=== PATIENT | male | born 1960 | race Two or more races ===

== ENCOUNTER 2020-06-30 13:23 | Outpatient (REF) | payer MEDICARE, MEDICAID, SELFPAY ==
--- NOTE | 2020-06-30 13:47 | ECG_ITS ---
Test Reason : CP Blood Pressure : / mmHG Vent. Rate : 070 BPM Atrial Rate : 070 BPM P-R Int : 156 ms QRS Dur : 090 ms QT Int : 388 ms P-R-T Axes : 048 -48 021 degrees QTc Int : 419 ms Normal sinus rhythm Left axis deviation Abnormal ECG When compared with ECG of 29-APR-2010 13:33, No significant change was found Referred By: Dinorah Pride Electronically Signed By:Cam Villavicencio
[2020-06-30 14:15] LABS: Basophils Percent Auto 0.2 % (0-2); Eosinophils Percent Auto 37.5 % (0-4); Hematocrit 41.6 % (42-52); Hemoglobin 14.2 g/dl (14.0-18.0); Imm Gran Abs Auto 0.01 X10*3/uL (0.00-0.03); Imm Gran Pct Auto 0.2 % (0.0-0.4); Lymphocytes Absolute Auto 0.7 X10*3/uL (1.2-4.9); Lymphocytes Percent Auto 12.1 % (20-40); MANUAL DIFF FLAG SCAN; Mean Corpuscular HGB Conc 34.1 g/dl (31.0-36.0); Mean Corpuscular Hemoglobin 32.3 pg (27.0-33.0); Mean Corpuscular Volume 94.5 fL (80-98); Mean Platelet Volume 9.7 fL (9.4-12.4); Monocytes Absolute Auto 0.5 X10*3/uL (0.1-1.2); Neutrophils Absolute Auto 2.2 X10*3/uL (2.0-8.3); Platelet Count 158 X10*3/uL (160-400); Red Cell Distribution Width 13.1 % (11.0-16.0); SCAN SMEAR FLAG 1; White Blood Count 5.4 X10*3/uL (4.8-10.8)
[2020-06-30 14:54] LABS: Alanine Aminotransferase 26 U/L (0-40); Albumin Level 4.4 g/dL (3.5-5.0); Alkaline Phosphatase 103 U/L (39-117); Aspartate Amino Transferase 18 U/L (5-37); Bilirubin Total 0.3 mg/dL (0.0-1.0); Blood Urea Nitrogen 17 mg/dL (9-16); Cholesterol 183 mg/dL; Estimated Glomerular Filt Rate > 60; Glucose Random 110 mg/dL (60-115); HDL Cholesterol 31 mg/dL; LDL Cholesterol Calculated 127 mg/dl; Total Protein 7.9 g/dL (6.5-8.0); Triglycerides 128 mg/dL
[2020-06-30 15:01] LABS: Troponin-I High Sensitivity < 3.5 ng/L (<3.5-35.0)
[2020-06-30 15:05] LABS: SLIDE REVIEW VERIFIED
[2020-06-30 15:09] LABS: Free T4 (Free Thyroxine) 0.79 ng/dL (0.71-1.85); Thyroid Stimulating Hormone 1.91 uIU/mL (0.32-4.0)
[2020-06-30 15:10] LABS: Anion Gap 14 (12-20); Carbon Dioxide 26 mmol/L (22-29); Chloride 104 mmol/L (96-108); Potassium 4.4 mmol/l (3.3-5.1); Sodium 140 mmol/L (135-145)
[2020-06-30 15:27] LABS: Folate 9.4 ng/mL (> or = 4.0); Vitamin B12 290 pg/mL (200-900)
== END 2020-06-30 13:24 | disposition home or self-care (01) ==
LOC: HO.LAB 13:23
PROVIDERS: Absent Provider Nurse Practitioner Family; PCP Internal Medicine; Visit Provider Internal Medicine
DX: I10 Essential (primary) hypertension (principal); E78.00 Pure hypercholesterolemia, unspecified; R07.9 Chest pain, unspecified; Z12.5 Encounter for screening for malignant neoplasm of prostate
CPT/HCPCS: 36415; 80053; 80061; 82607; 82746; 84153; 84439; 84443; 84484; 85025; 93005

== ENCOUNTER 2020-07-02 14:23 | Outpatient (REF) | payer MEDICARE, MEDICAID, SELFPAY | END 2020-07-02 14:24 | disposition home or self-care (01) | LOC: HO.LAB 14:23 | PROVIDERS: Visit Provider Internal Medicine | DX: Z20.828 Contact with and (suspected) exposure to other viral communicable diseases (principal) | CPT/HCPCS: 36415; C9803; U0003 ==

== ENCOUNTER 2020-07-18 05:36 | Emergency (ER) | payer MEDICARE, MEDICAID, SELFPAY ==
[2020-07-18 05:46] VITALS: BP 177/104; PULSE 92; RESP 16; TEMP 36.6; O2SAT 97
--- NOTE | 2020-07-18 05:53 | ECG_ITS ---
Test Reason : CHEST PAIN Blood Pressure : / mmHG Vent. Rate : 099 BPM Atrial Rate : 099 BPM P-R Int : 190 ms QRS Dur : 078 ms QT Int : 340 ms P-R-T Axes : 061 -65 072 degrees QTc Int : 436 ms Sinus rhythm with frequent Premature ventricular complexes Left axis deviation Inferior infarct , possibly acute Lateral injury pattern ACUTE [place] / STEMI Abnormal ECG When compared with ECG of 30-JUN-2020 13:58, Premature ventricular complexes are now Present ST elevation now present in Inferior leads Referred By: Michelle Kaur Electronically Signed By:JOSEPH SAWYER
--- NOTE | 2020-07-18 06:00 | PC.NURSE ---
PT TO ROOM WITH C/O MID STERNAL CP AND LEFT ARM NUMBNESS WHICH STARTED AROUND 2300 LAST NIGHT. PT DENIES NAUSEA/VOMITING AT THIS TIME. PT ARRIVES A&OX3 SKIN W/D. RESPIRATIONS EASY, N/L. MD AT BEDSIDE FOR EVAL AND EKG DONE TO MD FOR EVAL.
--- NOTE | 2020-07-18 06:07 | PC.NURSE ---
@ [address] [facility] STAT PAGE LINE CALLED [phone] FOR [facility] [employer] [employer] TENDER TAKES DR LESTER, CALL BACK NUMBER AND SAYS SHE WILL PLACE THE PAGE OUT TO DR RICHEY FOR OUR CALL BACK
--- NOTE | 2020-07-18 06:10 | PC.NURSE ---
@ 0609 [facility] CALLED FOR STEMI STANDBY JENNIFER TAKES PT INFO AND SAYS SHE WILL SEND THEM OVER @ 0610 CALL BACK FROM [facility] INTERVENTIONAL SHIPPING PACKER ANSWERS THIS CALL, DR HUTSON PAGED [id number] TO COSMETIC DENTIST
[2020-07-18] MEDS: Metoprolol Tartrate 5 MG/5 ML VIAL IVPUSH (06:15)
[2020-07-18 06:20] LABS: Basophils Percent Auto 0.3 % (0-2); Eosinophils Absolute Auto 2.5 X10*3/uL (0.0-0.4); Eosinophils Percent Auto 30.8 % (0-4); Hematocrit 39.2 % (42-52); Hemoglobin 13.7 g/dl (14.0-18.0); Imm Gran Abs Auto 0.01 X10*3/uL (0.00-0.03); Imm Gran Pct Auto 0.1 % (0.0-0.4); Lymphocytes Absolute Auto 0.8 X10*3/uL (1.2-4.9); Lymphocytes Percent Auto 10.2 % (20-40); MANUAL DIFF FLAG NO; Mean Corpuscular HGB Conc 34.9 g/dl (31.0-36.0); Mean Corpuscular Hemoglobin 32.3 pg (27.0-33.0); Mean Corpuscular Volume 92.5 fL (80-98); Mean Platelet Volume 9.4 fL (9.4-12.4); Monocytes Absolute Auto 0.3 X10*3/uL (0.1-1.2); Monocytes Percent Auto 4.1 % (2-11); Neutrophils Absolute Auto 4.4 X10*3/uL (2.0-8.3); Neutrophils Percent Auto 54.5 % (45-73); Platelet Count 200 X10*3/uL (160-400); Red Blood Count 4.24 X10*6/uL (4.60-5.80); Red Cell Distribution Width 12.3 % (11.0-16.0)
[2020-07-18] MEDS: Morphine Sulfate 2 MG/ML CARTRIDGE IVPUSH (06:20)
[2020-07-18] MEDS: Ticagrelor 90 MG TABLET 180 MG PO (06:20)
--- NOTE | 2020-07-18 06:20 | PC.NURSE ---
[facility] ARRIVES @ THIS TIME FOR ALS TRANSPORT TO [facility]
--- NOTE | 2020-07-18 06:30 | PC.NURSE ---
EMS TRANSPORTED PT TO [facility] [employer] [employer] [facility]PER[facility] AT THIS TIME. REPORT GIVEN TO [employer] OPER[employer].
--- NOTE | 2020-07-18 06:31 | PC.NURSE ---
[facility] [place] [facility]
--- NOTE | 2020-07-18 06:32 | ED_ITS ---
HPI - Chest Pain General Chief Complaint: Chest Pain Stated Complaint: CHEST PAIN Time Seen by Provider: 07/18/20 05:47 Source: patient Mode of arrival: ambulatory Limitations: no limitations History of Present Illness HPI narrative: Patient came to the emergency room complaining of substernal chest pain, dull, 03/06 that started at 23:00. Patient states that throughout the night the pain got worse. Patient has no cardiac history other than hypertension. MD complaint: chest pain Related Data Home Medications Medication Instructions Recorded Confirmed albuterol sulfate 90 mcg/actuation 2 puff INHALATION QID PRN 05/06/20 05/06/20 aerosol inhaler fluticasone furoate 200 1 inh INHALATION DAILY 05/06/20 05/06/20 mcg-vilanterol 25 mcg/dose inhalation powder Previous Rx's Medication Instructions Recorded dextromethorphan-guaifenesin 30 1 tab PO Q12H PRN 10 Days #20 tab 06/30/20 mg-600 mg tablet extended [id number] hr lisinopril 10 mg tablet 10 mg PO DAILY #90 tab 06/30/20 Allergies Allergy/AdvReac Type Severity Reaction Status Date / Time No Known Allergies Allergy Verified 05/06/20 13:33 Review of Systems Review of Systems: Constitutional : No Weight loss, No Fever, No Chills, No Night Sweats, No Fatigue, No Malaise ENT/Mouth : No Hearing loss, No Ear Pain, No Nasal Congestion, No Sinus Pain, No Hoarseness, No sore throat, No Rhinorrhea, No Swallowing Difficulty Eyes: No Eye Pain, No Swelling, No Redness, No Foreign Body, No Discharge, No Vision Changes Cardiovascular complaining of Chest Pain, No SOB, No Dyspnea on Exertion, No Orthopnea, No Edema, No Palpitations Respiratory : No Cough, No Sputum, No Wheezing, No Smoke Exposure, No Dyspnea Gastrointestinal : No Nausea, No Vomiting, No Diarrhea, No Constipation, No abdo nohemy Pain, No Hematochezia, No Melena Genitourinary : no irregular bleeding, No Dysuria, No Urinary Frequency, No Hematuria, No Urinary Incontinence, No Urgency, No Flank Pain, No Urinary Flow Changes, No Hesitancy Musculoskeletal : No joint pain, No Myalgias, No Joint Swelling Skin : No Skin Lesions, No rash Neuro : No Weakness, No Numbness, No Paresthesias, No Loss of Consciousness, No Dizziness, No Headache Psych : No Anxiety/Panic, No Depression, No SI/HI/AH/VH, No Social Issues, Heme/Lymph: No Bruising, No Bleeding,No Lymphadenopathy Endocrine : No Polyuria, No Polydipsia, No Temperature Intolerance [facility], [facility] Past Medical History Medical History Asthma Chest pain in adult Fatty liver GERD (gastroesophageal reflux disease) Hypertension Hypertriglyceridemia Impaired glucose tolerance Obesity (BMI 30-39.9) Surgical History (Updated 05/05/20 @ 08:30 by BONNIE Ferrer) No pertinent past surgical history Family History Family History (Updated 05/05/20 @ 08:30 by BONNIE Ferrer) Father Myocardial infarction Diabetes Mother Diabetes Social History Social History (Updated 05/06/20 @ 13:34 by Jai Sams MD) Alcohol intake: never Smoking Status: Never smoker Advance Directives: No Advance Directives Information Provided: No Physical Exam Vital Signs: Vital Signs: Last Vital Signs Temp 97.9 F 07/18/20 05:46 Pulse 92 07/18/20 05:46 Resp 16 07/18/20 05:46 BP 177/104 H 07/18/20 05:46 Pulse Ox 97 07/18/20 05:46 Body Mass Index 0.3 Appearance: Alert. Oriented X3. No acute distress. Eyes: Pupils equal, round and reactive to light. ENT: Pharynx normal. Neck: Normal inspection. Neck supple. No lymph nodes noted. No crepitus CVS: Normal heart rate and rhythm. Pulses normal. Normal S1 and S2 Respiratory: No respiratory distress. Breath sounds normal. No Wheezing. No rales Abdomen: Soft and nontender. No rigidity. No distention. good BS x4 Skin: Skin warm and dry. Normal skin color. Normal skin turgor. Extremities: No lower extremity edema. No lower extremity edema. No Lacerations. No Rash Neuro: Oriented X 3. No motor deficit. No sensory deficit. Moving all extermities. No slurred speech. Course Course Course Narrative: I discussed the patient with Dr. Trejo, patient is being transferred to the dentures lab technician. At this time of discharge, patient is still complaining of chest pain, states it is better, 8/10. received morphine, pt feeling better. Not diaphoretic. Pulse 92, 181/101. Of note, patient tested positive for COVID-19 on 07/02/2020. Patient has no respiratory symptoms. MDM - Chest Pain Lab Data Result diagrams: 07/18/20 06:14 07/18/20 06:14 ECG Data ECG #1: Attestation: I personally reviewed and interpreted this ECG as follows: (ST segment elevation in the inferior leads, and V3 through V6, acute STEMI) Discharge Plan Discharge Clinical Impression: ST elevation (STEMI) myocardial infarction Patient Disposition: Xfer [facility] Prescriptions: No Action albuterol sulfate 90 mcg/actuation HFA aerosol inhaler 2 puff inhalation QID PRNRF: 0 Breo Ellipta 200-25 mcg/dose blister with device 1 inh inhalation DAILY RF: 0 Mucinex DM 30-600 mg tablet extended release 12 hr 1 tab PO Q12H PRN (Reason: cough) 10 Days Qty: 20 RF: 0 lisinopril 10 mg tablet 10 mg PO DAILY Qty: 90 RF: 1
[2020-07-18 06:42] LABS: Anion Gap 15 (12-20); Blood Urea Nitrogen 26 mg/dL (9-16); Calcium 9.3 mg/dL (8.4-10.2); Carbon Dioxide 23 mmol/L (22-29); Chloride 102 mmol/L (96-108); Estimated Glomerular Filt Rate 59; Glucose Random 243 mg/dL (60-115); Sodium 136 mmol/L (135-145)
[2020-07-18] MEDS: Atorvastatin Calcium 80 MG TABLET PO (06:45)
[2020-07-18] MEDS: Aspirin Enteric Coated 325 MG TABLET.DR PO (06:48)
[2020-07-18] MEDS: Heparin Sodium,Porcine 5,000 UNIT/ML VIAL 5000 UNIT IVPUSH (06:54)
[2020-07-18 06:56] LABS: Troponin-I High Sensitivity 282.7 ng/L (<3.5-35.0)
[2020-07-18 07:00] LABS: IDNOW Serial# 9DD0AD1C
--- NOTE | 2020-07-18 07:02 | PC.NURSE ---
IV X 2 ESTABLISHED TO [facility]. LABS DRAWN TO LAB, PT MEDICATED PER [facility] AND EMS HERE FOR TRANSPORT TO PHARMACEUTICAL [facility]OT[facility]IST AT [facility].
[2020-07-18 07:03] LABS: COVID-19 Test Positive (Negative)
--- NOTE | 2020-07-18 07:17 | PC.NURSE ---
This RN witnessed the Heparin that was hung by Char Rodrigez RN. The heparin was hung at 14u/kg. Pt was an emergent STEMI transfer. Heparin was ordered by Dr. Kaur after consultation with Intermediate Accountant interventionalist.
== END 2020-07-18 07:06 | disposition short-term general hospital (02) ==
PROVIDERS: Emergency Provider Emergency Medicine; PCP Internal Medicine
DX: I21.19 ST elevation (STEMI) myocardial infarction involving other coronary artery of inferior wall (principal); U07.1 COVID-19; I10 Essential (primary) hypertension; E66.9 Obesity, unspecified; J45.909 Unspecified asthma, uncomplicated; K21.9 Gastro-esophageal reflux disease without esophagitis; K76.0 Fatty (change of) liver, not elsewhere classified
CPT/HCPCS: 36415; 80048; 84484; 85025; 87635; 93005; 96365; 96375; 96376; 99285; J2270

== ENCOUNTER 2020-09-13 20:11 | Emergency (ER) | payer MEDICARE, MEDICAID, SELFPAY ==
[2020-09-13 20:14] VITALS: BP 135/85; PULSE 74; RESP 18; TEMP 36.9; O2SAT 99
[2020-09-13 20:31] VITALS: BP 135/75; PULSE 69; RESP 18; O2SAT 98; BMI 31.5
--- NOTE | 2020-09-13 20:37 | ED_ITS ---
HPI - Allergic Reaction General Chief complaint: Allergic Reaction Stated complaint: ALLERGIC REACTION] Time Seen by Provider: 09/13/20 20:37 Source: patient Mode of arrival: ambulatory Limitations: no limitations History of Present Illness HPI narrative: Pleasant 60-year-old female presenting with his knees he has a history as noted below including history of asthma, hypertension in addition to other history as noted below he is on lisinopril which he has been on for many years now he has known seafood allergy he presents today with complaint of left- sided upper lip swelling this occurred this afternoon around 16:00 where he started noticing tingling and lip swelling that was relatively localized to the upper lip on the left side and there was no additional swelling of the tongue or difficulty breathing. States this may have been contributed to the fact that he had some takeout yesterday from a restaurant and though it did not have any obvious seafood it could have been the fried in the same oils but he is not certain it and he felt fine but this afternoon at 16:00 noted the lip swelling. In addition to this again he is on lisinopril. He denies any chest pain or shortness of breath no difficulty speaking, no sore throat, or tongue swelling, no rash or urticaria. No recent illness. MD complaint: facial swelling Severity: moderate Treatment prior to arrival: benadryl (25 mg Benadryl several hours prior to a rrive with no change) Previous Allergic Reaction History: none Related Data Home Medications Medication Instructions Recorded Confirmed atorvastatin 1 tab PO DAILY 09/13/20 09/13/20 benzonatate 1 cap PO BID PRN 09/13/20 09/13/20 fluticasone furoate-vilanterol 1 puff PO DAILY 09/13/20 09/13/20 [Breo Ellipta] fluticasone propionate 1 spray INTRANASAL BID 09/13/20 09/13/20 metoprolol succinate 1 tab PO DAILY 09/13/20 09/13/20 ticagrelor [Brilinta] 1 tab PO BID 09/13/20 09/13/20 zafirlukast 1 tab PO BID 09/13/20 09/13/20 Previous Rx's Medication Instructions Recorded prednisone 40 mg PO DAILY 5 Days #10 tab 09/13/20 Allergies Allergy/AdvReac Type Severity Reaction Status Date / Time No Known Allergies Allergy Verified 07/29/20 17:43 Review of Systems Review of Systems: Constitutional: No Weight loss, No Fever, No Chills, No Night Sweats, No Fatigue, No Malaise ENT/Mouth: No Hearing loss, No Ear Pain, No Nasal Congestion, No Sinus Pain, No Hoarseness, No sore throat, No Rhinorrhea, No Swallowing Difficulty Eyes: No Eye Pain, No Swelling, No Redness, No Foreign Body, No Discharge, No Vision Changes Cardiovascular: No Chest Pain, No SOB, No Dyspnea on Exertion, No Orthopnea, No Edema, No Palpitations Respiratory: No Cough, No Sputum, No Wheezing, No Smoke Exposure, No Dyspnea Gastrointestinal: No Nausea, No Vomiting, No Diarrhea, No Constipation, No abdominal Pain, No Hematochezia, No Melena Genitourinary: No Dysuria, No Urinary Frequency, No Hematuria, No Urinary Incontinence, No Urgency, No Flank Pain, No Urinary Flow Changes, No Hesitancy Musculoskeletal: No joint pain, No Myalgias, No Joint Swelling Skin: No Skin Lesions, No rash Neuro: No Weakness, No Numbness, No Paresthesias, No Loss of Consciousness, No Dizziness, No Headache Psych: No Social Issues Heme/Lymph: No Bruising, No Bleeding,No Lymphadenopathy Endocrine: No Polyuria, No Polydipsia, No Temperature Intolerance Yes all other systems are reviewed and are negative [facility] Past Medical History Medical History Asthma Chest pain in adult Fatty liver GERD (gastroesophageal reflux disease) Hypertension Hypertriglyceridemia Impaired glucose tolerance Obesity (BMI 30-39.9) Surgical History No pertinent past surgical history Status post cardiac catheterization Family History Family History (Updated 05/05/20 @ 08:30 by BONNIE Ferrer) Father Myocardial infarction Diabetes Mother Diabetes Social History Social History Alcohol intake: never Smoking Status: Never smoker Use of substances other than those prescribed or required for medical reasons: No Advance Directives: No Advance Directives Information Provided: No Physical Exam Vital Signs: Vital Signs: Last Vital Signs Temp 98.4 F 09/13/20 20:14 Pulse 60 09/13/20 21:56 Resp 18 09/13/20 21:56 BP 124/76 09/13/20 21:56 Pulse Ox 97 09/13/20 21:56 Body Mass Index 31.5 Reviewed Const: General: cooperative and healthy appearing; No acute distress or intoxicated appearing Nutritional Appearance: average body habitus Orientation/consciousness: patient oriented x3 HENMT: Other: Head: Yes normal to inspection Ears: hearing grossly normal bilaterally Eyes: General: appearance normal, both eyes and all related structures Visual Marin: normal visual marin by confrontation Neck: Neck: Yes normal visual inspection, No positive Brudzinski's sign, No positive Kernig's sign and No tender Thyroid: Thyroid normal Chest: Chest palpation & inspection: normal inspection of the chest Resp: Effort & Inspection: normal respiratory effort Cardio: Jugular venous distension: no JVD GI: Inspection: Yes normal to inspection Percussion: Yes normal to percussion Auscultation: normal bowel sounds : General: Yes no CVA tenderness Back/Spine/Pelvis: Back: no CVA tenderness Skin: General skin exam: no rashes or lesions noted Neuro: General: patient oriented x3 Extrem: General: Yes normal to inspection Course Course Course Narrative: No airway involvement. He medically stable. Very pleasant. Remote lip swelling typically seen and Wiliam related angioedema less likely from food allergy given the suspected food that he ate was over a day ago. He has been observed in the ED for 4 hours and was given Benadryl, Reglan and Solu- Medrol with no significant change. At this time will go ahead and have him stop his lisinopril. His blood pressure usually is where well managed and given this new reaction will try to defer on starting him on any additional medicat ion. He as well as the knees feel comfortable with plan they would like to go home they live on [address] next to the end of the parking lot of the hospital and and will come back if any worsening. Given clear precaution return and follow- up instructions. Stable for discharge. Discharge Plan Discharge Clinical Impression: Allergic angioedema Patient Disposition: Home, Self-Care Instructions: Angioedema (ED) Additional Instructions: The swelling on the left side of the upper lip is likely related to the blood pressure medication that you are taking (lisinopril ) though I have considered the possibility of this being related to the food that you ate but given that this is the day after this is less likely. At this time I will have you stop taking this medication and given this is very low dose and her blood pressure is overall well controlled there is no need to start additional medication here today. You will need to follow up with her primary care doctor to start alternative blood pressure medication in the near future. Return if any concerns of worsening swelling, trouble breathing, tongue swelling, scratchy throat, difficulty breathing. Otherwise follow up closely with your primary care. Thank you Prescriptions: New prednisone 20 mg tablet 40 mg PO DAILY 5 Days Qty: 10 RF: 0 Discontinued lisinopril 5 mg tablet 1 tab PO DAILY RF: 0 No Action atorvastatin 80 mg tablet 1 tab PO DAILY RF: 0 benzonatate 200 mg capsule 1 cap PO BID PRN (Reason: cough) RF: 0 metoprolol succinate 50 mg tablet extended release 24 hr 1 tab PO DAILY RF: 0 zafirlukast 20 mg tablet 1 tab PO BID RF: 0 fluticasone propionate 50 mcg/actuation spray,suspension 1 spray intranasal BID RF: 0 Brilinta 90 mg tablet 1 tab PO BID RF: 0 Breo Ellipta 200-25 mcg/dose blister with device 1 puff PO DAILY RF: 0 Referrals: [facility] [Primary Care Provider] - 2 days Interventions: ED Discharge Assessment Last Done: 09/13/20 23:53 Discharge Date/Time: 09/13/20 23:56
[2020-09-13] MEDS: methylPREDNISolone Sod Succ 125 MG/2 ML VIAL IVPUSH (20:46)
[2020-09-13] MEDS: diphenhydrAMINE HCL 50 MG/ML VIAL 25 MG IVPUSH (20:47)
[2020-09-13] MEDS: Famotidine/PF 20 MG/2 ML VIAL IVPUSH (20:49)
[2020-09-13 21:56] VITALS: BP 124/76; PULSE 60; RESP 18; O2SAT 97
--- NOTE | 2020-09-13 22:24 | PC.NURSE ---
Pt reports no change in swelling of left upper lip. unlabored resp. airway patent
--- NOTE | 2020-09-13 23:11 | PC.NURSE ---
pt reports not feeling better. swelling noticed to be slightly decreasing in lip.
== END 2020-09-13 23:56 | disposition home or self-care (01) ==
PROVIDERS: Emergency Provider Internal Medicine
DX: L23.6 Allergic contact dermatitis due to food in contact with the skin (principal); R22.9 Localized swelling, mass and lump, unspecified; Z79.899 Other long term (current) drug therapy
CPT/HCPCS: 96374; 96375; 99284; J1200; J2930

== ENCOUNTER 2020-10-27 09:20 | Outpatient (REF) | payer MEDICARE, MEDICAID, SELFPAY ==
[2020-10-27 10:23] LABS: MANUAL DIFF FLAG NO
[2020-10-27 10:36] LABS: Basophils Percent Auto 0.3 % (0-2); Eosinophils Absolute Auto 2.8 X10*3/uL (0.0-0.4); Eosinophils Percent Auto 31.9 % (0-4); Hematocrit 40.7 % (42-52); Hemoglobin 13.6 g/dl (14.0-18.0); Imm Gran Abs Auto 0.03 X10*3/uL (0.00-0.03); Imm Gran Pct Auto 0.3 % (0.0-0.4); Lymphocytes Absolute Auto 1.2 X10*3/uL (1.2-4.9); Lymphocytes Percent Auto 13.2 % (20-40); Mean Corpuscular HGB Conc 33.4 g/dl (31.0-36.0); Mean Corpuscular Hemoglobin 31.8 pg (27.0-33.0); Mean Corpuscular Volume 95.1 fL (80-98); Mean Platelet Volume 10.5 fL (9.4-12.4); Monocytes Absolute Auto 0.6 X10*3/uL (0.1-1.2); Monocytes Percent Auto 6.2 % (2-11); Neutrophils Absolute Auto 4.3 X10*3/uL (2.0-8.3); Neutrophils Percent Auto 48.1 % (45-73); Platelet Count 178 X10*3/uL (160-400); Red Blood Count 4.28 X10*6/uL (4.60-5.80); Red Cell Distribution Width 13.2 % (11.0-16.0); White Blood Count 8.9 X10*3/uL (4.8-10.8)
[2020-10-27 10:53] LABS: Alanine Aminotransferase 19 U/L (0-40); Albumin Level 4.2 g/dL (3.5-5.0); Alkaline Phosphatase 112 U/L (39-117); Anion Gap 11 (12-20); Aspartate Amino Transferase 16 U/L (5-37); Bilirubin Total 0.7 mg/dL (0.0-1.0); Blood Urea Nitrogen 21 mg/dL (9-16); Calcium 9.2 mg/dL (8.4-10.2); Carbon Dioxide 28 mmol/L (22-29); Chloride 106 mmol/L (96-108); Cholesterol 121 mg/dL; Estimated Glomerular Filt Rate > 60; Glucose Fasting 142 mg/dL (60-99); HDL Cholesterol 27 mg/dL; LDL Cholesterol Calculated 75 mg/dl; Potassium 4.1 mmol/L (3.3-5.1); Sodium 141 mmol/L (135-145); Total Protein 7.3 g/dL (6.5-8.0); Triglycerides 95 mg/dL
[2020-10-27 11:13] LABS: TSH reflex Free T4 2.94 uIU/mL (0.32-4.0)
[2020-10-27 16:46] LABS: Free T4 (Free Thyroxine) 0.72 ng/dL (0.71-1.85); Thyroid Stimulating Hormone 3.03 uIU/mL (0.32-4.0)
[2020-10-27 17:01] LABS: Folate 4.8 ng/mL (> or = 4.0); Vitamin B12 381 pg/mL (200-900)
[2020-10-27 17:17] LABS: Prostate Specific Antigen Scr 0.43 ng/mL (<0.05-4.0)
[2020-10-28 04:58] LABS: Estimated Average Glucose 134 mg/dL; Hemoglobin A1c % 6.3 %
== END 2020-10-27 09:21 | disposition home or self-care (01) ==
LOC: HO.LAB 09:20
PROVIDERS: PCP Internal Medicine; Visit Provider Physician Assistant
DX: I25.10 Atherosclerotic heart disease of native coronary artery without angina pectoris (principal); I10 Essential (primary) hypertension; E78.00 Pure hypercholesterolemia, unspecified; R73.02 Impaired glucose tolerance (oral)
CPT/HCPCS: 36415; 80053; 80061; 82607; 82746; 83036; 84153; 84439; 84443; 85025; 85027

== ENCOUNTER 2021-03-17 08:35 | Outpatient (REF) | payer MEDICARE, MEDICAID, SELFPAY ==
[2021-03-17 09:25] LABS: Estimated Average Glucose 309 mg/dL; Hemoglobin A1c % 12.4 %
[2021-03-17 09:49] LABS: Alanine Aminotransferase 25 U/L (0-40); Albumin Level 4.2 g/dL (3.5-5.0); Alkaline Phosphatase 121 U/L (39-117); Anion Gap 12 (12-20); Aspartate Amino Transferase 15 U/L (5-37); Bilirubin Total 0.8 mg/dL (0.0-1.0); Blood Urea Nitrogen 16 mg/dL (9-16); Calcium 9.8 mg/dL (8.4-10.2); Carbon Dioxide 27 mmol/L (22-29); Chloride 102 mmol/L (96-108); Cholesterol 91 mg/dL; Estimated Glomerular Filt Rate 48; Glucose Random 390 mg/dL (60-115); HDL Cholesterol 25 mg/dL; LDL Cholesterol Calculated 30 mg/dl; Sodium 137 mmol/L (135-145); Total Protein 7.2 g/dL (6.5-8.0); Triglycerides 180 mg/dL
[2021-03-17 11:50] LABS: Creatinine Urine 283.55 mg/dL
== END 2021-03-17 08:36 | disposition home or self-care (01) ==
LOC: HO.LAB 08:35
PROVIDERS: PCP Internal Medicine; Visit Provider Internal Medicine
DX: E78.00 Pure hypercholesterolemia, unspecified (principal); E11.65 Type 2 diabetes mellitus with hyperglycemia
CPT/HCPCS: 36415; 80053; 80061; 82043; 83036

== ENCOUNTER 2021-05-11 09:42 | Outpatient (REF) | payer MEDICARE, MEDICAID, SELFPAY ==
--- NOTE | 2021-05-11 09:48 | ECG_ITS ---
Test Reason : ascd Blood Pressure : / mmHG Vent. Rate : 056 BPM Atrial Rate : 056 BPM P-R Int : 148 ms QRS Dur : 092 ms QT Int : 414 ms P-R-T Axes : 043 -50 027 degrees QTc Int : 399 ms Sinus bradycardia Left anterior fascicular block Inferior-posterior infarct (cited on or before 18-JUL-2020) Abnormal ECG When compared with ECG of 18-JUL-2020 05:59, Premature ventricular complexes are no longer Present Vent. rate has decreased BY [address] no longer elevated in Inferior leads Referred By: Jai Sams Electronically Signed By:ALBERTO LIM MD
[2021-05-11 10:24] LABS: Basophils Percent Auto 0.4 % (0-2); Eosinophils Absolute Auto 2.7 X10*3/uL (0.0-0.4); Eosinophils Percent Auto 32.8 % (0-4); Hematocrit 38.7 % (42.0-52.0); Hemoglobin 13.1 g/dl (14.0-18.0); Imm Gran Abs Auto 0.01 X10*3/uL (0.00-0.03); Imm Gran Pct Auto 0.1 % (0.0-0.4); Lymphocytes Absolute Auto 1.1 X10*3/uL (1.2-4.9); Lymphocytes Percent Auto 13.5 % (20-40); Mean Corpuscular HGB Conc 33.9 g/dl (31.0-36.0); Mean Corpuscular Hemoglobin 31.6 pg (27.0-33.0); Mean Corpuscular Volume 93.3 fL (80.0-98.0); Mean Platelet Volume 9.9 fL (9.4-12.4); Monocytes Absolute Auto 0.5 X10*3/uL (0.1-1.2); Monocytes Percent Auto 5.7 % (2-11); Neutrophils Absolute Auto 3.9 x10*3/uL (2.0-8.3); Neutrophils Percent Auto 47.5 % (45-73); Platelet Count 159 X10*3/uL (160-400); Red Blood Count 4.15 X10*6/uL (4.60-5.80); Red Cell Distribution Width 13.2 % (11.0-16.0); White Blood Count 8.1 X10*3/uL (4.8-10.8)
[2021-05-11 10:32] LABS: MANUAL DIFF FLAG SCAN
[2021-05-11 10:53] LABS: SLIDE REVIEW VERIFIED
[2021-05-11 11:17] LABS: Alanine Aminotransferase 17 U/L (0-40); Albumin Level 4.4 g/dL (3.5-5.0); Alkaline Phosphatase 92 U/L (39-117); Anion Gap 9 (12-20); Aspartate Amino Transferase 13 U/L (5-37); Bilirubin Total 0.5 mg/dL (0.0-1.0); Blood Urea Nitrogen 21 mg/dL (9-16); Calcium 9.4 mg/dL (8.4-10.2); Carbon Dioxide 28 mmol/L (22-29); Chloride 103 mmol/L (96-108); Cholesterol 89 mg/dL; Estimated Glomerular Filt Rate > 60; Glucose Random 288 mg/dL (60-115); HDL Cholesterol 24 mg/dL; LDL Cholesterol Calculated 44 mg/dl; Sodium 136 mmol/L (135-145); Total Protein 7.7 g/dL (6.5-8.0); Triglycerides 107 mg/dL
[2021-05-11 11:21] LABS: Creatinine Urine 226.89 mg/dL
== END 2021-05-11 09:43 | disposition home or self-care (01) ==
LOC: HO.LAB 09:42
PROVIDERS: PCP Internal Medicine; Visit Provider Internal Medicine
DX: I25.118 Atherosclerotic heart disease of native coronary artery with other forms of angina pectoris (principal); E78.00 Pure hypercholesterolemia, unspecified; E11.65 Type 2 diabetes mellitus with hyperglycemia
CPT/HCPCS: 36415; 80053; 80061; 85025; 93005

== ENCOUNTER → 2021-09-11 10:47 | Outpatient (BNVA) | payer OTHER, MEDICARE, SELFPAY | PROVIDERS: PCP Internal Medicine; Visit Provider Internal Medicine Endocrinology, Diabetes & Metabolism | DX: E11.65 Type 2 diabetes mellitus with hyperglycemia (principal) | CPT/HCPCS: 82947; 99202 ==

== ENCOUNTER → 2021-09-15 09:53 | Outpatient (BNVA) | payer OTHER, MEDICARE, SELFPAY | PROVIDERS: PCP Internal Medicine; Visit Provider Dietitian, Registered | DX: E11.65 Type 2 diabetes mellitus with hyperglycemia (principal); Z71.3 Dietary counseling and surveillance | CPT/HCPCS: 97802 ==

== ENCOUNTER → 2021-09-21 07:55 | Outpatient (BNVA) | payer OTHER, SELFPAY | PROVIDERS: PCP Internal Medicine; Visit Provider Registered Nurse Diabetes Educator | DX: E11.65 Type 2 diabetes mellitus with hyperglycemia (principal); Z71.89 Other specified counseling | CPT/HCPCS: 99211 ==

== ENCOUNTER → 2021-10-14 12:21 | Outpatient (BNVA) | payer OTHER, SELFPAY | PROVIDERS: PCP Internal Medicine; Referring Provider Internal Medicine; Visit Provider Physician Assistant | DX: Z01.818 Encounter for other preprocedural examination (principal); J45.20 Mild intermittent asthma, uncomplicated; I25.118 Atherosclerotic heart disease of native coronary artery with other forms of angina pectoris | CPT/HCPCS: 99202 ==

== ENCOUNTER → 2021-10-26 07:54 | Outpatient (BNVA) | payer OTHER, SELFPAY | PROVIDERS: PCP Internal Medicine; Visit Provider Registered Nurse Diabetes Educator | DX: E11.65 Type 2 diabetes mellitus with hyperglycemia (principal); Z79.4 Long term (current) use of insulin; Z96.41 Presence of insulin pump (external) (internal) | CPT/HCPCS: 99211 ==

== ENCOUNTER → 2021-10-30 10:55 | Outpatient (BNVA) | payer OTHER, SELFPAY | PROVIDERS: PCP Internal Medicine; Visit Provider Dietitian, Registered | DX: E11.65 Type 2 diabetes mellitus with hyperglycemia (principal) | CPT/HCPCS: 97803 ==

== ENCOUNTER → 2021-12-23 09:56 | Outpatient (BNVA) | payer OTHER, SELFPAY | PROVIDERS: PCP Internal Medicine; Visit Provider Dietitian, Registered | DX: E11.65 Type 2 diabetes mellitus with hyperglycemia (principal); Z71.3 Dietary counseling and surveillance | CPT/HCPCS: 97803 ==

== ENCOUNTER → 2022-01-01 08:53 | Outpatient (BNVA) | payer OTHER, SELFPAY | PROVIDERS: PCP Internal Medicine; Visit Provider Internal Medicine Endocrinology, Diabetes & Metabolism | DX: E11.65 Type 2 diabetes mellitus with hyperglycemia (principal) | CPT/HCPCS: 82947; 99212 ==

== ENCOUNTER → 2022-01-11 15:27 | Outpatient (REF) | payer OTHER, SELFPAY ==
--- NOTE | 2022-01-11 15:32 | ECG_ITS ---
Test Reason : preop Blood Pressure : / mmHG Vent. Rate : 065 BPM Atrial Rate : 065 BPM P-R Int : 186 ms QRS Dur : 092 ms QT Int : 404 ms P-R-T Axes : 067 -39 030 degrees QTc Int : 420 ms Normal sinus rhythm Left axis deviation Abnormal ECG When compared with ECG of 11-MAY-2021 09:58, No significant change was found Referred By: Jai Sams Electronically Signed By:Cam Villavicencio
[2022-01-11 16:06] LABS: Basophils Percent Auto 0.5 % (0-2); Eosinophils Absolute Auto 1.7 X10*3/uL (0.0-0.4); Hematocrit 38.6 % (42.0-52.0); Imm Gran Abs Auto 0.01 X10*3/uL (0.00-0.03); Imm Gran Pct Auto 0.2 % (0.0-0.4); Lymphocytes Absolute Auto 1.3 X10*3/uL (1.2-4.9); Lymphocytes Percent Auto 20.1 % (20-40); MANUAL DIFF FLAG SCAN; Mean Corpuscular HGB Conc 33.7 g/dl (31.0-36.0); Mean Corpuscular Hemoglobin 31.6 pg (27.0-33.0); Mean Corpuscular Volume 93.9 fL (80.0-98.0); Mean Platelet Volume 9.4 fL (9.4-12.4); Monocytes Absolute Auto 0.5 X10*3/uL (0.1-1.2); Monocytes Percent Auto 7.5 % (2-11); Neutrophils Absolute Auto 2.8 x10*3/uL (2.0-8.3); Neutrophils Percent Auto 44.7 % (45-73); Platelet Count 155 X10*3/uL (160-400); Red Blood Count 4.11 X10*6/uL (4.60-5.80); Red Cell Distribution Width 13.9 % (11.0-16.0); SCAN SMEAR FLAG 1; White Blood Count 6.3 X10*3/uL (4.8-10.8)
[2022-01-11 16:24] LABS: Anion Gap 11 (12-20); Blood Urea Nitrogen 17 mg/dL (9-16); Calcium 8.7 mg/dL (8.4-10.2); Carbon Dioxide 24 mmol/L (22-29); Chloride 108 mmol/L (96-108); Estimated Glomerular Filt Rate > 60; Glucose Random 80 mg/dL (60-115); Potassium 3.8 mmol/L (3.3-5.1); Sodium 139 mmol/L (135-145)
[2022-01-11 16:57] LABS: SLIDE REVIEW VERIFIED
== END ==
LOC: HO.CARD 15:27
PROVIDERS: PCP Internal Medicine; Visit Provider Internal Medicine
DX: Z01.818 Encounter for other preprocedural examination (principal); R00.2 Palpitations
CPT/HCPCS: 36415; 80048; 85025; 93005; 93306

== ENCOUNTER → 2022-02-01 07:52 | Outpatient (BNVA) | payer OTHER, SELFPAY | PROVIDERS: PCP Internal Medicine; Visit Provider Registered Nurse Diabetes Educator | DX: E11.65 Type 2 diabetes mellitus with hyperglycemia (principal) | CPT/HCPCS: 99211 ==

== ENCOUNTER → 2022-02-22 09:12 | Outpatient (REF) | payer OTHER, SELFPAY ==
--- NOTE | 2022-02-22 09:34 | CA_ITS ---
Transthoracic Echocardiogram Patient (Last, First, Middle): Nader Valdez, Gender: Male Date of : 1960 Age: 61 Procedure Date: 02/22/2022 Procedure Type: Transthoracic Echocardiogram Location: OP Height: 160.02 cm Weight: 78.02 kg BSA: 1.81 m2 Heart Rate: 60 bpm BP: 125 / 80 mmHg Technical Support Professional: AMARJIT Referring MD: Jai Sams MD Engineering Secretary: Anthony Allen MD Symptoms: I25.118 - Atherosclerotic heart disease of [place] coronary artery with o... Study Quality: Fair ECG Rhythm: Sinus Conclusions: - 1. Normal LV systolic function with impaired relaxation filling pattern with wall motion abnormality of the basal inferior wall 2. Normal cardiac valvular Doppler 3. Normal RV systolic pressure 4. No gross pericardial effusion Findings Left Ventricle Normal left ventricular size, thickness, and systolic function. The visually estimated ejection fraction is between 55-60%. Spectral Doppler is indicative of an impaired relaxation filling pattern. E/E prime ratio is between 8 and 15 consistent with indeterminate filling pressures. Wall Motion Rest Echo Findings The basal inferior segment is akinetic. Right Ventricle Normal right ventricular cavity size and systolic function. Atria The left atrium is normal in size. Interatrial shunt cannot be excluded. The right atrium was not well visualized. Aortic Valve The aortic valve structure and function is likely normal. There is no aortic valve stenosis. There is no aortic valve regurgitation. Mitral Valve Likely normal mitral valve structure and function. There is trace mitral valve regurgitation. There is no mitral valve stenosis. Pulmonic Valve The pulmonic valve was not well visualized. Tricuspid Valve Likely normal tricuspid valve structure and function. There is trace tricuspid valve regurgitation. The right ventricular systolic pressure is normal. The right ventricular systolic pressure is 17 mmHg. Normal right atrial pressure. There is no evidence of pulmonary hypertension. Great Vessels All visible segments of the aorta are normal in size. The pulmonary artery was not well visualized. Venous The inferior vena cava is normal in size and collapses greater than 50% with inspiration. Pericardium/Pleural There is no evidence of pericardial effusion. Prior Study Comparison No prior study available for comparison. Measurements 2D Linear Measurements IVSd: 0.85 0.6-0.9/0.6-1.0 cm LVIDd: 4.62 3.9-5.3/4.2-5.9 cm LVIDd Index: 2.55 2.4-3.2/2.2-3.1 cm/m2 LVIDs: 2.78 2.0-3.6 cm LVPWd: 0.86 0.7-1.1 cm LA Diam: 2.90 2.7-3.8/3.0-4.0 cm LAIDs Index: 1.60 1.5-2.3 cm/m2 LV Mass: 160.98 67-162/88-224 g LV Mass Index: 88.94 43-95/49-115 g/m2 LVOT Diam: 2.10 3.0+(-)1.3 cm 2D Systolic Function EF 4C: 50.40 >55% EF 2C: 64.80 >55% EF BiP: 56.10 >55% Mitral Valve MV Pk E: 0.85 MV PK A: 0.97 MV Decel Time: 234.00 E/A: 0.90 E'Lateral: 6.42 E'Medial: 5.66 E/E' Med: 15.00 E/E' Lat: 13.20 PHT: 68.00 MVA PHT: 3.24 Decel Haralson: 3.63 Aortic Valve AoV Pk Alejandro: 1.03 AoV Mn Alejandro: 0.73 AoV VTI: 0.23 AoV Pk Grad: 4.00 Aov Mn Grad: 2.00 NIRU Cont.VTI: 2.59 LVOT LVOT Pk Alejandro: 0.74 LVOT Mn Alejandro: 0.54 LVOT VTI: 0.17 LVOT Pk Grad: 2.00 LVOT Mn Grad: 1.00 LVOT Diam: 2.10 LVOT Area: 3.46 Diastolic Function MV Pk E: 0.85 MV Pk A: 0.97 E/A: 0.90 E'Medial: 5.66 E/E' Med: 15.00 E' Laterial: 6.42 E/E' Lat: 13.20 Right Ventricle TAPSE (mm): 16.50 TVS' Alejandro: 12.60 Tricuspid Valve TR Pk Alejandro: 1.87 TR Pk Grad: 14.00 RA Press: 3.00 RVSP: 17.00 Great Vessels Aorta Sinus of Valsalva: 3.10 2.0-3.5 cm Ao Asc: 3.40 2.1-3.4 cm Pulmonary Valve PV Pk Alejandro: 0.91 Peak PV Grad: 3.00 Updated in Other Vendor System with Status of Final Anthony Allen MD electronically signed on 02/22/2022 11:30:29 AM with status of Final
== END ==
LOC: HO.CARD 09:12
PROVIDERS: PCP Internal Medicine; Visit Provider Internal Medicine
DX: I25.118 Atherosclerotic heart disease of native coronary artery with other forms of angina pectoris (principal)
CPT/HCPCS: 93306

== ENCOUNTER 2022-05-05 10:52 | Day surgery (SDC) | payer OTHER, SELFPAY ==
--- NOTE | 2022-02-09 09:01 | HO.ANESPROP2 ---
HPI - Anesthesia Eval Consult details Narrative: 61yo M for Colonoscopy GI provider requested cardiac and pulmonary clearance. Medically cleared by PCP. [facility] Active Problems Active Problems: All Active Problems (Updated 02/04/22 @ 14:54 by April Morillo, SHAHIDA) Hypercholesterolemia (Acute) CVA (cerebral vascular accident) (Acute) CAD (coronary artery disease) (Acute) Type 2 diabetes mellitus with hyperglycemia (Acute) Balanitis (Acute) Encounter for screening colonoscopy (Acute) Preop exam for internal medicine (Acute) Colon cancer screening (Acute) Asthma (Acute) Hypertension (Acute) Past Medical History Medical History (Updated 02/04/22 @ 14:54 by April Morillo RN) Asthma Fatty liver GERD (gastroesophageal reflux disease) Hypertension Hypertriglyceridemia On beta cm at home Family History Family History Father Myocardial infarction Diabetes Mother Diabetes Skin cancer Surgical History Surgical History History of colonoscopy Status post cardiac catheterization Social History Social History Housing: Apartment Alcohol intake: never Patient Tobacco Use Status: Never used Tobacco e-Cigarette/Vaping Use: Never Used Second Hand Smoke Exposure: No service: No Current occupational status: disabled Current occupational exposures/hazards: No Cognitive needs: No Hearing needs: No Vision needs: Yes Meds Allergies Allergy/AdvReac Type Severity Reaction Status Date / Time lisinopril Allergy Intermediate Angioedema Verified 01/11/22 15:02 metformin AdvReac Intermediate abd pain Verified 01/11/22 15:02 Home Medications Medication Instructions Recorded Confirmed Last Taken Type zafirlukast 20 mg tablet 1 tab PO BID 09/13/20 02/04/22 Unknown History aspirin 81 mg tablet,delayed 81 mg PO DAILY 09/15/20 02/04/22 Unknown History release (Adult Low Dose Aspirin) albuterol sulfate 90 mcg/actuation 2 puff inhalation Q4-6H PRN 12/22/20 02/04/22 Unknown History aerosol inhaler (ProAir HFA) Wheezing fluticasone furoate 200 1 inh inhalation DAILY 12/22/20 02/04/22 Unknown History mcg-vilanterol 25 mcg/dose inhalation powder (Breo Ellipta) Exam Exam Date and Time: February 09, 2022 0901 Pertinent Lab Results Pertinent Lab Results: Laboratory Tests 01/11/22 01/11/22 15:40 15:40 WBC 6.3 Hgb 13.0 L Hct 38.6 L Plt Count 155 L Sodium 139 Potassium 3.8 Chloride 108 Carbon Dioxide 24 BUN 17 H Creatinine 1.11 Narrative Narrative: EKG 12/2021 Vent. Rate : 065 BPM ? ? Atrial Rate : 065 BPM ?? P-R Int : 186 ms? QRS Dur : 092 ms ? ? QT Int : 404 ms ? ? ? P-R-T Axes : 067 -39 030 degrees ?? QTc Int : 420 ms ? Normal sinus rhythm Left axis deviation Abnormal ECG When compared with ECG of 11-MAY-2021 09:58, No significant change was found Assessment and Plan Assessment Anesthesia Assessment: Chart Reviewed
--- NOTE | 2022-05-04 09:10 | P.CONAN_ITS ---
Documented by User: Kelli Sage NP 05/04/22 09:18 HPI - Anesthesia Eval Consult details Narrative: 61yo M for Colonoscopy Pulmo cleared CAD stable per 02/2022 PCP visit [facility] Active Problems Active Problems: All Active Problems (Updated 04/06/22 @ 14:43 by LANIE Guajardo) Obesity (BMI 30-39.9) (Acute) Hypercholesterolemia (Acute) CVA (cerebral vascular accident) (Acute) CAD (coronary artery disease) (Acute) Type 2 diabetes mellitus with hyperglycemia (Acute) Balanitis (Acute) Encounter for screening colonoscopy (Acute) Preop exam for internal medicine (Acute) Colon cancer screening (Acute) Asthma (Acute) Hypertension (Acute) Past Medical History Medical History Asthma Fatty liver GERD (gastroesophageal reflux disease) Hypertension Hypertriglyceridemia On beta cm at home Family History Family History Father Myocardial infarction Diabetes Mother Diabetes Skin cancer Surgical History Surgical History History of colonoscopy Status post cardiac catheterization Social History Social History Housing: Apartment Alcohol intake: never Patient Tobacco Use Status: Never used Tobacco e-Cigarette/Vaping Use: Never Used Second Hand Smoke Exposure: No Use of substances other than those prescribed or required for medical reasons: No Are you DNR?: No Advance Directives: No Advance Directives Information Provided: Yes service: No Current occupational status: disabled Current occupational exposures/hazards: No Cognitive needs: No Hearing needs: No Vision needs: Yes Meds Allergies Allergy/AdvReac Type Severity Reaction Status Date / Time lisinopril Allergy Intermediate Angioedema Verified 04/29/22 15:32 metformin AdvReac Intermediate abd pain Verified 04/29/22 15:32 Home Medications Medication Instructions Recorded Confirmed Last Taken Type zafirlukast 20 mg tablet 1 tab PO BID 09/13/20 04/06/22 Unknown History aspirin 81 mg tablet,delayed 81 mg PO DAILY 09/15/20 04/06/22 Unknown History release (Adult Low Dose Aspirin) albuterol sulfate 90 mcg/actuation 2 puff inhalation Q4-6H PRN 12/22/20 04/06/22 Unknown History aerosol inhaler (ProAir HFA) Wheezing fluticasone furoate 200 1 inh inhalation DAILY 12/22/20 04/06/22 05/05/22 History mcg-vilanterol 25 mcg/dose inhalation powder (Breo Ellipta) Exam Exam Date and Time: May 04, 2022 0910 Pertinent Lab Results Pertinent Lab Results: Laboratory Tests 01/11/22 01/11/22 15:40 15:40 WBC 6.3 Hgb 13.0 L Hct 38.6 L Plt Count 155 L Sodium 139 Potassium 3.8 Chloride 108 Carbon Dioxide 24 BUN 17 H Creatinine 1.11 Narrative Narrative: EKG 12/2021 Vent. Rate : 065 BPM ? ? Atrial Rate : 065 BPM ?? P-R Int : 186 ms? QRS Dur : 092 ms ? ? QT Int : 404 ms ? ? ? P-R-T Axes : 067 -39 030 degrees ?? QTc Int : 420 ms ? Normal sinus rhythm Left axis deviation Abnormal ECG When compared with ECG of 11-MAY-2021 09:58, No significant change was found ECHO 01/2022 Conclusions: - 1. Normal LV systolic function with impaired relaxation filling pattern with wall motion abnormality of the basal inferior wall? 2. Normal cardiac valvular Doppler ? 3. Normal RV systolic pressure ? 4. No gross pericardial effusion ? Assessment and Plan Assessment Anesthesia Assessment: Chart Reviewed Documented by User: Delaney Haro MD 05/05/22 12:14 [facility] Past Medical History Medical History Asthma Fatty liver GERD (gastroesophageal reflux disease) Hypertension Hypertriglyceridemia On beta cm at home Family History Family History Father Myocardial infarction Diabetes Mother Diabetes Skin cancer Family history of problems with anesthesia: No Surgical History Surgical History History of colonoscopy Status post cardiac catheterization Social History Social History Housing: Apartment Alcohol intake: never Patient Tobacco Use Status: Never used Tobacco e-Cigarette/Vaping Use: Never Used Second Hand Smoke Exposure: No Use of substances other than those prescribed or required for medical reasons: No Are you DNR?: No Advance Directives: No Advance Directives Information Provided: Yes service: No Current occupational status: disabled Current occupational exposures/hazards: No Cognitive needs: No Hearing needs: No Vision needs: Yes Meds Allergies Allergy/AdvReac Type Severity Reaction Status Date / Time lisinopril Allergy Intermediate Angioedema Verified 04/29/22 15:32 metformin AdvReac Intermediate abd pain Verified 04/29/22 15:32 Home Medications Medication Instructions Recorded Confirmed Last Taken Type zafirlukast 20 mg tablet 1 tab PO BID 09/13/20 04/06/22 Unknown History aspirin 81 mg tablet,delayed 81 mg PO DAILY 09/15/20 04/06/22 Unknown History release (Adult Low Dose Aspirin) albuterol sulfate 90 mcg/actuation 2 puff inhalation Q4-6H PRN 12/22/20 04/06/22 Unknown History aerosol inhaler (ProAir HFA) Wheezing fluticasone furoate 200 1 inh inhalation DAILY 12/22/20 04/06/22 05/05/22 History mcg-vilanterol 25 mcg/dose inhalation powder (Breo Ellipta) Assessment and Plan Final Anesthetic Review Family History of Problems with Anesthesia: No
[2022-05-05 11:13] VITALS: BP 136/83; PULSE 71; RESP 16; TEMP 36.3; O2SAT 97
[2022-05-05 11:20] VITALS: BMI 30.9
[2022-05-05] MEDS: Lactated Ringers 1,000 ML 100 ML IVCONT (11:21)
[2022-05-05 11:25] LABS: Glucose, Whole Blood 98 mg/dL (60-115)
--- NOTE | 2022-05-05 11:52 | MHC.SHP ---
Pre-Procedural Eval Section A Date of Service: 05/05/22 Section B Chief Complaint: screening Relevant Family History (Specify if Yes): No Relevant Social History: None Present Medications: see Short Stay Collaborative assessment Medical History: Significant History (Asthma Fatty liver GERD (gastroesophageal reflux disease) Hypertension Hypertriglyceridemia On beta cm at home) History of Previous Operations: Relevant previous surgery/procedure and date(s) (cardiac cath) Allergies: Allergies Allergy/AdvReac Type Severity Reaction Status Date / Time lisinopril Allergy Intermediate Angioedema Verified 04/29/22 15:32 metformin AdvReac Intermediate abd pain Verified 04/29/22 15:32 Review of Systems Sugical H&P ROS: Negative: Constitution, Cardiovascular, Respiratory, Neurological, Psychiatric, Hem-Onc, Allergic/Immunologic, Gastrointestinal, Genitourinary, Musculoskeletal, Integumentary, Endocrine and Eyes/Ears/Nose/Throat Exam Surgical H&P Exam: Normal: HEENT, Normal: Heart, Normal: Lungs, Normal: Extremities, Normal: Abdomen, Normal: Skin and Normal: Neurological Plan Diagnosis/Plan: Unchanged I have reviewed the history and physical and performed a pertinent physical examination on my patient. No changes have occurred unless specified.
--- NOTE | 2022-05-05 12:14 | HO.ANESPROP2 ---
[facility] Active Problems Active Problems: All Active Problems (Updated 04/06/22 @ 14:43 by LANIE Guajardo) Obesity (BMI 30-39.9) (Acute) Hypercholesterolemia (Acute) CVA (cerebral vascular accident) (Acute) CAD (coronary artery disease) (Acute) Type 2 diabetes mellitus with hyperglycemia (Acute) Balanitis (Acute) Encounter for screening colonoscopy (Acute) Preop exam for internal medicine (Acute) Colon cancer screening (Acute) Asthma (Acute) Hypertension (Acute) Past Medical History Medical History Asthma Fatty liver GERD (gastroesophageal reflux disease) Hypertension Hypertriglyceridemia On beta cm at home Family History Family History Father Myocardial infarction Diabetes Mother Diabetes Skin cancer Family history of problems with anesthesia: No Surgical History Surgical History History of colonoscopy Status post cardiac catheterization History of Problems with Anesthesia: No Social History Social History Housing: Apartment Alcohol intake: never Patient Tobacco Use Status: Never used Tobacco e-Cigarette/Vaping Use: Never Used Second Hand Smoke Exposure: No Use of substances other than those prescribed or required for medical reasons: No Are you DNR?: No Advance Directives: No Advance Directives Information Provided: Yes service: No Current occupational status: disabled Current occupational exposures/hazards: No Cognitive needs: No Hearing needs: No Vision needs: Yes Meds Allergies Allergy/AdvReac Type Severity Reaction Status Date / Time lisinopril Allergy Intermediate Angioedema Verified 04/29/22 15:32 metformin AdvReac Intermediate abd pain Verified 04/29/22 15:32 Active Medications: Current Medications Albuterol Sulfate (Albuterol Sulfate (0.083%) 2.5 Mg/3 Ml Vial.Neb) 2.5 mg INHALE ONCE PRN PRN Reason: Shortness of Breath/Wheezing Lactated Ringer's (Lr) 1,000 mls @ 100 mls/hr IVCONT .Q10H YASMEEN Last Admin: 05/05/22 11:21 Dose: 100 mls/hr Home Medications Medication Instructions Recorded Confirmed Last Taken Type zafirlukast 20 mg tablet 1 tab PO BID 09/13/20 04/06/22 Unknown History aspirin 81 mg tablet,delayed 81 mg PO DAILY 09/15/20 04/06/22 Unknown History release (Adult Low Dose Aspirin) albuterol sulfate 90 mcg/actuation 2 puff inhalation Q4-6H PRN 12/22/20 04/06/22 Unknown History aerosol inhaler (ProAir HFA) Wheezing fluticasone furoate 200 1 inh inhalation DAILY 12/22/20 04/06/22 05/05/22 History mcg-vilanterol 25 mcg/dose inhalation powder (Breo Ellipta) Exam Exam Date and Time: May 05, 2022 1214 Height,Weight and Vital Signs: Height 5 ft 3 in Weight 79.379 kg Last Vital Signs Temp 97.3 F 05/05/22 11:13 Pulse 71 05/05/22 11:13 Resp 16 05/05/22 11:13 BP 136/83 05/05/22 11:13 Pulse Ox 97 05/05/22 11:13 O2 Del Method 05/05/22 11:13 Pertinent Lab Results Pertinent Lab Results: Laboratory Tests 05/05/22 11:15 POC Glucose 98 Airway Mallampati Class: II TM Dist: >3cm Neck ROM: Full Partial: Upper Heart: RRR Lungs: CTA Assessment and Plan Final Anesthetic Review Family History of Problems with Anesthesia: No History of Problems with Anesthesia: No NPO: Yes ASA Class: II Final Preanesthetic Review: No Changes in Pt Med Stat, Meds/Allgs Chart Reviewed, Consent Obtained/Reviewed and Anes Risks/Benef Reviewed Patient Risk: Low Procedure Risk: Low Anesthetic Plan Anesthetic Plan: MAC: Disposition: Standard PACU
--- NOTE | 2022-05-05 12:20 | P.OP_ITS ---
Operative Note Operative Note Date of Service: 05/05/22 Narrative: Operative Information Procedure Description: Colonoscopy Indication: screening Anesthesia: MAC COLONOSCOPY Instrument: Olympus variable stiffness pediatric scope 190L Colonoscopy Monitoring: Vital signs and clinical assessment, continuous EKG monitoring, Pulse oximetry, Carbon Dioxide monitoring and blood pressure monitoring were done throughout the procedure. Colon withdrawal time was 8 minutes. Procedure: The patient was placed in the left lateral decubitis position and pre-procedure medications were administered. After a digital rectal examination of the ano-rectum, the video colonoscope was inserted into the rectum and advanced through the colon to the cecum/TI. The colonoscope was slowly withdrawn in a retrograde panoramic fashion and the colon mucosa was carefully examined including a retroflexed view of the rectum. Findings and interventions are described below. Procedure Difficulty: easy Findings: Terminal Ileum-normal Cecum:normal Ascending Colon: normal Transverse Colon -normal Descending Colon:normal Sigmoid Colon: mild diverticulosis Rectum: Retroflexion with small internal hemorrhoids, grade I Anorectum - normal Colon preparation: [place] Bowel Preparation Scale Right colon; 1-2 Transverse colon: 1-2 Left colon; 2 (0 = Unprepared colon segment with mucosa not seen due to solid stool that cannot be cleared. 1 = Portion of mucosa of the colon segment seen, but other areas of the colon segment not well seen due to staining, residual stool and/or opaque liquid. 2 = Minor amount of residual staining, small fragments of stool and/or opaque liquid, but mucosa of colon segment seen well. 3 = Entire mucosa of colon segment seen well with no residual staining, small fragments of stool or opaque liquid) Impression and Post Procedure Diagnosis: fair prep diverticulosis internal hemorrhoids Plan: High fiber diet leaflet Avoid straining at stool, epsom salts and sitz bath, anusol supps or cream Repeat Colonoscopy in 1-2 years due to prep or earlier if clinically indicated Above findings were reviewed with the patient and relevant handouts were provided if indicated.
[2022-05-05 12:27] VITALS: BP 104/60; PULSE 67; RESP 16; TEMP 36.9; O2SAT 96
[2022-05-05 12:42] VITALS: BP 125/78; PULSE 65; RESP 18; TEMP 36.4; O2SAT 96
--- NOTE | 2022-05-05 12:49 | HO.POSTANES ---
Post Anesthesia Evaluation Post Anesthesia Evaluation Vital Signs: Vital Signs Temp Pulse Resp BP Pulse Ox O2 Del Method 05/05/22 11:13 97.3 F 71 16 136/83 97 Room Air Anesthesia: Monitored Mental Status: Awake Pain Control: Satisfactory Nausea/Vomiting: None Hydration: Adequate Anesthesia-Related Issues: No Anes. Related Issues
== END 2022-05-05 13:33 | disposition home or self-care (01) ==
PROVIDERS: PCP Internal Medicine; Visit Provider Internal Medicine Gastroenterology
PROC: 0DJD8ZZ Inspection of Lower Intestinal Tract, Via Natural or Artificial Opening Endoscopic (ICD-10-PCS; CPT 45378; principal; 2022-05-05 12:50)
DX: Z12.11 Encounter for screening for malignant neoplasm of colon (principal); K57.30 Diverticulosis of large intestine without perforation or abscess without bleeding; K64.0 First degree hemorrhoids; K76.0 Fatty (change of) liver, not elsewhere classified; K21.9 Gastro-esophageal reflux disease without esophagitis; I10 Essential (primary) hypertension; E78.1 Pure hyperglyceridemia; J45.909 Unspecified asthma, uncomplicated; Z79.51 Long term (current) use of inhaled steroids; Z79.82 Long term (current) use of aspirin; Z79.899 Other long term (current) drug therapy; Z88.8 Allergy status to other drugs, medicaments and biological substances
CPT/HCPCS: G0121; 82947

== ENCOUNTER 2022-05-24 08:06 | Outpatient (REF) | payer OTHER, SELFPAY ==
[2022-05-24 08:21] LABS: Retic HGB Equivalent 37.5 pg (30.0-35.0); Reticulocyte Percent 2.4 % (0.5-1.8)
[2022-05-24 08:54] LABS: Iron 79 mcg/dL (45-160); Percent Iron Saturation 28 % (15-50); Total Iron Binding Capacity 281 mcg/dL (228-428); Unsaturated Iron Binding 202 ug/dL
[2022-05-24 09:14] LABS: Ferritin 70 ng/mL (20-250)
== END 2022-05-24 08:07 | disposition home or self-care (01) ==
LOC: HO.LAB 08:06
PROVIDERS: PCP Internal Medicine; Visit Provider Internal Medicine
DX: K57.30 Diverticulosis of large intestine without perforation or abscess without bleeding (principal); K64.9 Unspecified hemorrhoids; I25.118 Atherosclerotic heart disease of native coronary artery with other forms of angina pectoris; Z79.899 Other long term (current) drug therapy
CPT/HCPCS: 36415; 82728; 83540; 85045; 99212

== ENCOUNTER 2022-07-08 09:46 | Outpatient (REF) | payer OTHER, SELFPAY ==
[2022-07-08 10:19] LABS: Basophils Percent Auto 0.6 % (0-2); Eosinophils Absolute Auto 2.1 X10*3/uL (0.0-0.4); Eosinophils Percent Auto 31.8 % (0-4); Hematocrit 40.5 % (42.0-52.0); Hemoglobin 13.5 g/dl (14.0-18.0); Imm Gran Abs Auto 0.01 X10*3/uL (0.00-0.03); Imm Gran Pct Auto 0.2 % (0.0-0.4); Lymphocytes Absolute Auto 1.2 X10*3/uL (1.2-4.9); Lymphocytes Percent Auto 18.4 % (20-40); MANUAL DIFF FLAG SCAN; Mean Corpuscular HGB Conc 33.3 g/dl (31.0-36.0); Mean Corpuscular Hemoglobin 31.5 pg (27.0-33.0); Mean Corpuscular Volume 94.4 fL (80.0-98.0); Mean Platelet Volume 9.6 fL (9.4-12.4); Monocytes Absolute Auto 0.4 X10*3/uL (0.1-1.2); Monocytes Percent Auto 6.2 % (2-11); Neutrophils Absolute Auto 2.8 x10*3/uL (2.0-8.3); Neutrophils Percent Auto 42.8 % (45-73); Platelet Count 153 X10*3/uL (160-400); Red Blood Count 4.29 X10*6/uL (4.60-5.80); Red Cell Distribution Width 13.5 % (11.0-16.0); SCAN SMEAR FLAG 1; White Blood Count 6.5 X10*3/uL (4.8-10.8)
[2022-07-08 10:57] LABS: Estimated Average Glucose 123 mg/dL; Hemoglobin A1c % 5.9 %
[2022-07-08 11:13] LABS: SLIDE REVIEW VERIFIED
[2022-07-08 11:33] LABS: Alanine Aminotransferase 19 U/L (0-40); Albumin Level 4.2 g/dL (3.5-5.0); Alkaline Phosphatase 94 U/L (39-117); Anion Gap 10 (12-20); Aspartate Amino Transferase 18 U/L (5-37); Bilirubin Direct 0.2 mg/dL (0.0-0.5); Bilirubin Total 0.6 mg/dL (0.0-1.0); Blood Urea Nitrogen 21 mg/dL (9-16); Calcium 9.2 mg/dL (8.4-10.2); Carbon Dioxide 28 mmol/L (22-29); Chloride 105 mmol/L (96-108); Cholesterol 119 mg/dL; Estimated Glomerular Filt Rate 55; Glucose Random 120 mg/dL (60-115); HDL Cholesterol 28 mg/dL; LDL Cholesterol Calculated 67 mg/dl; Potassium 3.9 mmol/L (3.3-5.1); Sodium 139 mmol/L (135-145); Total Protein 7.3 g/dL (6.5-8.0); Triglycerides 121 mg/dL
[2022-07-08 11:54] LABS: Creatinine Urine 264.03 mg/dL
[2022-07-08 12:06] LABS: Folate 11.5 ng/mL (> or = 4.0); Free T4 (Free Thyroxine) 0.74 ng/dL (0.71-1.85); Prostate Specific Antigen Scr 0.44 ng/mL (<0.05-4.0); Thyroid Stimulating Hormone 5.29 uIU/mL (0.32-4.0); Vitamin B12 365 pg/mL (200-900)
== END 2022-07-08 09:47 | disposition home or self-care (01) ==
LOC: HO.LAB 09:46
PROVIDERS: PCP Internal Medicine; Visit Provider Internal Medicine
DX: Z12.5 Encounter for screening for malignant neoplasm of prostate (principal); E11.65 Type 2 diabetes mellitus with hyperglycemia; R79.89 Other specified abnormal findings of blood chemistry; E78.00 Pure hypercholesterolemia, unspecified
CPT/HCPCS: 36415; 80053; 80061; 82248; 82607; 82746; 83036; 84153; 84439; 84443; 85025

== ENCOUNTER → 2022-09-09 08:58 | Outpatient (BNVA) | payer OTHER, SELFPAY | PROVIDERS: PCP Internal Medicine; Visit Provider Dietitian, Registered | DX: E11.65 Type 2 diabetes mellitus with hyperglycemia (principal); Z71.3 Dietary counseling and surveillance | CPT/HCPCS: 97803 ==

== ENCOUNTER 2022-10-06 08:47 | Outpatient (REF) | payer OTHER, SELFPAY ==
[2022-10-06 09:04] LABS: Basophils Absolute Auto 0.1 X10*3/uL (0.0-0.2); Basophils Percent Auto 0.6 % (0-2); Eosinophils Absolute Auto 2.6 X10*3/uL (0.0-0.4); Eosinophils Percent Auto 32.8 % (0-4); Hematocrit 40.9 % (42.0-52.0); Hemoglobin 13.8 g/dl (14.0-18.0); Imm Gran Abs Auto 0.02 X10*3/uL (0.00-0.03); Imm Gran Pct Auto 0.3 % (0.0-0.4); Lymphocytes Absolute Auto 1.2 X10*3/uL (1.2-4.9); Lymphocytes Percent Auto 15.8 % (20-40); MANUAL DIFF FLAG SCAN; Mean Corpuscular HGB Conc 33.7 g/dl (31.0-36.0); Mean Corpuscular Hemoglobin 31.7 pg (27.0-33.0); Mean Platelet Volume 9.3 fL (9.4-12.4); Monocytes Absolute Auto 0.5 X10*3/uL (0.1-1.2); Monocytes Percent Auto 6.4 % (2-11); Neutrophils Absolute Auto 3.4 x10*3/uL (2.0-8.3); Neutrophils Percent Auto 44.1 % (45-73); Platelet Count 181 X10*3/uL (160-400); Red Blood Count 4.35 X10*6/uL (4.60-5.80); Red Cell Distribution Width 13.2 % (11.0-16.0); SCAN SMEAR FLAG 1; White Blood Count 7.8 X10*3/uL (4.8-10.8)
[2022-10-06 09:40] LABS: Alanine Aminotransferase 17 U/L (0-40); Albumin Level 4.3 g/dL (3.5-5.0); Alkaline Phosphatase 90 U/L (39-117); Anion Gap 10 (12-20); Aspartate Amino Transferase 16 U/L (5-37); Bilirubin Total 0.6 mg/dL (0.0-1.0); Blood Urea Nitrogen 18 mg/dL (9-16); Calcium 9.4 mg/dL (8.4-10.2); Carbon Dioxide 27 mmol/L (22-29); Chloride 108 mmol/L (96-108); Estimated Glomerular Filt Rate > 60; Glucose Random 143 mg/dL (60-115); Potassium 3.9 mmol/L (3.3-5.1); Sodium 141 mmol/L (135-145); Total Protein 7.1 g/dL (6.5-8.0)
[2022-10-06 09:53] LABS: SLIDE REVIEW VERIFIED
[2022-10-06 10:02] LABS: Free T4 (Free Thyroxine) 0.76 ng/dL (0.71-1.85); Thyroid Stimulating Hormone 3.88 uIU/mL (0.32-4.0)
== END 2022-10-06 08:48 | disposition home or self-care (01) ==
LOC: HO.LAB 08:47
PROVIDERS: PCP Internal Medicine; Visit Provider Internal Medicine
DX: R94.6 Abnormal results of thyroid function studies (principal)
CPT/HCPCS: 36415; 80053; 84439; 84443; 85025

== ENCOUNTER → 2022-12-02 11:21 | Outpatient (BNVA) | payer OTHER, SELFPAY | PROVIDERS: PCP Internal Medicine; Visit Provider Registered Nurse Diabetes Educator | DX: E11.65 Type 2 diabetes mellitus with hyperglycemia (principal) | CPT/HCPCS: 99211 ==

== ENCOUNTER 2023-03-04 08:23 | Outpatient (AMB) | payer OTHER, SELFPAY ==
--- NOTE | 2023-03-04 08:54 | A.OFFVIS_ITS ---
Intake Intake Visit Reasons: DM2 Second Helper Required: No Accompanied by: Self / Same As Patient Allergies lisinopril Allergy (Intermediate, Verified 10/15/22 08:30) Angioedema metformin Adverse Reaction (Intermediate, Verified 10/15/22 08:30) abd pain HPI Comprehensive Diabetes Asmnt General Diabetes type type 2 Most Recent Diabetes Results: Cholesterol 119 mg/dL 07/08/22 HDL Cholesterol 28 mg/dL 07/08/22 Triglycerides 121 mg/dL 07/08/22 Creatinine 1.17 mg/dL (0.5-1.4) 10/06/22 Blood Urea Nitrogen 18 mg/dL (9-16) H 10/06/22 Sodium 141 mmol/L (135-145) 10/06/22 Potassium 3.9 mmol/L (3.3-5.1) 10/06/22 Chloride 108 mmol/L (96-108) 10/06/22 Carbon Dioxide 27 mmol/L (22-29) 10/06/22 Calcium 9.4 mg/dL (8.4-10.2) 10/06/22 AST 16 U/L (5-37) 10/06/22 ALT 17 U/L (0-40) 10/06/22 Total Protein 7.1 g/dL (6.5-8.0) 10/06/22 Albumin 4.3 g/dL (3.5-5.0) 10/06/22 [facility] Medical History (Updated 10/15/22 @ 08:44 by Jai Sams MD) On beta cm at home Colon cancer screening Preop exam for internal medicine Encounter for screening colonoscopy Balanitis Hypertension Hypertriglyceridemia GERD (gastroesophageal reflux disease) Asthma Fatty liver Surgical History History of colonoscopy Status post cardiac catheterization Family History Father Myocardial infarction Diabetes Mother Diabetes Skin cancer Social History Housing: Apartment Alcohol intake: current Alcohol intake frequency: holidays/special occasions only Patient Tobacco Use Status: Never used Tobacco e-Cigarette/Vaping Use: Never Used Second Hand Smoke Exposure: No service: No Current occupational status: disabled Current occupational exposures/hazards: No Cognitive needs: No Hearing needs: No Vision needs: Yes Assessment & Plan Assessment & Plan (1) Type 2 diabetes mellitus with hyperglycemia: Comment: A1c at 5.9% on 07/08/22, [facility] Mirela is a bananas and your L[place] these are by on 175 1 7 only 1 time per follow the patient with a p.m. no acute bed and Code(s): E11.65 - Type 2 diabetes mellitus with hyperglycemia Qualifiers: Diabetes mellitus halfway insulin use: without director long term care use Qualified Code(s): E11.65 - Type 2 diabetes mellitus with hyperglycemia Plan: Learning objectives: The patient was provided with verbal and written education on the following topics as outlined below. The patient met all learning objectives and was able to verbalize understanding and provide teach back of education topics discussed . The patient was provided with the opportunity to ask questions and all questions were answered. Patient Assessment Assess patient education level/literacy/barriers Patient questions/concerns, patient is due for next A1c. Has appointment coming in March 2023 with PCP. Patient reports he continues physical activity with rowing machine and treadmill at home. Patient continues on working on increasing blood glucose checks. Reviewed patient's blood glucose meter testing approximately once a day. All glucose readings are within recommended glucose target. Exercise Medical clearance Effect of exercise on blood sugar Start slowly and gradually increase pace/duration over time Goal amount of exercise Checking blood glucose/have a source of carbs with you Medications (If applicable) * Name of medication * Dosing/administration instructions * Mechanism of action * Potential side effects * Potential adverse reaction and appropriate treatment * Review onset, peak, duration Assess for concerns re: insurance coverage, cost, barriers to compliance Hypoglycemia and Hyperglycemia * Signs and symptoms * Causes * Treatment * Preventing hypoglycemia * When to seek medical attention Medical alert bracelet Lifestyle * Work * Travel * Stress management * Problem solving Know your goals * A1C * Blood sugar targets * Blood pressure * Cholesterol/LDL Urine microalbumin Smart Goal Assessment: Patient will test glucose once a day at very times of the day Pt met goal:Pt 50% of the time: New Goal:? Patient will contact art educator if next A1c in March 2023 is above 7% Educational Materials: The patient was provided with the following written educational materials: ADCES7 self-care behaviors REducing Risks handout Patient Response to instructions: Comprehension of Instructions: Fair Readiness to make changes: Action How confident they feel about making changes: Positive Patient Instructions: Incluir actividad diaria regular. ADA recomienda 30 minutos de ejercicio 5 d?as a la semana. P?rdida de peso, hable con el PCP o el cardi?logo antes de comenzar un nuevo plan. Mida el nivel de az?car en la jazmin seg?n las indicaciones; Ayuno y comida m?s octaviano de 2hpp. Observe las tendencias en los resultados. Utilice los resultados y eval?e c?mo los alimentos, la actividad f?randolph y los medicamentos afectan los resultados de az?car en la jazmin. Lleve el gluc?metro o CGM a la pr?xima visita. Conocer los medicamentos para la diabetes, alcala acci?n, los efectos secundarios, la eficacia, la toxicidad, la dosis prescrita, el momento y la frecuencia de administraci?n apropiados, el efecto de las dosis olvidadas y retrasadas y las i nstrucciones de almacenamiento, viaje y seguridad. T?cnicas de resoluci?n de problemas para el seguimiento de episodios de hipo/hiperglucemia y tratamientos. Reducir los comportamientos de reducci?n de riesgos, dejar de fumar, ex?menes regulares de ojos, pies y dentales. Coding Level of Care Code Est Pt Level 1 (97021) Diagnoses Type 2 diabetes mellitus with hyperglycemia, without long-term current use of insulin E11.65 Diabetes mellitus director long term care insulin use: without director long term care use
== END 2023-03-04 08:57 | disposition home or self-care (01) ==
PROVIDERS: PCP Internal Medicine; Visit Provider Registered Nurse Diabetes Educator
DX: E11.65 Type 2 diabetes mellitus with hyperglycemia (principal)

== ENCOUNTER → 2023-03-04 08:23 | Outpatient (BNVA) | payer OTHER, SELFPAY | PROVIDERS: PCP Internal Medicine; Visit Provider Registered Nurse Diabetes Educator | DX: E11.65 Type 2 diabetes mellitus with hyperglycemia (principal) | CPT/HCPCS: 99211 ==

== ENCOUNTER 2023-03-30 08:47 | Outpatient (AMB) | payer OTHER, SELFPAY ==
--- NOTE | 2023-03-30 08:58 | MHC.AMNUTRGE ---
Intake VS Expanded 03/30/23 08:59 Height 5 ft 3 in Weight 167 lb 15.876 oz BMI 29.8 Intake Visit Reasons: T2DM/LVM Allergies lisinopril Allergy (Intermediate, Verified 10/15/22 08:30) Angioedema metformin Adverse Reaction (Intermediate, Verified 10/15/22 08:30) abd pain HPI Nutrition Presentation Details Pt presents for 6 m MNT for T2DM Pt reports keeping physically active 45 - 60 minutes daily and keeping hydrated by having water with meals /snacks, bringing water with him while walking. Weight appears stable, Noted wt at last nutrition appt on 08/2022 at 170lbs today at 168 lbs Pt reports having 3 meals per day Meals consist of B: coffee with 5-6 Ritz crackers or saltine cracker or whole wheat bread L: rice/beans, chicken , fritters, salad, water D: sandw (ham/cheese or chicken sand, green beans), milk fruits /d 0-1 vegetables: 4 servings, 3 times/wk dairy: 2-3 times/wk starches > 15 servings including starchy/non starchy veg protein : poultry, beef, eggs, 12- 16 oz/d fried foods : 2x/wk pastries : 2x/wk mvi:not including Pt reports monitoring at random (pre/post meals ): Per BG download 14 d bg average at 107 mg/dl, bg ranges from 73-143 Most Recent Diabetes Results: Cholesterol 119 mg/dL 07/08/22 HDL Cholesterol 28 mg/dL 07/08/22 Triglycerides 121 mg/dL 07/08/22 Creatinine 1.17 mg/dL (0.5-1.4) 10/06/22 Blood Urea Nitrogen 18 mg/dL (9-16) H 10/06/22 Sodium 141 mmol/L (135-145) 10/06/22 Potassium 3.9 mmol/L (3.3-5.1) 10/06/22 Chloride 108 mmol/L (96-108) 10/06/22 Carbon Dioxide 27 mmol/L (22-29) 10/06/22 Calcium 9.4 mg/dL (8.4-10.2) 10/06/22 AST 16 U/L (5-37) 10/06/22 ALT 17 U/L (0-40) 10/06/22 Total Protein 7.1 g/dL (6.5-8.0) 10/06/22 Albumin 4.3 g/dL (3.5-5.0) 10/06/22 [facility] Medical History (Updated 03/30/23 @ 09:[address], LDN) On beta cm at home Colon cancer screening Preop exam for internal medicine Encounter for screening colonoscopy Balanitis Hypertension Hypertriglyceridemia GERD (gastroesophageal reflux disease) Asthma Fatty liver Surgical History History of colonoscopy Status post cardiac catheterization Family History Father Myocardial infarction Diabetes Mother Diabetes Skin cancer Social History Housing: Apartment Alcohol intake: current Alcohol intake frequency: holidays/special occasions only Patient Tobacco Use Status: Never used Tobacco e-Cigarette/Vaping Use: Never Used Second Hand Smoke Exposure: No service: No Current occupational status: disabled Current occupational exposures/hazards: No Cognitive needs: No Hearing needs: No Vision needs: Yes Assessment & Plan Assessment & Plan (1) Type 2 diabetes mellitus with hyperglycemia: Code(s): E11.65 - Type 2 diabetes mellitus with hyperglycemia Qualifiers: Diabetes mellitus usp insulin use: without termite exterminator helper use Qualified Code(s): E11.65 - Type 2 diabetes mellitus with hyperglycemia Plan Educate Pt on [id number] barb ADA meal plan ? Used wt : 76 kg Est kcal as per MSJ: 1999 - = 1750 (40% carb, 30% fat/prot) Est fluid needs: 1900 ml/d (25 ml/kg bw) Rec fiber: increase to 8-10 g per day and gradually increase to 35 g/d as tolerated Rec Na: < 1500 mg /d Educate patient on: (R= Reviewed, V = verbalizes understanding N/R= Needs review N/A= not applicable) Food sources of carbohydrates and serving adequate serving sizes : R , V Difference between complex carbohydrates and simple carbohydrates, role of fiber: R V Differences between fats (MUFA/PUFA/saturated fats, trans fats) and food sources of various fats: R Food sources of sodium and salt and healthy modifications for heart health and kidney health: R, V Vitamins and minerals: R How to interpret food labels: R - , Healthy Plate method concept: R , v Physical activity: benefits and precaution: R Patient Instructions: Include iron rich foods in your diet along with food source of vitamin C add a 1/2 cup of spinach to your salad 3 times a week Have oatmeal/cream of wheat alternating crackers with 1-2 boiled eggs at breakfast Monitor your blood sugar as prescribed by your doctor , alternate between fasting and 2 hours after a meal , contact your doctor if blood sugar are below or above recommended level (fasting blood sugar goal 80-130 and 2 hours after a meal 80-180) call for nutrition questions prior to next followup Coding Level of Care Code Nutr Indiv Subseq (31790) Diagnoses Type 2 diabetes mellitus with hyperglycemia, without long-term current use of insulin E11.65 Diabetes mellitus usp insulin use: without termite exterminator helper use Time Spent (min) 30
[2023-03-30 08:59] VITALS: BMI 29.8
== END 2023-03-30 09:28 | disposition home or self-care (01) ==
PROVIDERS: PCP Internal Medicine; Visit Provider Dietitian, Registered
DX: E11.65 Type 2 diabetes mellitus with hyperglycemia (principal)

== ENCOUNTER → 2023-03-30 08:47 | Outpatient (BNVA) | payer OTHER, SELFPAY | PROVIDERS: Visit Provider Dietitian, Registered | DX: E11.65 Type 2 diabetes mellitus with hyperglycemia (principal); Z71.3 Dietary counseling and surveillance | CPT/HCPCS: 97803 ==

== ENCOUNTER 2023-04-12 13:47 | Outpatient (AMB) | payer OTHER, SELFPAY ==
[2023-04-12 13:48] VITALS: BP 118/86; PULSE 60; O2SAT 97; BMI 29.2
--- NOTE | 2023-04-12 13:48 | AM.OFFVISMDC ---
Intake Vital Signs 04/12/23 13:48 Height 5 ft 3 in Weight 165 lb BMI 29.2 BP 118/86 Blood Pressure Location Lt brachial Position Sitting Pulse 60 Pulse Source Pulse Oximeter Temp Source Skin Pulse Oximetry (%) 97 Oxygen Delivery Method Room Air Intake Visit Reasons: [facility] G0439 Discuss/Bill ACP Intake Note: Patient is here for an Annual Wellness Visit. Block Saw Operator Required: No Allergies lisinopril Allergy (Intermediate, Verified 04/12/23 14:03) Angioedema metformin Adverse Reaction (Intermediate, Verified 04/12/23 14:03) abd pain Medication List - Last Reconciled 04/12/23 by LANIE Russo albuterol sulfate 90 mcg/actuation 2 puffs inhalation Q6H PRN aspirin (Adult Low Dose Aspirin) 81 mg PO DAILY blood sugar diagnostic (FreeStyle Lite Strips) As directed check the BS QD blood-glucose meter (FreeStyle Lite Meter kit) As directed clotrimazole 1% 1 appl topical BID 4 weeks empagliflozin (Jardiance) 10 mg PO DAILY 30 days fluticasone furoate-vilanterol 200-25 mcg/dose (Breo Ellipta) 1 inh inhalation DAILY lancets (FreeStyle Lancets) As directed check BS QD methylcellulose (laxative) (Citrucel) 500 mg PO BID metoprolol succinate ER 25 mg PO DAILY 90 days rosuvastatin 40 mg PO DAILY zafirlukast 1 tab PO BID HPI V G0439 Discuss/Bill ACP HPI Details Patient is a 62-year-old male who presents today for subsequent wellness visit. Patient of Dr. Sams. Patient is up-to-date with his health preventative screenings and immunizations. PSA 0.44 06/2022. Colonoscopy 04/[address] Bird and repeat in 1-2 years due to fair prep. [place] of care was reviewed with the patient and he was provided with a screening schedule. End of life planning was discussed with the patient he was provided with healthcare proxy and MOLST forms. [facility] Medical History (Updated 04/12/23 @ 14:24 by LANIE Russo) TSH elevation Obesity (BMI 30-39.9) On beta cm at home Colon cancer screening Preop exam for internal medicine Encounter for screening colonoscopy Balanitis Hypertension Hypertriglyceridemia GERD (gastroesophageal reflux disease) Asthma Fatty liver Surgical History History of colonoscopy Status post cardiac catheterization Family History Father Myocardial infarction Diabetes Mother Diabetes Skin cancer Social History Housing: Apartment Alcohol intake: current Alcohol intake frequency: holidays/special occasions only Patient Tobacco Use Status: Never used Tobacco e-Cigarette/Vaping Use: Never Used Second Hand Smoke Exposure: No service: No Current occupational status: disabled Current occupational exposures/hazards: No Cognitive needs: No Hearing needs: No Vision needs: Yes Questionnaire Medicare Wellness Checkup What [age] 65-68 What gender do you identify with?: male During the past 4 weeks, how much have you been bothered by emotional problems such as feeling anxious, depressed, irritable, sad or downhearted, and blue?: not at all During the past 4 weeks, has your physical & emotional health limited your social activities with family, friends, neighbors, or groups?: not at all During the past 4 weeks, how much bodily pain have you generally had?: no pain During the past 4 weeks, was someone available to help you if you needed & wanted help?: no, not at all During the past 4 weeks, what was the hardest physical activity you could do for at least 2 minutes?: very heavy Can you get to places out of walking distance without help? (For eg., can you travel alone on buses, taxis or drive your car?): Yes Can you go shopping for groceries or clothes without someone's help?: Yes Can you prepare your own meals?: Yes Can you do your housework without help?: Yes Because of any health problems, do you need the help of another person with your personal care needs such as eating, bathing, dressing or getting around the house?: No Can you handle your own money without help?: Yes During the past 4 weeks, how would you rate your health in general?: excellent During the past 4 weeks how have things been going for you?: very well; could hardly better Are you having difficulties driving your car?: no Do you always fasten your seat belt when you are in a car?: yes, usually During past 4 weeks, have you been bothered by the following: never: Falling or dizzy when standing up, Sexual problems?, Trouble eating well?, Teeth or denture problems?, Problems using the telephone? and Tiredness or fatigue? Have you fallen 2 or more times in the past year?: No Are you afraid of falling?: No Are you a smoker?: no During the past 4 weeks, how many drinks of wine, beer, or other alcoholic beverages did you have?: 1 drink or less per week Do you exercise for about 20 minutes 3 or more times a week?: yes, most of the time Have you been given information to help with the following?: no: Hazards in your house that might hurt you? and no: Keeping track of your medications? How often do you have trouble taking medicines the way you have been told to take them?: I always take medicine as prescribed How confident are you that you can control & manage most of your health problems?: I do not have any health problems What is your race?: or origin or descent Mini Mental State Exam (MMSE) Orientation What is the (year) (season) (date) (day) (month)?: year, season, date, day and month Score Score: 5 Activity of Daily Living Bathing - sponge bath, tub bath or shower: receives no assistance (gets in/out by self, if usual bathing means Dressing - getting clothes from closets & drawers, including inner/outer garments & fasteners.: gets clothes & gets completely dressed without help Toileting - going to the 'toilet room' for urine/bowel elimination & cleaning self/arranging clothes: goes to toilet room, cleans self, arranges clothes without help Transfer: moves in & out of bed and chair without help (may use support object) Continence: controls urination/bowel movements completely by self Feeding: feeds self without help Total Score: 0 Information obtained from: patient Using telephone: independent Traveling: independent Shopping: independent Preparing meals: independent Housework: independent Taking medicine: independent Managing money: independent PHQ-9 Over the last 2 weeks, how often have you been bothered by any of the following problems? 1. Little interest or pleasure in doing things: not at all 2. Feeling down, depressed, or hopeless: not at all 3. Trouble falling or staying asleep, or sleeping too much: not at all 4. Feeling tired or having little energy: not at all 5. Poor appetite or overeating: not at all 6. Feeling bad about yourself - or that you are a failure or have let yourself or your family down: not at all 7. Trouble concentrating on things, such as reading the newspaper or watching television: not at all 8. Moving or speaking so slowly that other people could have noticed. Or the opposite - being so fidgety or restless that you have been moving around a lot more than usual: not at all 9. Thoughts that you would be better off or of hurting yourself in some way: not at all Total score: 0 Depression Screening Interpretation: Negative Depression Screening Done: Yes 51916 - PHQ-9 Billing: Yes Source: Developed by Drs. Haseeb Liang, Mariel Dumont, Almas Mccloud and colleagues, with an educational lora from [employer]. Physical Exam Vital Signs: Last Vital Signs Pulse 60 04/12/23 13:48 BP 118/86 04/12/23 13:48 Pulse Ox 97 04/12/23 13:48 Oxygen Delivery Method Room Air 04/12/23 13:48 BMI result Body Mass Index 29.2 Const General: cooperative and no acute distress Orientation/consciousness: patient oriented x3 HEENT Other: Whisper test: pass Neuro Other: Balance: Normal Get up and walk: able to [place]: negative Tandem gait: able to General: patient oriented x3 Office Procedures Flu Questionnaire Does the patient have a severe egg allergy?: No Does the patient have severe life threatening allergies?: No Does the patient have a fever or illness today?: No Has the patient ever had Guillain-[place] Syndrome?: No Has the patient ever had any past reaction to a flu shot?: No Results AMB Hemoglobin A1c AMB Hemoglobin A1c 6.3 % Last Edit by BONNIE Neal on 04/12/23 14:05 Immunizations flu vacc [id number] 6mos up(PF) 60 mcg(15 mcgx4)/0.5 mL IM syringe Performing Provider: LANIE Russo [facility] Administered by: BONNIE Neal on 04/12/23 14:05 Dose Route Admin Location Dispensed Lot Number Expiration Date NDC Therapeutic Recreation Leader 0.5 mL IM Left Deltoid 0.5 mL [id number] 12/25/23 [id number] [employer] VIS Given Date VIS Provided VIS Publication Date 04/12/23 Single Vaccine 21 Eligibility Eligibility Date Funding Source Not [facility] Eligible 04/12/23 Private Assessment & Plan Assessment & Plan (1) Type 2 diabetes mellitus with hyperglycemia: Code(s): E11.65 - Type 2 diabetes mellitus with hyperglycemia Qualifiers: Diabetes mellitus group home insulin use: without terminal worker use Qualified Code(s): E11.65 - Type 2 diabetes mellitus with hyperglycemia Plan: A1c 6.3 today. Continue Jardiance. Reinforced low-carbohydrate diet. (2) Asthma: Comment: Dr. Pendleton Pulmonogy Code(s): J45.909 - Unspecified asthma, uncomplicated Qualifiers: Asthma severity: mild Asthma persistence: intermittent Asthma complication type: uncomplicated Qualified Code(s): J45.20 - Mild intermittent asthma, uncomplicated Plan: Stable. Continue to follow-up with pulmonology as scheduled. Continue current treatment. (3) CAD (coronary artery disease): Comment: Ancelmo Murcia- [phone] [facility] Code(s): I25.10 - Atherosclerotic heart disease of [place] coronary artery without angina pectoris Qualifiers: Coronary Disease-Associated Artery/Lesion type: [place] artery [place] vs. transplanted heart: [place] heart Associated angina: with stable angina Qualified Code(s): I25.118 - Atherosclerotic heart disease of [place] coronary artery with other forms of angina pectoris Plan: Continue rosuvastatin. (4) CVA (cerebral vascular accident): Comment: June 2020 Code(s): I63.9 - Cerebral infarction, unspecified Qualifiers: CVA mechanism: other Qualified Code(s): I63.89 - Other cerebral infarction Plan: Continue aspirin. (5) Hypercholesterolemia: Code(s): E78.00 - Pure hypercholesterolemia, unspecified Plan: Continue current treatment. Low-cholesterol diet (6) Hypertension: Code(s): I10 - Essential (primary) hypertension Qualifiers: Hypertension type: essential hypertension Qualified Code(s): I10 - Essential (primary) hypertension Plan: Continue current treatment. Reinforced low-sodium diet. (7) Annual physical exam: Code(s): Z00.00 - Encounter for general adult medical examination without abnormal findings Plan Patient reports that his glucometer does not show date or time anymore, new glucometer sent, patient checks blood sugars daily. Orders: Orders AMB Hemoglobin A1c Today E11.65 - Type 2 diabetes mellitus with hyperglycemia Influenza [id number] Immunization Today Z23 - Encounter for immunization Medications: Refilled blood-glucose meter (FreeStyle Lite Meter kit) As directed 1 ea 0RF E11.65 - Type 2 diabetes mellitus with hyperglycemia Quality Reporting (2019) Depression/Bipolar (159/160/161/177) PHQ-9: Total score: 0 Coding Level of Care Code Medicare Subsequent (G0439) Diagnoses Type 2 diabetes mellitus with hyperglycemia, without long-term current use of insulin E11.65 Diabetes mellitus group home insulin use: without terminal worker use Mild intermittent asthma without complication J45.20 Asthma severity: mild Asthma persistence: intermittent Asthma complication type: uncomplicated Coronary artery disease of [place] artery of [place] heart with stable angina pectoris I25.118 Coronary Disease-Associated Artery/Lesion type: [place] artery [place] vs. transplanted heart: [place] heart Associated angina: with stable angina Cerebrovascular accident (CVA) due to other mechanism I63.89 CVA mechanism: other Hypercholesterolemia E78.00 Essential hypertension I10 Hypertension type: essential hypertension Annual physical exam Z00.00 CPT Codes Advance Care Planning - Time spent: 1-15 minutes, not on file ([id number]) Advance Care Planning Date of discussion: 04/12/23 Who was present: pt and jogger operator Forms completed: None Time spent: 1-15 minutes, not on file Actual minutes spent: 3 Did not discuss due to Cultural/Spiritual beliefs: No
== END 2023-04-12 14:19 | disposition home or self-care (01) ==
PROVIDERS: Visit Provider Nurse Practitioner Family
DX: E11.65 Type 2 diabetes mellitus with hyperglycemia (principal); J45.20 Mild intermittent asthma, uncomplicated; I25.118 Atherosclerotic heart disease of native coronary artery with other forms of angina pectoris; I63.89 Other cerebral infarction; E78.00 Pure hypercholesterolemia, unspecified; I10 Essential (primary) hypertension; Z00.00 Encounter for general adult medical examination without abnormal findings; Z23 Encounter for immunization
CPT/HCPCS: 1124F; 83036; 90471; 90686; G0439

== ENCOUNTER 2023-04-19 08:14 | Outpatient (AMB) | payer OTHER, SELFPAY ==
[2023-04-19 08:33] VITALS: BP 112/68; PULSE 81; O2SAT 97; BMI 29.2
--- NOTE | 2023-04-19 08:33 | MHC.PC.OV ---
Vital Signs 04/19/23 08:33 Height 5 ft 3 in Weight 165 lb BMI 29.2 BP 112/68 Blood Pressure Location Lt brachial Position Sitting Pulse 81 Pulse Source Pulse Oximeter Pulse Oximetry (%) 97 Oxygen Delivery Method Room Air Intake Visit Reasons: HTN, DM Ointment Mill Tender Required: No Allergies lisinopril Allergy (Intermediate, Verified 04/19/23 08:34) Angioedema metformin Adverse Reaction (Intermediate, Verified 04/19/23 08:34) abd pain Medication List - Last Reconciled 04/19/23 by Jai Sams MD albuterol sulfate 90 mcg/actuation 2 puffs inhalation Q6H PRN aspirin (Adult Low Dose Aspirin) 81 mg PO DAILY blood sugar diagnostic (OneTouch Ultra Test strips) As directed check the blood sugar once a day blood sugar diagnostic (FreeStyle Lite Strips) As directed check the BS QD blood-glucose meter (FreeStyle Lite Meter kit) As directed blood-glucose meter (OneTouch Ultra2 Meter) As directed check blood sugar once a day clotrimazole 1% 1 appl topical BID 4 weeks [DEHUMIDIFIER/VAPORIZER As directed] empagliflozin (Jardiance) 10 mg PO DAILY 30 days fluticasone furoate-vilanterol 200-25 mcg/dose (Breo Ellipta) 1 inh inhalation DAILY lancets ([employer] GroupTouch UltraSoft 2 Lancet) As directed check blood sugar once a day lancets (FreeStyle Lancets) As directed check BS QD methylcellulose (laxative) (Citrucel) 500 mg PO BID metoprolol succinate ER 25 mg PO DAILY 90 days rosuvastatin 40 mg PO DAILY zafirlukast 1 tab PO BID Tobacco use date assessed: 04/19/23 Dental Screening Dental Screen Date: 04/19/23 Did you have a dental visit in the last 12 months?: Yes Did you have a dental problem in the last 6 months where you did not have access to dental care?: No Was dental information given to patient?: Patient has dentist HPI HTN, DM HPI Details 62-year-old overweight male with coronary artery disease asthma hypertension hypercholesterolemia and diabetes mellitus coming in for follow-up. Last seen in September 2022. Patient is up-to-date with colonoscopy April 2022 and has been advised to repeat in 1-2 years. Patient is here for follow-up. Patient was just recently seen by the nurse practitioner for it and well visit. Last cholesterol blood work was done June 2022. cough , hoarse, and throat itchy 3 days no fevers, , noproductve, no diarrhea. PATIENT HAD FLU VACCINE ON THE March. Patient has been taking TheraFlu and has been advised to stop it most probably due to the phenylephrine. Discussed about sore throat can you Cepacol, for productive cough can use Mucinex, for nonproductive /dry cough use Delsym otherwise diabetes under control continue with Jardiance blood pressure under control and cholesterol needs retesting [facility] Medical History (Updated 04/19/23 @ 08:55 by Jai Sams MD) TSH elevation Obesity (BMI 30-39.9) On beta cm at home Colon cancer screening Preop exam for internal medicine Encounter for screening colonoscopy Balanitis Hypertension Hypertriglyceridemia GERD (gastroesophageal reflux disease) Asthma Fatty liver Surgical History History of colonoscopy Status post cardiac catheterization Family History Father Myocardial infarction Diabetes Mother Diabetes Skin cancer Social History Housing: Apartment Alcohol intake: current Alcohol intake frequency: holidays/special occasions only Patient Tobacco Use Status: Never used Tobacco e-Cigarette/Vaping Use: Never Used Second Hand Smoke Exposure: No service: No Current occupational status: disabled Current occupational exposures/hazards: No Cognitive needs: No Hearing needs: No Vision needs: Yes Questionnaire Thrive Questionnaire Date Thrive assessed: 07/09/22 AUDIT C Alcohol Use Questionnaire (AUDIT-C) 1. How often do you have a drink containing alcohol?: Never 3. How often do you have six or more drinks on one occasion?: Never Total Score: 0 KENY-7 AMB Questionnaire KENY-7 Date KENY - 7 assessed: 07/09/22 Source: Developed by Drs. Haseeb Liang, Mariel Dumont, Almas Mccloud and colleagues, with an educational lora from [employer]. Physical exam (Primary Care) Vital Signs: Last Vital Signs Pulse 81 04/19/23 08:33 BP 112/68 04/19/23 08:33 Pulse Ox 97 04/19/23 08:33 Oxygen Delivery Method Room Air 04/19/23 08:33 BMI result Body Mass Index 29.2 Tobacco/Smoking Status: Tobacco use Status Tobacco use date assessed 04/19/23 04/19/23 08:39 Patient Tobacco Use Status Never used Tobacco 04/19/23 08:34 e-Cigarette/Vaping Use Never Used 04/19/23 08:34 Thrive Assessment: Date of Thrive Assessment Date Thrive assessed 07/09/22 04/19/23 08:34 Const General: alert; No acute distress Eyes Conjunctivae: conjunctivae normal Resp Auscultation: clear to auscultation bilaterally Cardio Rate: regular rate Rhythm: regular rhythm GI Inspection: Yes normal to inspection Extrem General: Yes normal to inspection and No edema Assessment and Plan Assessment & Plan (1) Type 2 diabetes mellitus with hyperglycemia: Code(s): E11.65 - Type 2 diabetes mellitus with hyperglycemia Qualifiers: Diabetes mellitus usp insulin use: without usp use Qualified Code(s): E11.65 - Type 2 diabetes mellitus with hyperglycemia Plan: Decrease the amount of carbohydrate intake, pasta, bread, rice and potatoes are all sugar and that is aside from all the sweet stuff, remember that fruits are good but they are Sweet also. Hemoglobin A1c goal of less than 6.5. Patient is on Jardiance 10 mg once a day (2) CAD (coronary artery disease): Comment: Ancelmo Murcia- [phone] [place] [facility] Code(s): I25.10 - Atherosclerotic heart disease of [place] coronary artery without angina pectoris Qualifiers: Coronary Disease-Associated Artery/Lesion type: [place] artery [place] vs. transplanted heart: [place] heart Associated angina: with stable angina Qualified Code(s): I25.118 - Atherosclerotic heart disease of [place] coronary artery with other forms of angina pectoris Plan: Control the cholesterol, weight, blood pressure, diabetes patient continues on aspirin 81 mg once a day (3) CVA (cerebral vascular accident): Comment: June 2020 Code(s): I63.9 - Cerebral infarction, unspecified Qualifiers: CVA mechanism: other Qualified Code(s): I63.89 - Other cerebral infarction Plan: Continue to take aspirin once a day and controlled blood pressure, cholesterol and diabetes (4) Hypercholesterolemia: Code(s): E78.00 - Pure hypercholesterolemia, unspecified Plan: Avoid fried foods, chicken skin, eggs, butter margarine, pastries and meat. Be it pork or beef they have a lot of cholesterol LDL goal of less than 70 and triglyceride of less than 150. Patient on rosuvastatin 40 mg once a day. June 2022 last blood work will request for blood work in 3 months (5) Hypertension: Code(s): I10 - Essential (primary) hypertension Qualifiers: Hypertension type: essential hypertension Qualified Code(s): I10 - Essential (primary) hypertension Plan: Continue with blood pressure medication. Decrease salt intake and exercise patient is on metoprolol 25 mg once a day (6) Asthma: Comment: Dr. Pendleton Pulmonogy Code(s): J45.909 - Unspecified asthma, uncomplicated Qualifiers: Asthma severity: mild Asthma persistence: intermittent Asthma complication type: uncomplicated Qualified Code(s): J45.20 - Mild intermittent asthma, uncomplicated Plan: Continue with inhaler as knee (7) Laryngitis: Code(s): J04.0 - Acute laryngitis Plan: Discussed that this is viral infection and advised to increase oral fluids, for productive cough to use Mucinex, for sore throat can you Cepacol lozenges, for dry cough can use Delsym Orders: Orders Complete Blood Count Auto Diff 3 Months E11.65 - Type 2 diabetes mellitus with hyperglycemia Comprehensive Met. Panel 3 Months E11.65 - Type 2 diabetes mellitus with hyperglycemia Microalbumin, Random (w Creat) 3 Months E11.65 - Type 2 diabetes mellitus with hyperglycemia Creatinine Urine 3 Months E11.65 - Type 2 diabetes mellitus with hyperglycemia Ferritin 3 Months E11.65 - Type 2 diabetes mellitus with hyperglycemia Reticulocyte Count 3 Months E11.65 - Type 2 diabetes mellitus with hyperglycemia IRON PROFILE 3 Months E11.65 - Type 2 diabetes mellitus with hyperglycemia Lipid Panel 3 Months E11.65 - Type 2 diabetes mellitus with hyperglycemia, E78.00 - Pure hypercholesterolemia, unspecified Thyroid Stimulating Hormone 3 Months E11.65 - Type 2 diabetes mellitus with hyperglycemia Vitamin B12 and Folate 3 Months E11.65 - Type 2 diabetes mellitus with hyperglycemia Prostate Specific Antigen Scr 3 Months E11.65 - Type 2 diabetes mellitus with hyperglycemia Free T4 (Free Thyroxine) 3 Months E11.65 - Type 2 diabetes mellitus with hyperglycemia Hemoglobin A1c 3 Months E11.65 - Type 2 diabetes mellitus with hyperglycemia Medications: New [DEHUMIDIFIER/VAPORIZER] As directed 1 ea 0RF J04.0 - Acute laryngitis Coding Level of Care Code Est Pt Level 4 (21266) Diagnoses Type 2 diabetes mellitus with hyperglycemia, without long-term current use of insulin E11.65 Diabetes mellitus intermediate frame tender insulin use: without usp use Coronary artery disease of [place] artery of [place] heart with stable angina pectoris I25.118 Coronary Disease-Associated Artery/Lesion type: [place] artery [place] vs. transplanted heart: [place] heart Associated angina: with stable angina Cerebrovascular accident (CVA) due to other mechanism I63.89 CVA mechanism: other Hypercholesterolemia E78.00 Essential hypertension I10 Hypertension type: essential hypertension Mild intermittent asthma without complication J45.20 Asthma severity: mild Asthma persistence: intermittent Asthma complication type: uncomplicated Laryngitis J04.0
== END 2023-04-19 09:05 | disposition home or self-care (01) ==
PROVIDERS: Visit Provider Internal Medicine
DX: E11.65 Type 2 diabetes mellitus with hyperglycemia (principal); I25.118 Atherosclerotic heart disease of native coronary artery with other forms of angina pectoris; I63.89 Other cerebral infarction; E78.00 Pure hypercholesterolemia, unspecified; I10 Essential (primary) hypertension; J45.20 Mild intermittent asthma, uncomplicated; J04.0 Acute laryngitis
CPT/HCPCS: 99214

== ENCOUNTER 2023-07-25 15:55 | Outpatient (AMB) | payer OTHER, SELFPAY ==
[2023-07-25 15:56] VITALS: BP 118/78; PULSE 72; O2SAT 98; BMI 29.1
--- NOTE | 2023-07-25 15:56 | MHC.PC.OV ---
Vital Signs 07/25/23 15:56 Height 5 ft 3 in Weight 164 lb 0.6 oz BMI 29.1 BP 118/78 Blood Pressure Location Lt brachial Position Sitting Pulse 72 Pulse Source Pulse Oximeter Pulse Oximetry (%) 98 Oxygen Delivery Method Room Air Intake Visit Reasons: Annual Exam Intake Note: Patient is here today for a physical. Team Primary Care Physician Required: Yes Team Primary Care Physician Language: Omani Allergies lisinopril Allergy (Intermediate, Verified 07/25/23 16:13) Angioedema metformin Adverse Reaction (Intermediate, Verified 07/25/23 16:13) abd pain Medication List - Last Reconciled 07/25/23 by Jai Sams MD albuterol sulfate 90 mcg/actuation 2 puffs inhalation Q6H PRN aspirin (Adult Low Dose Aspirin) 81 mg PO DAILY blood sugar diagnostic (OneTouch Ultra Test strips) As directed check the blood sugar once a day blood sugar diagnostic (FreeStyle Lite Strips) As directed check the BS QD blood-glucose meter (FreeStyle Lite Meter kit) As directed blood-glucose meter (OneTouch Ultra2 Meter) As directed check blood sugar once a day clotrimazole 1% 1 appl topical BID 4 weeks [DEHUMIDIFIER/VAPORIZER As directed] empagliflozin (Jardiance) 10 mg PO DAILY 30 days fluticasone furoate-vilanterol 200-25 mcg/dose (Breo Ellipta) 1 inh inhalation DAILY lancets (OneTouch UltraSoft 2 Lancet) As directed check blood sugar once a day lancets (FreeStyle Lancets) As directed check BS QD methylcellulose (laxative) (Citrucel) 500 mg PO BID metoprolol succinate ER 25 mg PO DAILY 90 days rosuvastatin 40 mg PO DAILY zafirlukast 1 tab PO BID Tobacco use date assessed: 07/25/23 Fall risk assessment: No Falls in past year Last assessed Fall Risk: 07/25/23 Dental Screening Dental Screen Date: 07/25/23 Did you have a dental visit in the last 12 months?: No Did you have a dental problem in the last 6 months where you did not have access to dental care?: No HPI Annual Exam HPI Details 63-year-old overweight male with controlled diabetes mellitus coronary artery disease history of CVA hypercholesterolemia hypertension asthma last seen in March 2023. Patient is here for physical exam. Colonoscopy April 2022 and has been advised repeat testing this year. Review of the notes patient had the COVID vaccine as well as the RSV done. [facility] Medical History (Updated 07/25/23 @ 16:47 by Jai Sams MD) Colon cancer screening TSH elevation Obesity (BMI 30-39.9) On beta cm at home Preop exam for internal medicine Encounter for screening colonoscopy Balanitis Hypertension Hypertriglyceridemia GERD (gastroesophageal reflux disease) Asthma Fatty liver Surgical History History of colonoscopy Status post cardiac catheterization Family History Father Myocardial infarction Diabetes Mother Diabetes Skin cancer Social History (Updated 07/25/23 @ 16:44 by Jai Sams MD) Housing: Apartment Alcohol intake: current Alcohol intake frequency: holidays/special occasions only Comment: once q 2 week3-4 drinks Patient Tobacco Use Status: Never used Tobacco e-Cigarette/Vaping Use: Never Used Second Hand Smoke Exposure: No service: No Current occupational status: disabled Current occupational exposures/hazards: No Cognitive needs: No Hearing needs: No Vision needs: Yes Questionnaire PHQ-9 Over the last 2 weeks, how often have you been bothered by any of the following problems? 1. Little interest or pleasure in doing things: not at all 2. Feeling down, depressed, or hopeless: not at all 3. Trouble falling or staying asleep, or sleeping too much: not at all 4. Feeling tired or having little energy: not at all 5. Poor appetite or overeating: not at all 6. Feeling bad about yourself - or that you are a failure or have let yourself or your family down: not at all 7. Trouble concentrating on things, such as reading the newspaper or watching television: not at all 8. Moving or speaking so slowly that other people could have noticed. Or the opposite - being so fidgety or restless that you have been moving around a lot more than usual: not at all 9. Thoughts that you would be better off or of hurting yourself in some way: not at all Total score: 0 Depression Screening Interpretation: Negative Depression Screening Done: Yes 13882 - PHQ-9 Billing: Yes Source: Developed by Drs. Haseeb Liang, Mariel Dumont, Almas Mccloud and colleagues, with an educational lora from [employer]. Thrive Questionnaire Date Thrive assessed: 07/25/23 AUDIT C Alcohol Use Questionnaire (AUDIT-C) 1. How often do you have a drink containing alcohol?: Never 3. How often do you have six or more drinks on one occasion?: Never Total Score: 0 KENY-7 AMB Questionnaire KENY-7 Date KENY - 7 assessed: 07/25/23 Source: Developed by Drs. Haseeb Liang, Mariel Dumont, Almas Mccloud and colleagues, with an educational lora from [employer]. Review of Systems Const Denies poor appetite and Denies weakness Eyes Denies no additional complaints ENT Reports Normal hearing present, Denies dizziness, Denies nasal congestion, Denies tinnitus and Denies sore throat Card Denies chest pain, Denies syncope, Denies rapid heart rate and Denies dyspnea Resp Denies cough and Denies dyspnea GI Denies change in stool character, Reports constipation, Denies diarrhea, Denies nausea and Denies vomiting Denies dysuria and Denies urinary frequency Neuro Reports Normal hearing present, Denies confusion, Denies dizziness, Denies syncope and Denies weakness Psych Denies confusion Physical exam (Primary Care) Vital Signs: Last Vital Signs Pulse 72 07/25/23 15:56 BP 118/78 07/25/23 15:56 Pulse Ox 98 07/25/23 15:56 Oxygen Delivery Method Room Air 07/25/23 15:56 BMI result Body Mass Index 29.1 Tobacco/Smoking Status: Tobacco use Status Tobacco use date assessed 07/25/23 07/25/23 15:58 Patient Tobacco Use Status Never used Tobacco 07/25/23 15:56 e-Cigarette/Vaping Use Never Used 07/25/23 15:56 PHQ-9: PHQ-9 Score PHQ-9: Total score 0 07/25/23 16:20 Depression Screening Interpretation: Negative Thrive Assessment: Date of Thrive Assessment Date Thrive assessed 07/25/23 07/25/23 15:58 Const General: No confusion Orientation/consciousness: No confusion HENMT Head: Yes normocephalic Ears: external ears normal and TM's normal bilaterally Face and sinus: Yes normal facial exam Mouth: moist mucous membranes Throat: Yes tonsils normal Eyes Conjunctivae: conjunctivae normal Pupils: Equal, round and reactive pupils present and Pupil accommodation reflex normal Direct Ophthalmoscopy: normal light reflex Neck Neck: No lymphadenopathy Thyroid: Thyroid normal Chest Chest palpation & inspection: normal inspection of the chest Resp Effort & Inspection: normal respiratory effort and no audible wheezes Auscultation: clear to auscultation bilaterally, no crackles, no wheezes and lung sounds not diminished Cardio Rate: regular rate Rhythm: regular rhythm Peripheral pulses: radial pulses present and dorsalis pedis present GI Other: colon test later this year Palpation (GI): no masses Auscultation: normal bowel sounds and normoactive bowel sounds Rectal Exam - Male: Yes deferred Male General Exam: Yes normal external exam Skin General skin exam: no rashes or lesions noted Rashes: no rashes Neuro General: No confusion Cranial nerves: Yes Equal, round and reactive pupils present and Yes Normal hearing present Cognition (Neuro): normal cognition Gait exam (Neuro): Normal gait present Motor exam (neuro): 5/5 motor strength present throughout Deep tendon reflexes (DTR's): Right brachioradialis reflex intensity grade: 2+, Left brachioradialis reflex intensity grade: 2+, Right patellar reflex intensity grade: 2+ and Left patellar reflex intensity grade: 2+ Extrem Other: pedal pulses and pin prick normal General: No edema Results AMB Hemoglobin A1c AMB Hemoglobin A1c 6.5 % Last Edit by BONNIE Neal on 07/25/23 16:21 Results Reviewed Results Reviewed: Laboratory Last Values Hgb A1c (Clinic) 6.5 % (4.0-6.0) H 07/25/23 14:47 Assessment and Plan Assessment & Plan (1) Annual physical exam: Code(s): Z00.00 - Encounter for general adult medical examination without abnormal findings (2) Type 2 diabetes mellitus with hyperglycemia: Comment: [facility] 02/2023 Code(s): E11.65 - Type 2 diabetes mellitus with hyperglycemia Qualifiers: Diabetes mellitus assisted insulin use: without director long term care use Qualified Code(s): E11.65 - Type 2 diabetes mellitus with hyperglycemia Plan: Decrease the amount of carbohydrate intake, pasta, bread, rice and potatoes are all sugar and that is aside from all the sweet stuff, remember that fruits are good but they are Sweet also. Hemoglobin A1c goal of less than 6.5. Patient on Jardiance 10 mg once a day (3) CAD (coronary artery disease): Comment: Ancelmo Murcia- [phone] [facility] Code(s): I25.10 - Atherosclerotic heart disease of [place] coronary artery without angina pectoris Qualifiers: Coronary Disease-Associated Artery/Lesion type: [place] artery [place] vs. transplanted heart: [place] heart Associated angina: with stable angina Qualified Code(s): I25.118 - Atherosclerotic heart disease of [place] coronary artery with other forms of angina pectoris Plan: Control the cholesterol, weight, blood pressure, diabetes continue with aspirin 81 mg once a day (4) CVA (cerebral vascular accident): Comment: June 2020 Code(s): I63.9 - Cerebral infarction, unspecified Qualifiers: CVA mechanism: other Qualified Code(s): I63.89 - Other cerebral infarction Plan: Control the cholesterol, weight, blood pressure, diabetes. (5) Hypertension: Code(s): I10 - Essential (primary) hypertension Qualifiers: Hypertension type: essential hypertension Qualified Code(s): I10 - Essential (primary) hypertension Plan: Continue with blood pressure medication. Decrease salt intake and exercise patient is on metoprolol 25 mg once a day (6) Asthma: Comment: Dr. Pendleton [facility] Code(s): J45.909 - Unspecified asthma, uncomplicated Qualifiers: Asthma severity: mild Asthma persistence: intermittent Asthma complication type: uncomplicated Qualified Code(s): J45.20 - Mild intermittent asthma, uncomplicated Plan: Continue with the inhaler as needed and to use the controller and remembering to rinse mouth after using it. (7) Hypercholesterolemia: Code(s): E78.00 - Pure hypercholesterolemia, unspecified Plan: Avoid fried foods, chicken skin, eggs, butter margarine, pastries and meat. Be it pork or beef they have a lot of cholesterol LDL goal of less than 70 and triglyceride of less than 150 will need blood work June last blood work done 2022 on rosuvastatin 40 mg once a day (8) Colon cancer screening: Comment: Dr. Cartagena 04/2022 1-2 years Code(s): Z12.11 - Encounter for screening for malignant neoplasm of colon Plan: reminded Orders: Orders AMB Hemoglobin A1c Today E11.65 - Type 2 diabetes mellitus with hyperglycemia Coding Level of Care Code Est Pt Prev Care 40-64y(60311) Diagnoses Annual physical exam Z00.00 Type 2 diabetes mellitus with hyperglycemia, without long-term current use of insulin E11.65 Diabetes mellitus assisted insulin use: without assisted use Coronary artery disease of [place] artery of [place] heart with stable angina pectoris I25.118 Coronary Disease-Associated Artery/Lesion type: [place] artery [place] vs. transplanted heart: [place] heart Associated angina: with stable angina Cerebrovascular accident (CVA) due to other mechanism I63.89 CVA mechanism: other Essential hypertension I10 Hypertension type: essential hypertension Mild intermittent asthma without complication J45.20 Asthma severity: mild Asthma persistence: intermittent Asthma complication type: uncomplicated Hypercholesterolemia E78.00 Colon cancer screening Z12.11
== END 2023-07-25 16:57 | disposition home or self-care (01) ==
PROVIDERS: PCP Internal Medicine; Visit Provider Internal Medicine
DX: Z00.00 Encounter for general adult medical examination without abnormal findings (principal); E11.65 Type 2 diabetes mellitus with hyperglycemia; I25.118 Atherosclerotic heart disease of native coronary artery with other forms of angina pectoris; I63.89 Other cerebral infarction; I10 Essential (primary) hypertension; J45.20 Mild intermittent asthma, uncomplicated; E78.00 Pure hypercholesterolemia, unspecified; Z12.11 Encounter for screening for malignant neoplasm of colon
CPT/HCPCS: 83036; 99396

== ENCOUNTER 2023-07-26 08:22 | Outpatient (REF) | payer OTHER, SELFPAY ==
[2023-07-26 09:01] LABS: Basophils Percent Auto 0.6 % (0-2); Eosinophils Absolute Auto 2.6 X10*3/uL (0.0-0.4); Eosinophils Percent Auto 38.7 % (0-4); Hematocrit 43.2 % (42.0-52.0); Hemoglobin 14.8 g/dl (14.0-18.0); Imm Gran Abs Auto 0.01 X10*3/uL (0.00-0.03); Imm Gran Pct Auto 0.1 % (0.0-0.4); Immature Retic Fraction 22.7 % (2.3-13.4); Lymphocytes Absolute Auto 1.1 X10*3/uL (1.2-4.9); MANUAL DIFF FLAG SCAN; Mean Corpuscular HGB Conc 34.3 g/dl (31.0-36.0); Mean Corpuscular Hemoglobin 32.6 pg (27.0-33.0); Mean Corpuscular Volume 95.2 fL (80.0-98.0); Mean Platelet Volume 9.2 fL (9.4-12.4); Monocytes Absolute Auto 0.4 X10*3/uL (0.1-1.2); Neutrophils Absolute Auto 2.5 x10*3/uL (2.0-8.3); Neutrophils Percent Auto 37.6 % (45-73); Platelet Count 161 X10*3/uL (160-400); Red Blood Count 4.54 X10*6/uL (4.60-5.80); Red Cell Distribution Width 13.3 % (11.0-16.0); Retic HGB Equivalent 36.7 pg (30.0-35.0); SCAN SMEAR FLAG 1; White Blood Count 6.7 X10*3/uL (4.8-10.8)
[2023-07-26 09:10] LABS: Estimated Average Glucose 128 mg/dL; Hemoglobin A1c % 6.1 % (<6.0)
[2023-07-26 09:41] LABS: Alanine Aminotransferase 17 U/L (0-40); Albumin Level 4.2 g/dL (3.5-5.0); Alkaline Phosphatase 93 U/L (39-117); Anion Gap 10 (12-20); Aspartate Amino Transferase 19 U/L (5-37); Bilirubin Total 0.5 mg/dL (0.0-1.0); Blood Urea Nitrogen 27 mg/dL (9-16); Calcium 9.5 mg/dL (8.4-10.2); Carbon Dioxide 27 mmol/L (22-29); Chloride 108 mmol/L (96-108); Cholesterol 127 mg/dL (<200); Estimated Glomerular Filt Rate 57; Glucose Random 137 mg/dL (60-115); HDL Cholesterol 30 mg/dL (>40); Iron 71 mcg/dL (45-160); LDL Cholesterol Calculated 66 mg/dL (<100); Percent Iron Saturation 27 % (15-50); Potassium 3.9 mmol/L (3.3-5.1); Sodium 141 mmol/L (135-145); Total Iron Binding Capacity 259 mcg/dL (228-428); Total Protein 7.8 g/dL (6.5-8.0); Triglycerides 155 mg/dL (<150); Unsaturated Iron Binding 188 ug/dL
[2023-07-26 09:42] LABS: SLIDE REVIEW VERIFIED
[2023-07-26 09:51] LABS: Ferritin 77 ng/mL (20-250); Free T4 (Free Thyroxine) 0.71 ng/dL (0.71-1.85); Thyroid Stimulating Hormone 4.78 uIU/mL (0.32-4.0)
[2023-07-26 10:06] LABS: Folate 7.2 ng/mL (> or = 4.0); Prostate Specific Antigen Scr 0.64 ng/mL (<0.05-4.0)
[2023-07-26 10:11] LABS: Vitamin B12 404 pg/mL (200-900)
[2023-07-26 10:20] LABS: Creatinine Urine 185.19 mg/dL; Microalbum/Creatinine Ratio Ur 21.5 ug/mg cr (<30)
== END 2023-07-26 08:23 | disposition home or self-care (01) ==
LOC: HO.LAB 08:22
PROVIDERS: PCP Internal Medicine; Visit Provider Internal Medicine
DX: E11.65 Type 2 diabetes mellitus with hyperglycemia (principal); E78.00 Pure hypercholesterolemia, unspecified; Z12.5 Encounter for screening for malignant neoplasm of prostate
CPT/HCPCS: 36415; 80053; 80061; 82043; 82570; 82607; 82728; 82746; 83036; 83540; 84153; 84439; 84443; 85025; 85045

== ENCOUNTER 2023-10-28 08:06 | Outpatient (AMB) | payer MEDICARE, SELFPAY ==
[2023-10-28 08:25] VITALS: BP 114/62; PULSE 64; O2SAT 96; BMI 29.2
--- NOTE | 2023-10-28 08:25 | A.OFFPC_ITS ---
Vital Signs 10/28/23 08:25 Height 5 ft 3 in Weight 165 lb BMI 29.2 BP 114/62 Blood Pressure Location Lt brachial Position Sitting Pulse 64 Pulse Source Pulse Oximeter Pulse Oximetry (%) 96 Oxygen Delivery Method Room Air Intake Visit Reasons: DM Allergies lisinopril Allergy (Intermediate, Verified 10/28/23 08:26) Angioedema metformin Adverse Reaction (Intermediate, Verified 10/28/23 08:26) abd pain Tobacco use date assessed: 07/25/23 Fall risk assessment: No Falls in past year Last assessed Fall Risk: 10/28/23 Dental Screening Dental Screen Date: 10/28/23 Did you have a dental visit in the last 12 months?: No Did you have a dental problem in the last 6 months where you did not have access to dental care?: No Was dental information given to patient?: Patient has dentist HPI DM HPI Details 63-year-old overweight male with control led diabetes mellitus coronary artery disease history of CVA hypertension asthma hypercholesterolemia coming in for follow-up. Last seen in June 2023. Patient had colonoscopy in April 2022 and was advised to have another 1 in 1-2 years. PATIENT WAS GIVEN A NOTE FROM INSURANCE ABOUT A PROBLEM WITH circulation on the right side. pulses in the feet are strong and equal [facility] Medical History (Updated 07/25/23 @ 16:47 by Jai Sams MD) Colon cancer screening TSH elevation Obesity (BMI 30-39.9) On beta cm at home Preop exam for internal medicine Encounter for screening colonoscopy Balanitis Hypertension Hypertriglyceridemia GERD (gastroesophageal reflux disease) Asthma Fatty liver Surgical History History of colonoscopy Status post cardiac catheterization Family History Father Myocardial infarction Diabetes Mother Diabetes Skin cancer Social History (Updated 07/25/23 @ 16:44 by Jai Sams MD) Housing: Apartment Alcohol intake: current Alcohol intake frequency: holidays/special occasions only Comment: once q 2 week3-4 drinks Patient Tobacco Use Status: Never used Tobacco e-Cigarette/Vaping Use: Never Used Second Hand Smoke Exposure: No service: No Current occupational status: disabled Current occupational exposures/hazards: No Cognitive needs: No Hearing needs: No Vision needs: Yes Questionnaire PHQ-9 Over the last 2 weeks, how often have you been bothered by any of the following problems? 1. Little interest or pleasure in doing things: not at all 2. Feeling down, depressed, or hopeless: not at all 3. Trouble falling or staying asleep, or sleeping too much: not at all 4. Feeling tired or having little energy: not at all 5. Poor appetite or overeating: not at all 6. Feeling bad about yourself - or that you are a failure or have let yourself or your family down: not at all 7. Trouble concentrating on things, such as reading the newspaper or watching television: not at all 8. Moving or speaking so slowly that other people could have noticed. Or the opposite - being so fidgety or restless that you have been moving around a lot more than usual: not at all 9. Thoughts that you would be better off or of hurting yourself in some way: not at all Total score: 0 Depression Screening Interpretation: Negative Depression Screening Done: Yes 07744 - PHQ-9 Billing: Yes Source: Developed by Drs. Haseeb Liang, Mariel Dumont, Almas Mccloud and colleagues, with an educational lora from [employer]. Thrive Questionnaire Date Thrive assessed: 07/25/23 AUDIT C Alcohol Use Questionnaire (AUDIT-C) 1. How often do you have a drink containing alcohol?: Never 3. How often do you have six or more drinks on one occasion?: Never Total Score: 0 KENY-7 AMB Questionnaire KENY-7 Date KENY - 7 assessed: 07/25/23 Source: Developed by Drs. Haseeb Liang, Almas Dalal and colleagues, with an educational lora from [employer]. Physical exam (Primary Care) Vital Signs: Last Vital Signs Pulse 64 10/28/23 08:25 BP 114/62 10/28/23 08:25 Pulse Ox 96 10/28/23 08:25 Oxygen Delivery Method Room Air 10/28/23 08:25 BMI result Body Mass Index 29.2 Tobacco/Smoking Status: Tobacco use Status Tobacco use date assessed 07/25/23 10/28/23 08:26 Patient Tobacco Use Status Never used Tobacco 10/28/23 08:26 e-Cigarette/Vaping Use Never Used 10/28/23 08:26 PHQ-9: PHQ-9 Score PHQ-9: Total score 0 10/28/23 08:26 Depression Screening Interpretation: Negative Thrive Assessment: Date of Thrive Assessment Date Thrive assessed 07/25/23 10/28/23 08:26 Const General: alert; No acute distress Eyes Conjunctivae: conjunctivae normal Resp Auscultation: clear to auscultation bilaterally Cardio Rate: regular rate Rhythm: regular rhythm GI Inspection: Yes normal to inspection Extrem General: Yes normal to inspection and No edema Results AMB Hemoglobin A1c AMB Hemoglobin A1c 6.1 % Last Edit by Sera Marcus CMA on 10/28/23 08 :40 Assessment and Plan Assessment & Plan (1) Colon cancer screening: Comment: Dr. 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 Hemoglobin A1c goal of less than 6.5. Presently on Jardiance 10 mg once a day (3) CAD (coronary artery disease): Comment: Ancelmo Murcia- [phone] [facility] Code(s): I25.10 - Atherosclerotic heart disease of [place] coronary artery without angina pectoris Qualifiers: Associated angina: with stable angina Coronary Disease-Associated Artery/Lesion type: [place] artery [place] vs. transplanted heart: [place] heart Qualified Code(s): I25.118 - Atherosclerotic heart disease of [place] coronary artery with other forms of angina pectoris Plan: Control the cholesterol, weight, blood pressure, diabetes continue with aspirin 81 mg once a day (4) Hypertension: Code(s): I10 - Essential (primary) hypertension Qualifiers: Hypertension type: essential hypertension Qualified Code(s): I10 - Essential (primary) hypertension Plan: Continue with blood pressure medication. Decrease salt intake and exercise meto prolol 25 mg once a day (5) Asthma: Comment: Dr. Pendleton [facility] Code(s): J45.909 - Unspecified asthma, uncomplicated Qualifiers: Asthma complication type: uncomplicated Asthma persistence: intermittent Asthma severity: mild Qualified Code(s): J45.20 - Mild intermittent asthma, uncomplicated Plan: Continue with asthma inhalers albuterol as needed and Breo as a controller and reminded about rinsing mouth after using. (6) Hypercholesterolemia: Code(s): E78.00 - Pure hypercholesterolemia, unspecified Plan: Avoid fried foods, chicken skin, eggs, butter margarine, pastries and meat. Be it pork or beef they have a lot of cholesterol LDL goal of less than 70 and triglyceride of less than 150. On rosuvastatin 40 mg once a day Orders: Orders Thyroid Stimulating Hormone 3 Months E11.65 - Type 2 diabetes mellitus with hyperglycemia Hemoglobin A1c 3 Months E11.65 - Type 2 diabetes mellitus with hyperglycemia AMB Hemoglobin A1c Today Z13.9 - Encounter for screening, unspecified Free T4 (Free Thyroxine) 3 Months E11.65 - Type 2 diabetes mellitus with hyperglycemia Comprehensive Met. Panel 3 Months E11.65 - Type 2 diabetes mellitus with hyperglycemia Coding Level of Care Code Est Pt Level 4 (86748) Diagnoses Colon cancer screening Z12.11 Type 2 diabetes mellitus with hyperglycemia, without long-term current use of insulin E11.65 Diabetes mellitus assisted insulin use: without assisted use Coronary artery disease of [place] artery of [place] heart with stable angina pectoris I25.118 Associated angina: with stable angina Coronary Disease-Associated Artery/Lesion type: [place] artery [place] vs. transplanted heart: [place] heart Essential hypertension I10 Hypertension type: essential hypertension Mild intermittent asthma without complication J45.20 Asthma complication type: uncomplicated Asthma persistence: intermittent Asthma severity: mild Hypercholesterolemia E78.00
== END 2023-10-28 08:56 | disposition home or self-care (01) ==
PROVIDERS: PCP Internal Medicine; Visit Provider Internal Medicine
DX: E11.65 Type 2 diabetes mellitus with hyperglycemia (principal); I25.118 Atherosclerotic heart disease of native coronary artery with other forms of angina pectoris; I10 Essential (primary) hypertension; J45.20 Mild intermittent asthma, uncomplicated; E78.00 Pure hypercholesterolemia, unspecified
CPT/HCPCS: 83036; 99214

== ENCOUNTER 2024-03-09 08:39 | Outpatient (REF) | payer MEDICARE, SELFPAY ==
[2024-03-09 09:33] LABS: Estimated Average Glucose 143 mg/dL; Hemoglobin A1c % 6.6 % (<6.0)
[2024-03-09 09:50] LABS: Alanine Aminotransferase 19 U/L (0-40); Albumin Level 4.3 g/dL (3.5-5.0); Alkaline Phosphatase 84 U/L (39-117); Anion Gap 12 (12-20); Aspartate Amino Transferase 17 U/L (5-37); Bilirubin Total 0.6 mg/dL (0.0-1.0); Blood Urea Nitrogen 21 mg/dL (9-16); Calcium 9.9 mg/dL (8.4-10.2); Carbon Dioxide 26 mmol/L (22-29); Chloride 108 mmol/L (96-108); Estimated Glomerular Filt Rate > 60; Glucose Random 125 mg/dL (60-115); Potassium 3.7 mmol/L (3.3-5.1); Sodium 142 mmol/L (135-145); Total Protein 7.6 g/dL (6.5-8.0)
[2024-03-09 10:04] LABS: Creatinine Urine 181.44 mg/dL
[2024-03-09 10:07] LABS: Free T4 (Free Thyroxine) 0.65 ng/dL (0.71-1.85); Thyroid Stimulating Hormone 4.59 uIU/mL (0.32-4.0)
== END 2024-03-09 08:40 | disposition home or self-care (01) ==
LOC: HO.LAB 08:39
PROVIDERS: PCP Internal Medicine; Visit Provider Internal Medicine
DX: E11.65 Type 2 diabetes mellitus with hyperglycemia (principal)
CPT/HCPCS: 36415; 80053; 82570; 83036; 84439; 84443

== ENCOUNTER 2024-03-15 08:18 | Outpatient (AMB) | payer MEDICARE, SELFPAY ==
[2024-03-15 08:30] VITALS: BP 112/60; PULSE 68; O2SAT 98; BMI 29.8
--- NOTE | 2024-03-15 08:30 | MHC.PC.OV ---
Vital Signs 03/15/24 08:30 Height 5 ft 3 in Weight 168 lb BMI 29.8 BP 112/60 Blood Pressure Location Lt brachial Position Sitting Pulse 68 Pulse Source Pulse Oximeter Pulse Oximetry (%) 98 Oxygen Delivery Method Room Air Intake Visit Reasons: DM Follow Up Allergies lisinopril Allergy (Intermediate, Verified 03/15/24 08:30) Angioedema metformin Adverse Reaction (Intermediate, Verified 03/15/24 08:30) abd pain Tobacco use date assessed: 07/25/23 Fall risk assessment: No Falls in past year Last assessed Fall Risk: 03/15/24 Dental Screening Dental Screen Date: 10/28/23 HPI DM Follow Up HPI Details 63-year-old overweight male with controlled diabetes mellitus coronary artery disease hypertension asthma hypercholesterolemia last seen in 11/14/2023. Patient's colonoscopy is due. Review of the notes up-to-date with eye exam has seen Cardiology in November 2023 inferior lateral NH in 07/16/2020. [facility] Medical History (Updated 07/25/23 @ 16:47 by Jai Sams MD) Colon cancer screening TSH elevation Obesity (BMI 30-39.9) On beta cm at home Preop exam for internal medicine Encounter for screening colonoscopy Balanitis Hypertension Hypertriglyceridemia GERD (gastroesophageal reflux disease) Asthma Fatty liver Surgical History History of colonoscopy Status post cardiac catheterization Family History Father Myocardial infarction Diabetes Mother Diabetes Skin cancer Social History (Updated 07/25/23 @ 16:44 by aJi Sasm MD) Housing: Apartment Alcohol intake: current Alcohol intake frequency: holidays/special occasions only Comment: once q 2 week3-4 drinks Patient Tobacco Use Status: Never used Tobacco Tobacco use type: Cigarette e-Cigarette/Vaping Use: Never Used Second Hand Smoke Exposure: No service: No Current occupational status: disabled Current occupational exposures/hazards: No Cognitive needs: No Hearing needs: No Vision needs: Yes Questionnaire PHQ-9 Over the last 2 weeks, how often have you been bothered by any of the following problems? 1. Little interest or pleasure in doing things: not at all 2. Feeling down, depressed, or hopeless: not at all 3. Trouble falling or staying asleep, or sleeping too much: not at all 4. Feeling tired or having little energy: not at all 5. Poor appetite or overeating: not at all 6. Feeling bad about yourself - or that you are a failure or have let yourself or your family down: not at all 7. Trouble concentrating on things, such as reading the newspaper or watching television: not at all 8. Moving or speaking so slowly that other people could have noticed. Or the opposite - being so fidgety or restless that you have been moving around a lot more than usual: not at all 9. Thoughts that you would be better off or of hurting yourself in some way: not at all Total score: 0 Depression Screening Interpretation: Negative Depression Screening Done: Yes 11351 - PHQ-9 Billing: Yes Source: Developed by Drs. Haseeb Liang, Mariel Dumont, Almas Mccloud and colleagues, with an educational lora from [employer]. Thrive Questionnaire Date Thrive assessed: 07/25/23 Are you currently unemployed and looking for a job?: No AUDIT C Alcohol Use Questionnaire (AUDIT-C) 1. How often do you have a drink containing alcohol?: Never 3. How often do you have six or more drinks on one occasion?: Never Total Score: 0 KENY-7 AMB Questionnaire KENY-7 Date KENY - 7 assessed: 07/25/23 Source: Developed by Drs. Haseeb Liang, Mariel Dumont, Almas Mccloud and colleagues, with an educational lora from [employer]. Physical exam (Primary Care) Vital Signs: Last Vital Signs Pulse 68 03/15/24 08:30 BP 112/60 03/15/24 08:30 Pulse Ox 98 03/15/24 08:30 Oxygen Delivery Method Room Air 03/15/24 08:30 BMI result Body Mass Index 29.8 Tobacco/Smoking Status: Tobacco use Status Tobacco use date assessed 07/25/23 03/15/24 08:35 Patient Tobacco Use Status Never used Tobacco 03/15/24 08:35 Tobacco use type Cigarette 03/15/24 08:35 e-Cigarette/Vaping Use Never Used 03/15/24 08:35 PHQ-9: PHQ-9 Score PHQ-9: Total score 0 03/15/24 08:35 Depression Screening Interpretation: Negative Thrive Assessment: Date of Thrive Assessment Date Thrive assessed 07/25/23 03/15/24 08:35 Const General: alert; No acute distress Eyes Conjunctivae: conjunctivae normal Resp Auscultation: clear to auscultation bilaterally Cardio Rate: regular rate Rhythm: regular rhythm GI Inspection: Yes normal to inspection Extrem General: Yes normal to inspection and No edema Assessment and Plan Assessment & Plan (1) Type 2 diabetes mellitus with hyperglycemia: Comment: [facility] 02/2023 Code(s): E11.65 - Type 2 diabetes mellitus with hyperglycemia Qualifiers: Diabetes mellitus bed bug exterminator insulin use: without bed bug exterminator use Qualified Code(s): E11.65 - Type 2 diabetes mellitus with hyperglycemia Plan: Decrease the amount of carbohydrate intake, pasta, bread, rice and potatoes are all sugar and that is aside from all the sweet stuff, remember that fruits are good but they are Sweet also. Hemoglobin A1c goal of less than 6.5 patient takes Jardiance 10 mg once a day (2) CAD (coronary artery disease): Comment: Ancelmo Murcia- [phone] [facility] Code(s): I25.10 - Atherosclerotic heart disease of [place] coronary artery without angina pectoris Qualifiers: Coronary Disease-Associated Artery/Lesion type: [place] artery [place] vs. transplanted heart: [place] heart Associated angina: with stable angina Qualified Code(s): I25.118 - Atherosclerotic heart disease of [place] coronary artery with other forms of angina pectoris Plan: Control the cholesterol, weight, blood pressure, diabetes continue with aspirin 81 mg once a day continue to follow up with Cardiology (3) CVA (cerebral vascular accident): Comment: June 2020 Code(s): I63.9 - Cerebral infarction, unspecified Qualifiers: CVA mechanism: other Qualified Code(s): I63.89 - Other cerebral infarction Plan: Control the cholesterol, weight, blood pressure, diabetes (4) Hypercholesterolemia: Code(s): E78.00 - Pure hypercholesterolemia, unspecified Plan: Avoid fried foods, chicken skin, eggs, butter margarine, pastries and meat. Be it pork or beef they have a lot of cholesterol 07/16/2023 last blood work LDL goal of less than 70 and triglyceride of less than 150 on rosuvastatin 40 mg once a (5) Hypertension: Code(s): I10 - Essential (primary) hypertension Qualifiers: Hypertension type: essential hypertension Qualified Code(s): I10 - Essential (primary) hypertension Plan: Continue with blood pressure medication. Decrease salt intake and exercise metoprolol 25 mg once a day (6) Colon cancer screening: Comment: Dr. Cartagena 04/2022 1-2 years Code(s): Z12.11 - Encounter for screening for malignant neoplasm of colon Plan: Patient is reminded about colonoscopy Orders: Orders Complete Blood Count Auto Diff 3 Months E11.65 - Type 2 diabetes mellitus with hyperglycemia Free T4 (Free Thyroxine) 3 Months E11.65 - Type 2 diabetes mellitus with hyperglycemia Hemoglobin A1c 3 Months E11.65 - Type 2 diabetes mellitus with hyperglycemia Prostate Specific Antigen Scr 3 Months E11.65 - Type 2 diabetes mellitus with hyperglycemia Comprehensive Met. Panel 3 Months E11.65 - Type 2 diabetes mellitus with hyperglycemia Lipid Panel 3 Months E11.65 - Type 2 diabetes mellitus with hyperglycemia, E78.00 - Pure hypercholesterolemia, unspecified Thyroid Stimulating Hormone 3 Months E11.65 - Type 2 diabetes mellitus with hyperglycemia Creatinine Urine 3 Months E11.65 - Type 2 diabetes mellitus with hyperglycemia Microalbumin, Random (w Creat) 3 Months E11.65 - Type 2 diabetes mellitus with hyperglycemia Vitamin B12 and Folate 3 Months E11.65 - Type 2 diabetes mellitus with hyperglycemia Medications: Changed From empagliflozin (Jardiance) 10 mg PO DAILY 30 days 90 tabs 3RF E11.65 - Type 2 diabetes mellitus with hyperglycemia To empagliflozin 10 mg (0.4 x 25 mg) PO DAILY 30 days 12 tabs 3RF E11.65 - Type 2 diabetes mellitus with hyperglycemia Coding Level of Care Code Est Pt Level 4 (38371) Complex EM visit Add On G2211 Diagnoses Type 2 diabetes mellitus with hyperglycemia, without long-term current use of insulin E11.65 Diabetes mellitus bed bug exterminator insulin use: without bed bug exterminator use Coronary artery disease of [place] artery of [place] heart with stable angina pectoris I25.118 Coronary Disease-Associated Artery/Lesion type: [place] artery [place] vs. transplanted heart: [place] heart Associated angina: with stable angina Cerebrovascular accident (CVA) due to other mechanism I63.89 CVA mechanism: other Hypercholesterolemia E78.00 Essential hypertension I10 Hypertension type: essential hypertension Colon cancer screening Z12.11
== END 2024-03-15 08:51 | disposition home or self-care (01) ==
PROVIDERS: PCP Internal Medicine; Visit Provider Internal Medicine
DX: E11.65 Type 2 diabetes mellitus with hyperglycemia (principal); I25.118 Atherosclerotic heart disease of native coronary artery with other forms of angina pectoris; I63.89 Other cerebral infarction; E78.00 Pure hypercholesterolemia, unspecified; I10 Essential (primary) hypertension; Z12.11 Encounter for screening for malignant neoplasm of colon

== ENCOUNTER → 2024-03-15 08:18 | Outpatient (BNVA) | payer MEDICARE, SELFPAY | PROVIDERS: PCP Internal Medicine; Visit Provider Internal Medicine | DX: E11.65 Type 2 diabetes mellitus with hyperglycemia (principal); I25.118 Atherosclerotic heart disease of native coronary artery with other forms of angina pectoris; I63.89 Other cerebral infarction; E78.00 Pure hypercholesterolemia, unspecified; I10 Essential (primary) hypertension | CPT/HCPCS: 99212 ==

== ENCOUNTER 2024-04-10 10:41 | Outpatient (REF) | payer MEDICARE, SELFPAY | END 2024-04-10 10:42 | disposition home or self-care (01) | LOC: HO.LAB 10:41 | PROVIDERS: PCP Internal Medicine; Visit Provider Internal Medicine | DX: Z13.89 Encounter for screening for other disorder (principal) ==

== ENCOUNTER 2024-04-13 13:28 | Outpatient (AMB) | payer MEDICARE, SELFPAY ==
--- NOTE | 2024-04-13 13:43 | AM.OFFVISMDC ---
Intake Vital Signs 04/13/24 13:51 Height 5 ft 3 in Weight 163 lb 4 oz BMI 28.9 BP 122/80 Blood Pressure Location Lt brachial Position Sitting Pulse 72 Pulse Source Pulse Oximeter Pulse Oximetry (%) 98 Oxygen Delivery Method Room Air Intake Visit Reasons: SA[facility] Lead Manufacturing Engineer Required: Yes Lead Manufacturing Engineer Language: Serbian Accompanied by: Self / Same As Patient Allergies lisinopril Allergy (Intermediate, Verified 04/13/24 13:52) Angioedema metformin Adverse Reaction (Intermediate, Verified 04/13/24 13:52) abd pain Medication List - Last Reconciled 04/13/24 by Jai Sams MD albuterol sulfate 90 mcg/actuation 2 puffs inhalation Q6H PRN aspirin (Adult Low Dose Aspirin) 81 mg PO DAILY blood sugar diagnostic (OneTouch Ultra Test strips) As directed check the blood sugar once a day blood sugar diagnostic (FreeStyle Lite Strips) As directed check the BS QD blood-glucose meter (FreeStyle Lite Meter kit) As directed blood-glucose meter (OneTouch Ultra2 Meter) As directed check blood sugar once a day clotrimazole 1% 1 appl topical BID 4 weeks [DEHUMIDIFIER/VAPORIZER As directed] empagliflozin 25 mg PO DAILY 30 days fluticasone furoate-vilanterol 200-25 mcg/dose (Breo Ellipta) 1 inh inhalation DAILY lancets (OneTouch UltraSoft 2 Lancet) As directed check blood sugar once a day lancets (FreeStyle Lancets) As directed check BS QD methylcellulose (laxative) (Citrucel) 500 mg PO BID metoprolol succinate ER 25 mg PO DAILY 90 days rosuvastatin 40 mg PO DAILY zafirlukast 20 mg PO BID HPI SAWV HPI Details 63-year-old overweight male with controlled diabetes mellitus coronary artery disease hypercholesterolemia hypertension last seen in February 2024. Patient's last colonoscopy was done in 05/16/2022 and was advised to have a repeat. Patient's last cardiology note November 2023 patient is here for annual well visit. cardiology [facility] CArdiology GASTRO Dr. Navarro, Cardiology [facility] Medical History (Updated 04/13/24 @ 13:53 by Jai Sams MD) Colon cancer screening TSH elevation Obesity (BMI 30-39.9) On beta cm at home Preop exam for internal medicine Encounter for screening colonoscopy Balanitis Hypertension Hypertriglyceridemia GERD (gastroesophageal reflux disease) Asthma Fatty liver Surgical History History of colonoscopy Status post cardiac catheterization Family History Father Myocardial infarction Diabetes Mother Diabetes Skin cancer Social History (Updated 04/13/24 @ 14:00 by Jai Sams MD) Housing: Apartment Alcohol intake: current Alcohol intake frequency: holidays/special occasions only Comment: once q 2 week 2-3 drinks Patient Tobacco Use Status: Never used Tobacco Tobacco use type: Cigarette e-Cigarette/Vaping Use: Never Used Second Hand Smoke Exposure: No service: No Current occupational status: disabled Current occupational exposures/hazards: No Cognitive needs: No Hearing needs: No Vision needs: Yes Questionnaire Medicare Wellness Checkup [age] What gender do you identify with?: male During the past 4 weeks, how much have you been bothered by emotional problems such as feeling anxious, depressed, irritable, sad or downhearted, and blue?: not at all During the past 4 weeks, has your physical & emotional health limited your social activities with family, friends, neighbors, or groups?: not at all During the past 4 weeks, how much bodily pain have you generally had?: no pain During the past 4 weeks, was someone available to help you if you needed & wanted help?: no, not at all During the past 4 weeks, what was the hardest physical activity you could do for at least 2 minutes?: heavy Can you get to places out of walking distance without help? (For eg., can you travel alone on buses, taxis or drive your car?): Yes Can you go shopping for groceries or clothes without someone's help?: Yes Can you prepare your own meals?: Yes Can you do your housework without help?: Yes Because of any health problems, do you need the help of another person with your personal care needs such as eating, bathing, dressing or getting around the house?: No Can you handle your own money without help?: Yes During the past 4 weeks, how would you rate your health in general?: very good During the past 4 weeks how have things been going for you?: very well; could hardly better Are you having difficulties driving your car?: no Do you always fasten your seat belt when you are in a car?: yes, usually During past 4 weeks, have you been bothered by the following: never: Falling or dizzy when standing up, Sexual problems?, Trouble eating well?, Teeth or denture problems?, Problems using the telephone? and Tiredness or fatigue? Have you fallen 2 or more times in the past year?: No Are you a smoker?: no During the past 4 weeks, how many drinks of wine, beer, or other alcoholic beverages did you have?: 1 drink or less per week Do you exercise for about 20 minutes 3 or more times a week?: yes, all the time Have you been given information to help with the following?: no: Hazards in your house that might hurt you? and no: Keeping track of your medications? How often do you have trouble taking medicines the way you have been told to take them?: I always take medicine as prescribed How confident are you that you can control & manage most of your health problems?: very confident What is your race?: or origin or descent PHQ-9 Over the last 2 weeks, how often have you been bothered by any of the following problems? 1. Little interest or pleasure in doing things: not at all 2. Feeling down, depressed, or hopeless: not at all 3. Trouble falling or staying asleep, or sleeping too much: not at all 4. Feeling tired or having little energy: not at all 5. Poor appetite or overeating: not at all 6. Feeling bad about yourself - or that you are a failure or have let yourself or your family down: not at all 7. Trouble concentrating on things, such as reading the newspaper or watching television: not at all 8. Moving or speaking so slowly that other people could have noticed. Or the opposite - being so fidgety or restless that you have been moving around a lot more than usual: not at all 9. Thoughts that you would be better off or of hurting yourself in some way: not at all Total score: 0 Depression Screening Interpretation: Negative Depression Screening Done: Yes 80249 - PHQ-9 Billing: Yes Source: Developed by Drs. Haseeb Liang, Mariel Dumont, Almas Mccloud and colleagues, with an educational lora from [employer]. Review of Systems Const Denies poor appetite and Denies weakness Eyes Denies no additional complaints ENT Reports Normal hearing present, Denies dizziness, Denies nasal congestion, Denies tinnitus and Denies sore throat Card Denies chest pain, Denies syncope, Denies rapid heart rate and Denies dyspnea Resp Denies cough and Denies dyspnea GI Denies change in stool character, Reports constipation, Denies diarrhea, Denies nausea and Denies vomiting Denies dysuria and Denies urinary frequency Neuro Reports Normal hearing present, Denies confusion, Denies dizziness, Denies syncope and Denies weakness Psych Denies confusion Physical Exam Vital Signs: Last Vital Signs Pulse 72 04/13/24 13:51 BP 122/80 04/13/24 13:51 Pulse Ox 98 04/13/24 13:51 Oxygen Delivery Method Room Air 04/13/24 13:51 BMI result Body Mass Index 28.9 Const General: No confusion Orientation/consciousness: No confusion HEENT Head: Yes normocephalic Ears: external ears normal and TM's normal bilaterally Face and sinus: Yes normal facial exam Mouth: moist mucous membranes Throat: Yes tonsils normal Eyes Conjunctivae: conjunctivae normal Pupils: Equal, round and reactive pupils present and Pupil accommodation reflex normal Direct Ophthalmoscopy: normal light reflex Neck Neck: No lymphadenopathy Thyroid: Thyroid normal Chest Chest palpation & inspection: normal inspection of the chest Resp Effort & Inspection: normal respiratory effort and no audible wheezes Auscultation: clear to auscultation bilaterally, no crackles, no wheezes and lung sounds not diminished Cardio Rate: regular rate Rhythm: regular rhythm Peripheral pulses: radial pulses present and dorsalis pedis present GI Other: hemorrhoid noted guiaic negative prostATE N Palpation (GI): no masses Auscultation: normal bowel sounds and normoactive bowel sounds Male General Exam: Yes normal external exam Skin General skin exam: no rashes or lesions noted Rashes: no rashes Neuro General: No confusion Cranial nerves: Yes Equal, round and reactive pupils present and Yes Normal hearing present Cognition (Neuro): normal cognition Gait exam (Neuro): Normal gait present Motor exam (neuro): 5/5 motor strength present throughout Deep tendon reflexes (DTR's): Right brachioradialis reflex intensity grade: 2+, Left brachioradialis reflex intensity grade: 2+, Right patellar reflex intensity grade: 2+ and Left patellar reflex intensity grade: 2+ Extrem General: No edema Office Procedures Flu Questionnaire Does the patient have a severe egg allergy?: No Does the patient have severe life threatening allergies?: No Does the patient have a fever or illness today?: No Has the patient ever had Guillain-[place] Syndrome?: No Has the patient ever had any past reaction to a flu shot?: No Immunizations Fluarix Triv [id number] (PF) 45 mcg (15 mcg x 3)/0.5 mL IM syringe Performing Provider: Jai Sams MD Performing Location[facility] [place] [facility] Administered by: FILOMENA Meeks on 04/13/24 13:52 Dose Route Admin Location Dispensed Lot Number Expiration Date NDC Oxyacetylene Cutter 0.5 mL IM Left Deltoid 0.5 mL [id number] 12/24/24 [id number] [employer] VIS Given Date VIS Provided VIS Publication Date 04/13/24 Single Vaccine 21 Eligibility Eligibility Date Funding Source Not [facility] Eligible 04/13/24 Private Assessment & Plan Assessment & Plan (1) Medicare annual wellness visit, subsequent: Code(s): Z00.00 - Encounter for general adult medical examination without abnormal findings Plan: Patient is advised to eat healthy, keep well hydrated, keep active and have adequate sleep. (2) Type 2 diabetes mellitus with hyperglycemia: Comment: [facility] 02/2023 Code(s): E11.65 - Type 2 diabetes mellitus with hyperglycemia Qualifiers: Diabetes mellitus detention insulin use: without detention use Qualified Code(s): E11.65 - Type 2 diabetes mellitus with hyperglycemia Plan: Decrease the amount of carbohydrate intake, pasta, bread, rice and potatoes are all sugar and that is aside from all the sweet stuff, remember that fruits are good but they are Sweet also. Hemoglobin A1c goal of less than 6.5. Patient on Jardiance 25 mg once a day (3) CAD (coronary artery disease): Comment: Ancelmo Murcia- [phone] [facility] Code(s): I25.10 - Atherosclerotic heart disease of [place] coronary artery without angina pectoris Qualifiers: Associated angina: with stable angina Coronary Disease-Associated Artery/Lesion type: [place] artery [place] vs. transplanted heart: [place] heart Qualified Code(s): I25.118 - Atherosclerotic heart disease of [place] coronary artery with other forms of angina pectoris Plan: Control the cholesterol, weight, blood pressure, diabetes patient is on aspirin 81 mg once a day (4) Asthma: Comment: Dr. Pendleton [facility] Code(s): J45.909 - Unspecified asthma, uncomplicated Qualifiers: Asthma complication type: uncomplicated Asthma persistence: intermittent Asthma severity: mild Qualified Code(s): J45.20 - Mild intermittent asthma, uncomplicated Plan: Continue with albuterol inhaler and Breo (5) CVA (cerebral vascular accident): Comment: June 2020 Code(s): I63.9 - Cerebral infarction, unspecified Qualifiers: CVA mechanism: other Qualified Code(s): I63.89 - Other cerebral infarction Plan: Control the cholesterol, weight, blood pressure, diabetes patient on aspirin (6) Hypercholesterolemia: Code(s): E78.00 - Pure hypercholesterolemia, unspecified Plan: Avoid fried foods, chicken skin, eggs, butter margarine, pastries and meat. Be it pork or beef they have a lot of cholesterol June 2023 last blood work will need repeat test LDL goal of less than 70 and triglyceride of less than 150 on rosuvastatin 40 mg once a day (7) Colon cancer screening: Comment: Dr. Cartagena 04/2022 1-2 years Code(s): Z12.11 - Encounter for screening for malignant neoplasm of colon Plan: Patient is reminded about the colon cancer screening. (8) Hypertension: Code(s): I10 - Essential (primary) hypertension Qualifiers: Hypertension type: essential hypertension Qualified Code(s): I10 - Essential (primary) hypertension Plan: Continue with blood pressure medication. Decrease salt intake and exercise patient taking metoprolol 25 mg once a day Orders: Orders Influenza [id number] Immunization Today Z23 - Encounter for immunization Referrals Gastroenterology Referral Z12.11 - Encounter for screening for malignant neoplasm of colon Quality Reporting (2019) Depression/Bipolar (159/160/161/177) PHQ-9: Total score: 0 Coding Level of Care Code Medicare Subsequent (G0439) Diagnoses Medicare annual wellness visit, subsequent Z00.00 Type 2 diabetes mellitus with hyperglycemia, without long-term current use of insulin E11.65 Diabetes mellitus manager terminal insulin use: without manager terminal use Coronary artery disease of [place] artery of [place] heart with stable angina pectoris I25.118 Associated angina: with stable angina Coronary Disease-Associated Artery/Lesion type: [place] artery [place] vs. transplanted heart: [place] heart Mild intermittent asthma without complication J45.20 Asthma complication type: uncomplicated Asthma persistence: intermittent Asthma severity: mild Cerebrovascular accident (CVA) due to other mechanism I63.89 CVA mechanism: other Hypercholesterolemia E78.00 Colon cancer screening Z12.11 Essential hypertension I10 Hypertension type: essential hypertension
[2024-04-13 13:51] VITALS: BP 122/80; PULSE 72; O2SAT 98; BMI 28.9
== END 2024-04-13 14:17 | disposition home or self-care (01) ==
PROVIDERS: PCP Internal Medicine; Visit Provider Internal Medicine
DX: Z00.00 Encounter for general adult medical examination without abnormal findings (principal); E11.65 Type 2 diabetes mellitus with hyperglycemia; I25.118 Atherosclerotic heart disease of native coronary artery with other forms of angina pectoris; I63.89 Other cerebral infarction; J45.20 Mild intermittent asthma, uncomplicated; E78.00 Pure hypercholesterolemia, unspecified; Z12.11 Encounter for screening for malignant neoplasm of colon; I10 Essential (primary) hypertension

== ENCOUNTER → 2024-04-13 13:28 | Outpatient (BNVA) | payer MEDICARE, SELFPAY | PROVIDERS: PCP Internal Medicine; Visit Provider Internal Medicine | DX: Z00.00 Encounter for general adult medical examination without abnormal findings (principal); E11.65 Type 2 diabetes mellitus with hyperglycemia; I25.118 Atherosclerotic heart disease of native coronary artery with other forms of angina pectoris; J45.20 Mild intermittent asthma, uncomplicated; E78.00 Pure hypercholesterolemia, unspecified; I10 Essential (primary) hypertension; Z86.73 Personal history of transient ischemic attack (TIA), and cerebral infarction without residual deficits; Z79.82 Long term (current) use of aspirin; Z79.84 Long term (current) use of oral hypoglycemic drugs; Z79.899 Other long term (current) drug therapy; Z23 Encounter for immunization | CPT/HCPCS: 90471; 90656; 96127 ==

== ENCOUNTER 2024-07-10 14:48 | Outpatient (AMB) | payer MEDICARE, SELFPAY ==
[2024-07-10 14:50] VITALS: BP 142/83; PULSE 64; BMI 28.8
--- NOTE | 2024-07-10 14:50 | MHC.OFFVIS ---
Vital Signs 07/10/24 14:50 Height 5 ft 3 in Weight 162 lb 11.218 oz BMI 28.8 BP 142/83 H Blood Pressure Location Lt brachial Position Sitting Pulse 64 Intake Visit Reasons: Dina pt Colonoscopy screening Intake Note: Nader presents in office today for colonoscopy screening. CC: Patient denies having any GI symptoms or concerns today. Interior Decorator Painting Required: Yes Interior Decorator Painting Services: Interior Decorator Painting Present Accompanied by: Self / Same As Patient Allergies lisinopril Allergy (Intermediate, Verified 07/10/24 15:03) Angioedema metformin Adverse Reaction (Intermediate, Verified 07/10/24 15:03) abd pain HPI HPI Dina pt Colonoscopy screening: Details: 64-YEAR-OLD MALE HERE for preprocedural meeting to discuss a screening colonoscopy. He is referred by Jai Sams. PMX Asthma Diabetes Hypertension High cholesterol Coronary artery disease History of CVA GERD Hemorrhoids * SURGICAL HISTORY Colonoscopy-2010= negative study; 2021 Mike= poor prep Cardiac catheterization * ALLERGIES Lisinopril Metformin * [facility] LABS: needs repeat labs TODAY'S VISIT This patient was seen in 2021 by Constance Newell in its that time had a colonoscopy with insufficient prep. [place] #Colby Live THere is some question of whether he drank all of the Miralax prep or only half of it. I will have him start a low fiber diet 7 days prior and take bisacodyl 7 days prior with PEG. His asthma is well controlled as is his cardiac problems. No prior problems with anesthesia or sedation. No ID problems. HIs first colonoscopy at age 49 was negative and there is no known FHX of crc or polyps. [facility] Medical History (Updated 07/10/24 @ 16:37 by GHAZALA Jolley) Colon cancer screening Obesity (BMI 30-39.9) CAD (coronary artery disease) CVA (cerebral vascular accident) Annual physical exam Laryngitis Diverticulosis of colon Medicare annual wellness visit, subsequent TSH elevation On beta cm at home Preop exam for internal medicine Encounter for screening colonoscopy Balanitis Hypertension Hypertriglyceridemia GERD (gastroesophageal reflux disease) Asthma Fatty liver Surgical History History of colonoscopy Status post cardiac catheterization Family History Father Myocardial infarction Diabetes Mother Diabetes Skin cancer Social History Housing: Apartment Alcohol intake: current Alcohol intake frequency: holidays/special occasions only Comment: once q 2 week 2-3 drinks Patient Tobacco Use Status: Never used Tobacco Tobacco use type: Cigarette e-Cigarette/Vaping Use: Never Used Second Hand Smoke Exposure: No service: No Current occupational status: disabled Current occupational exposures/hazards: No Cognitive needs: No Hearing needs: No Vision needs: Yes Review of Systems Const Denies fatigue, Denies fever(s), Denies night sweats, Denies poor appetite and Denies weight loss Eyes Details: glasses Reports requires corrective lenses ENT Reports Normal hearing present, Denies dental pain, Denies dysphagia, Denies hearing loss, Denies mouth pain, Denies odynophagia, Denies throat swelling, Denies tongue swelling and Reports other (Dentition adequate) GI Details: Denies abdominal pain, Denies melena, Denies bloating, Denies hematochezia, Denies constipation, Denies GI cramping, Denies dysphagia, Denies excessive flatus, Denies early satiety, Denies heartburn, Denies diarrhea, Denies nausea, Denies odynophagia, Denies vomiting and Denies hematemesis Skin/Breast Denies pruritus, Denies lesions, Denies rash and Denies jaundice Neuro Reports Normal hearing present and Denies Abnormal speech present Endo Denies fatigue Aller/Immun Denies throat swelling and Denies tongue swelling Physical Exam Vital Signs: Last Vital Signs Pulse 64 07/10/24 14:50 BP 142/83 H 07/10/24 14:50 BMI result Body Mass Index 28.8 Const General: cooperative, no acute distress, well developed and well groomed Nutritional Appearance: well nourished, obese and overweight Orientation/consciousness: oriented to person, oriented to place and oriented to time Limitations: No language barrier, ambulation with cane, ambulation with walker and wheelchair HEENT Head: Yes normocephalic and Yes atraumatic Eyes General: appearance normal, both eyes and all related structures Pupils: Equal, round and reactive pupils present Neck Neck: Yes normal visual inspection and Yes no lymphadenopathy Thyroid: Thyroid normal Resp Effort & Inspection: normal respiratory effort and able to speak in complete sentences Auscultation: clear to auscultation bilaterally Cardio Rate: regular rate Rhythm: regular rhythm Heart sounds: Normal, physiologic split S2 sound present Peripheral pulses: radial pulses present and posterior tibial pulses present GI Inspection: No distended and No Abdominal panniculus present Palpation (GI): Soft to palpation, nontender, no guarding, not rigid and No hepatosplenomegaly present Percussion: Yes normal to percussion Auscultation: normal bowel sounds Rectal Exam - Male: Yes deferred Skin General skin exam: no rashes or lesions noted, turgor normal, skin not dry, no jaundice, No spider nevi and no striae Rashes: no rashes Nails: normal Neuro General: oriented to person, oriented to place and oriented to time Cranial nerves: Yes Equal, round and reactive pupils present and Yes Normal hearing present Speech: No Abnormal speech present Extrem General: Yes normal to inspection, No clubbing, No cyanosis and No edema Psych Appearance: grossly normal and well kempt Mental Status: mental status grossly normal Speech and movement: Normal speech and movement present Affect: normal affect Attitude: cooperative Thought process: Normal thought process present and not confabulating Thought content: Normal thought content present Insight: Limited insight present (Psych) Judgement: Limited judgement present (Psych) Assessment & Plan Assessment & Plan (1) Pre-op evaluation: Code(s): Z01.818 - Encounter for other preprocedural examination Category: Medical (2) Asthma: Comment: Dr. Pendleton Pulmonogy Code(s): J45.909 - Unspecified asthma, uncomplicated Category: Medical Qualifiers: Asthma complication type: uncomplicated Asthma persistence: intermittent Asthma severity: mild Qualified Code(s): J45.20 - Mild intermittent asthma, uncomplicated Plan This patient was seen in 2021 by Constance Newell in its that time had a colonoscopy with insufficient prep. [place] #Colby Live THere is some question of whether he drank all of the Miralax prep or only half of it. I will have him start a low fiber diet 7 days prior and take bisacodyl 7 days prior with PEG. His asthma is well controlled as is his cardiac problems. No prior problems with anesthesia or sedation. No ID problems. HIs first colonoscopy at age 49 was negative and there is no known FHX of crc or polyps. Orders: Orders Colonoscopy - GI Use Only Today J45.20 - Mild intermittent asthma, uncomplicated, Z01.818 - Encounter for other preprocedural examination Medications: New peg 3350-electrolytes 236-22.74-6.74 -5.86 gram (Golytely) until fecal effluent is clear; do not exceed a total volume of 2,000 mL 240 mL PO Q10M 4,000 mL 0RF 1 day Z12.11 - Encounter for screening for malignant neoplasm of colon bisacodyl (Dulcolax (bisacodyl)) 10 mg (2 x 5 mg) PO BEDTIME 2 days 4 tabs 0RF bisacodyl (Dulcolax (bisacodyl)) 10 mg (2 x 5 mg) PO BEDTIME 20 tabs 0RF 7 days Z12.11 - Encounter for screening for malignant neoplasm of colon Coding Level of Care Code Est Pt Level 4 (96664) Diagnoses Pre-op evaluation Z01.818 Mild intermittent asthma without complication J45.20 Asthma complication type: uncomplicated Asthma persistence: intermittent Asthma severity: mild Time Spent (min) 35
== END 2024-07-10 15:54 | disposition home or self-care (01) ==
PROVIDERS: PCP Internal Medicine; Visit Provider Nurse Practitioner
DX: Z01.818 Encounter for other preprocedural examination (principal); Z12.11 Encounter for screening for malignant neoplasm of colon; J45.20 Mild intermittent asthma, uncomplicated
CPT/HCPCS: 99024

== ENCOUNTER → 2024-07-10 14:48 | Outpatient (BNVA) | payer MEDICARE, SELFPAY | PROVIDERS: PCP Internal Medicine; Visit Provider Nurse Practitioner | DX: Z01.818 Encounter for other preprocedural examination (principal); J45.20 Mild intermittent asthma, uncomplicated | CPT/HCPCS: 99212 ==

== ENCOUNTER 2024-07-13 08:48 | Outpatient (REF) | payer MEDICARE, SELFPAY ==
[2024-07-13 09:41] LABS: Basophils Percent Auto 0.7 % (0-2); Eosinophils Absolute Auto 1.6 X10*3/uL (0.0-0.4); Eosinophils Percent Auto 27.2 % (0-4); Hematocrit 40.7 % (42.0-52.0); Hemoglobin 14.1 g/dl (14.0-18.0); Imm Gran Abs Auto 0.01 X10*3/uL (0.00-0.03); Imm Gran Pct Auto 0.2 % (0.0-0.4); Lymphocytes Absolute Auto 1.1 X10*3/uL (1.2-4.9); Lymphocytes Percent Auto 17.7 % (20-40); MANUAL DIFF FLAG SCAN; Mean Corpuscular HGB Conc 34.6 g/dl (31.0-36.0); Mean Corpuscular Hemoglobin 32.6 pg (27.0-33.0); Mean Corpuscular Volume 94.2 fL (80.0-98.0); Mean Platelet Volume 9.4 fL (9.4-12.4); Monocytes Absolute Auto 0.4 X10*3/uL (0.1-1.2); Monocytes Percent Auto 7.2 % (2-11); Neutrophils Absolute Auto 2.8 x10*3/uL (2.0-8.3); Platelet Count 146 X10*3/uL (160-400); Red Blood Count 4.32 X10*6/uL (4.60-5.80); Red Cell Distribution Width 13.5 % (11.0-16.0); SCAN SMEAR FLAG 1
[2024-07-13 09:59] LABS: Estimated Average Glucose 131 mg/dL; Hemoglobin A1C 162.5405 umol/L; Hemoglobin A1c % 6.2 % (<6.0); Total Hemoglobin (HGBA1C) 3717.6468 umol/L
[2024-07-13 10:15] LABS: SLIDE REVIEW VERIFIED
[2024-07-13 10:23] LABS: Alanine Aminotransferase 26 U/L (0-40); Albumin Level 4.2 g/dL (3.5-5.0); Alkaline Phosphatase 88 U/L (39-117); Anion Gap 7 (12-20); Aspartate Amino Transferase 24 U/L (5-37); Bilirubin Total 0.6 mg/dL (0.0-1.0); Blood Urea Nitrogen 21 mg/dL (9-16); Calcium 9.3 mg/dL (8.4-10.2); Carbon Dioxide 27 mmol/L (22-29); Chloride 111 mmol/L (96-108); Cholesterol 111 mg/dL (<200); Estimated Glomerular Filt Rate > 60; Glucose Random 124 mg/dL (60-115); HDL Cholesterol 30 mg/dL (>40); LDL Cholesterol Calculated 62 mg/dL (<100); Potassium 4.1 mmol/L (3.3-5.1); Sodium 141 mmol/L (135-145); Total Protein 7.7 g/dL (6.5-8.0); Triglycerides 99 mg/dL (<150)
[2024-07-13 10:27] LABS: Creatinine Urine 140.09 mg/dL; Microalbum/Creatinine Ratio Ur 5.7 ug/mg cr (<30)
[2024-07-13 10:46] LABS: Free T4 (Free Thyroxine) 0.69 ng/dL (0.71-1.85); Thyroid Stimulating Hormone 2.84 uIU/mL (0.32-4.0)
[2024-07-13 11:19] LABS: Folate 9.4 ng/mL (> or = 4.0); Vitamin B12 327 pg/mL (200-900)
== END 2024-07-13 08:49 | disposition home or self-care (01) ==
LOC: HO.LAB 08:48
PROVIDERS: PCP Internal Medicine; Visit Provider Internal Medicine
DX: E11.65 Type 2 diabetes mellitus with hyperglycemia (principal); E78.00 Pure hypercholesterolemia, unspecified; Z12.5 Encounter for screening for malignant neoplasm of prostate
CPT/HCPCS: 36415; 80053; 80061; 82043; 82570; 82607; 82746; 83036; 84153; 84439; 84443; 85025

== ENCOUNTER 2024-07-16 14:43 | Outpatient (AMB) | payer MEDICARE, SELFPAY ==
--- NOTE | 2024-07-16 15:04 | MHC.PC.OV ---
Vital Signs 07/16/24 15:05 Height 5 ft 3 in Weight 161 lb 4 oz BMI 28.6 BP 120/66 Blood Pressure Location Lt brachial Position Sitting Pulse 81 Pulse Source Pulse Oximeter Temp 96.9 F Temp Source Skin Pulse Oximetry (%) 96 Oxygen Delivery Method Room Air Intake Visit Reasons: DM Intake Note: Patient is here to follow up on DM. Sole Skiver Required: No Forming Department Supervisor: Not Required per policy Accompanied by: Self / Same As Patient Allergies lisinopril Allergy (Intermediate, Verified 07/16/24 15:05) Angioedema metformin Adverse Reaction (Intermediate, Verified 07/16/24 15:05) abd pain Tobacco use date assessed: 07/16/24 Fall risk assessment: No Falls in past year Last assessed Fall Risk: 07/16/24 Dental Screening Dental Screen Date: 07/16/24 Did you have a dental visit in the last 12 months?: Yes Did you have a dental problem in the last 6 months where you did not have access to dental care?: No Was dental information given to patient?: Patient has dentist HPI DM HPI Details The patient is a 64-year-old male presenting with a wellness visit. He has a history of essential hypertension, which is currently well controlled, as per the recent measurements reported during the visit. The patient has type 2 diabetes mellitus, with improved glycemic control noted; his hemoglobin A1c has decreased from 6.6% to 6.2% since the last visit. The patient's blood glucose was measured at 124 mg/dL, and he is advised to maintain his current lifestyle changes. He also has a history of dyslipidemia; recent lipid panel results show an LDL cholesterol level at 62 mg/dL, which is below the target of 70 mg/dL. The patient's platelet count was noted to be slightly low, a recurrent finding, but not low enough to require intervention. He denies any symptoms related to thrombocytopenia. His liver and kidney functions are stable, and other parameters such as folic acid and thyroid levels are within normal limits. The patient?s current weight is on a downward trend, indicating positive lifestyle changes, likely contributing to his improved metabolic parameters. He is compliant with his inhaler therapy for respiratory issues, specifically using Brio daily, which is helping maintain good respiratory status. The patient denies chest pain, continues annual cardiology follow-ups, and reports no recent significant cardiovascular symptoms. His prostate-specific antigen is within normal limits, and he has no abdominal or bowel issues. The patient's vaccination status is current, acknowledging receipt of the influenza vaccine in April. [facility] Medical History (Updated 07/16/24 @ 15:27 by Jai Sams MD) CAD (coronary artery disease) Obesity (BMI 30-39.9) Colon cancer screening CVA (cerebral vascular accident) Annual physical exam Laryngitis Diverticulosis of colon Medicare annual wellness visit, subsequent TSH elevation On beta cm at home Preop exam for internal medicine Encounter for screening colonoscopy Balanitis Hypertension Hypertriglyceridemia GERD (gastroesophageal reflux disease) Asthma Fatty liver Surgical History History of colonoscopy Status post cardiac catheterization Family History Father Myocardial infarction Diabetes Mother Diabetes Skin cancer Social History Housing: Apartment Alcohol intake: current Alcohol intake frequency: holidays/special occasions only Comment: once q 2 week 2-3 drinks Patient Tobacco Use Status: Never used Tobacco Tobacco use type: Cigarette e-Cigarette/Vaping Use: Never Used Second Hand Smoke Exposure: No service: No Current occupational status: disabled Current occupational exposures/hazards: No Cognitive needs: No Hearing needs: No Vision needs: Yes (Glasses) Questionnaire PHQ-9 Over the last 2 weeks, how often have you been bothered by any of the following problems? 1. Little interest or pleasure in doing things: not at all 2. Feeling down, depressed, or hopeless: not at all 3. Trouble falling or staying asleep, or sleeping too much: not at all 4. Feeling tired or having little energy: not at all 5. Poor appetite or overeating: not at all 6. Feeling bad about yourself - or that you are a failure or have let yourself or your family down: not at all 7. Trouble concentrating on things, such as reading the newspaper or watching television: not at all 8. Moving or speaking so slowly that other people could have noticed. Or the opposite - being so fidgety or restless that you have been moving around a lot more than usual: not at all 9. Thoughts that you would be better off or of hurting yourself in some way: not at all Total score: 0 Depression Screening Interpretation: Negative Depression Screening Done: Yes Source: Developed by Drs. Haseeb Liang, Mariel Dumont, Almas Mccloud and colleagues, with an educational lora from [employer]. Thrive Questionnaire Date Thrive assessed: 07/16/24 I am a: Patient What is your living situation today?: I have a steady place to live Within the past 12 months, did the food you bought not last and you didn't have the money to get more?: Never true Within the past 12 months, did you worry whether your food would run out before you got money to buy more?: Never true Do you have trouble paying for medicines?: No Do you have trouble getting transportation to medical appointments?: No Do you have trouble paying your heating and electricity bill?: No Do you have trouble taking care of your child, family member or friend?: No Do you have trouble with day-to-day activities such as bathing, preparing meals, shopping, managing finances, etc.?: No Are you currently unemployed and looking for a job?: No Please select the resources that you would like help with: None Currently or been in a relationship where the following occur: No concerns reported THRIVE Score: 0 AUDIT C Alcohol Use Questionnaire (AUDIT-C) 1. How often do you have a drink containing alcohol?: Monthly or less 2. How many drinks containing alcohol do you have on a typical day when you are drinking?: 1 or 2 3. How often do you have six or more drinks on one occasion?: Monthly Total Score: 3 KENY-7 AMB Questionnaire KENY-7 Date KENY - 7 assessed: 07/16/24 Feeling nervous, anxious, or on edge: 0 = Not at all Not being able to stop or control worryin = Not at all Worrying too much about different things: 0 = Not at all Trouble relaxin = Not at all Being so restless that it is hard to sit still: 0 = Not at all Becoming easily annoyed or irritable: 0 = Not at all Feeling afraid as if something awful might happen: 0 = Not at all Total KENY-7 score (0-4 normal; 5-9 mild; 10-14 moderate; 15-21 severe): 0 Source: Developed by Drs. Haseeb Liang, Mariel Dumont, Almas Mccloud and colleagues, with an educational lora from [employer]. Physical exam (Primary Care) Vital Signs: Last Vital Signs Temp 96.9 F 07/16/24 15:05 Pulse 81 07/16/24 15:05 BP 120/66 07/16/24 15:05 Pulse Ox 96 07/16/24 15:05 Oxygen Delivery Method Room Air 07/16/24 15:05 BMI result Body Mass Index 28.6 Tobacco/Smoking Status: Tobacco use Status Tobacco use date assessed 07/16/24 07/16/24 15:09 Patient Tobacco Use Status Never used Tobacco 07/16/24 15:09 Tobacco use type Cigarette 07/16/24 15:09 e-Cigarette/Vaping Use Never Used 07/16/24 15:09 PHQ-9: PHQ-9 Score PHQ-9: Total score 0 07/16/24 15:09 Depression Screening Interpretation: Negative Thrive Assessment: Date of Thrive Assessment Date Thrive assessed 07/16/24 07/16/24 15:09 Currently or been in a relationship where the following occur: No concerns reported Const General: alert; No acute distress Eyes Conjunctivae: conjunctivae normal Resp Auscultation: clear to auscultation bilaterally Cardio Rate: regular rate Rhythm: regular rhythm GI Inspection: Yes normal to inspection Extrem General: Yes normal to inspection and No edema Coding Level of Care Code Est Pt Level 4 (52846) Complex EM visit Add On G2211 Diagnoses Type 2 diabetes mellitus with hyperglycemia, without long-term current use of insulin E11.65 Diabetes mellitus mcfp insulin use: without mcfp use Hypercholesterolemia E78.00 Essential hypertension I10 Hypertension type: essential hypertension Mild intermittent asthma without complication J45.20 Asthma severity: mild Asthma persistence: intermittent Asthma complication type: uncomplicated GERD (gastroesophageal reflux disease) K21.9 Overweight (BMI 25.0-29.9) E66.3 Coronary artery disease of [place] artery of [place] heart with stable angina pectoris I25.118 Coronary Disease-Associated Artery/Lesion type: [place] artery [place] vs. transplanted heart: [place] heart Associated angina: with stable angina Assessment & Plan Assessment & Plan (1) Type 2 diabetes mellitus with hyperglycemia: Comment: [facility] 02/2023 Code(s): E11.65 - Type 2 diabetes mellitus with hyperglycemia Category: Medical Qualifiers: Diabetes mellitus terminal clerk insulin use: without terminal clerk use Qualified Code(s): E11.65 - Type 2 diabetes mellitus with hyperglycemia (2) Hypercholesterolemia: Code(s): E78.00 - Pure hypercholesterolemia, unspecified Category: Medical (3) Hypertension: Code(s): I10 - Essential (primary) hypertension Category: Medical Qualifiers: Hypertension type: essential hypertension Qualified Code(s): I10 - Essential (primary) hypertension (4) Asthma: Comment: Dr. Pendleton Pulmonogy Code(s): J45.909 - Unspecified asthma, uncomplicated Category: Medical Qualifiers: Asthma severity: mild Asthma persistence: intermittent Asthma complication type: uncomplicated Qualified Code(s): J45.20 - Mild intermittent asthma, uncomplicated (5) GERD (gastroesophageal reflux disease): Code(s): K21.9 - Gastro-esophageal reflux disease without esophagitis Category: Medical (6) Overweight (BMI 25.0-29.9): Code(s): E66.3 - Overweight Category: Medical (7) CAD (coronary artery disease): Comment: Ancelmo Murcia- [phone] [facility] Code(s): I25.10 - Atherosclerotic heart disease of [place] coronary artery without angina pectoris Category: Medical Qualifiers: Coronary Disease-Associated Artery/Lesion type: [place] artery [place] vs. transplanted heart: [place] heart Associated angina: with stable angina Qualified Code(s): I25.118 - Atherosclerotic heart disease of [place] coronary artery with other forms of angina pectoris Plan - Continue with current antihypertensive and diabetic management, ensuring compliance with medications and lifestyle modifications. - Monitor platelet count with routine blood work, considering stable low count without intervention at this time. - Maintain current management for dyslipidemia with continued focus on dietary modifications and physical activity. - Reinforce avoidance of exposure to large crowds due to heightened risk of infections like COVID-19 and RSV. - Encourage adherence to respiratory medication regimen and advise rinsing mouth post-inhaler use to prevent oral complications. - Schedule routine follow-up in six months for wellness and diabetes management. - Remain vigilant about signs of illness and maintain precautions to prevent infections, including hand hygiene and awareness of norovirus transmission. - Follow-up with upcoming ophthalmology appointment at [facility] for routine eye care. - Reinforce importance of maintaining vaccinations and educate on vaccine efficacy limits, suggesting ongoing preventive health measures.
[2024-07-16 15:05] VITALS: BP 120/66; PULSE 81; TEMP 36.1; O2SAT 96; BMI 28.6
== END 2024-07-16 15:42 | disposition home or self-care (01) ==
PROVIDERS: PCP Internal Medicine; Visit Provider Internal Medicine
DX: E11.65 Type 2 diabetes mellitus with hyperglycemia (principal); E78.00 Pure hypercholesterolemia, unspecified; I10 Essential (primary) hypertension; J45.20 Mild intermittent asthma, uncomplicated; K21.9 Gastro-esophageal reflux disease without esophagitis; E66.3 Overweight; I25.118 Atherosclerotic heart disease of native coronary artery with other forms of angina pectoris

== ENCOUNTER → 2024-07-16 14:43 | Outpatient (BNVA) | payer MEDICARE, SELFPAY | PROVIDERS: PCP Internal Medicine; Visit Provider Internal Medicine | DX: E11.65 Type 2 diabetes mellitus with hyperglycemia (principal); E78.00 Pure hypercholesterolemia, unspecified; I10 Essential (primary) hypertension; J45.20 Mild intermittent asthma, uncomplicated; K21.9 Gastro-esophageal reflux disease without esophagitis; E66.3 Overweight; I25.118 Atherosclerotic heart disease of native coronary artery with other forms of angina pectoris | CPT/HCPCS: 99212 ==

== ENCOUNTER 2024-09-20 09:20 | Outpatient (AMB) | payer MEDICARE, SELFPAY ==
[2024-09-20 09:29] VITALS: BP 120/80; PULSE 73; TEMP 36.4; O2SAT 98; BMI 28.9
--- NOTE | 2024-09-20 09:29 | MHC.PC.OV ---
Vital Signs 09/20/24 09:29 Height 5 ft 3 in Weight 163 lb BMI 28.9 BP 120/80 Blood Pressure Location Lt brachial Position Sitting Pulse 73 Pulse Source Pulse Oximeter Temp 97.5 F Temp Source Temporal Artery Scan Pulse Oximetry (%) 98 Oxygen Delivery Method Room Air Intake Visit Reasons: [facility] 09/12 Dizziness/posterior hypertension Intake Note: Patient is here to follow-up after a visit the emergency department at [facility] on 09/12/24 [employer] Tally Clerk Required: No Superintendent Service: Present Accompanied by: niece Allergies lisinopril Allergy (Intermediate, Verified 09/20/24 09:56) Angioedema metformin Adverse Reaction (Intermediate, Verified 09/20/24 09:56) abd pain Medication List - Last Reconciled 09/20/24 by Ruth Ann Bustos PA-C albuterol sulfate 90 mcg/actuation 2 puffs inhalation Q6H PRN aspirin (Adult Low Dose Aspirin) 81 mg PO DAILY bisacodyl (Dulcolax (bisacodyl)) 10 mg (2 x 5 mg) PO BEDTIME 7 days blood sugar diagnostic (OneTouch Ultra Test strips) As directed check the blood sugar once a day blood sugar diagnostic (FreeStyle Lite Strips) As directed check the BS QD blood-glucose meter (FreeStyle Lite Meter kit) As directed blood-glucose meter (OneTouch Ultra2 Meter) As directed check blood sugar once a day [DEHUMIDIFIER/VAPORIZER As directed] empagliflozin 25 mg PO DAILY 30 days fluticasone furoate-vilanterol 200-25 mcg/dose (Breo Ellipta) 1 inh inhalation DAILY lancets (Tissue GenesisTouch UltraSoft 2 Lancet) As directed check blood sugar once a day lancets (FreeStyle Lancets) As directed check BS QD metoprolol succinate ER 25 mg PO DAILY 90 days peg 3350-electrolytes 236-22.74-6.74 -5.86 gram (Golytely) 240 mL PO Q10M 1 day rosuvastatin 40 mg PO DAILY zafirlukast 20 mg PO BID Tobacco use date assessed: 09/20/24 Fall risk assessment: No Falls in past year Last assessed Fall Risk: 09/20/24 Dental Screening Dental Screen Date: 09/20/24 Did you have a dental visit in the last 12 months?: Yes Did you have a dental problem in the last 6 months where you did not have access to dental care?: No Was dental information given to patient?: Patient has dentist HPI [facility] 09/12 Dizziness/posterior hypertension HPI Details 64-year-old male with past medical history of hypertension, asthma, diabetes mellitus, hypercholesterolemia, GERD, coronary artery disease last seen 06/2024 coming in for hospital discharge follow up.?In review of the notes, patient was seen in [facility] ED 09/12/2024 for dizziness EKG in blood work unremarkable head CT and CTA of head and neck unremarkable. Suspected to be ortho static IV was administered with improvement and patient was discharged home. Presenting with dizziness and elevated blood pressure. Episodes of dizziness accompanied by pallor began Tuesday; symptoms persisted over the weekend. An urgent care visit was prompted by high blood pressure readings (200s) and symptom persistence. Emergency care noted prior TIA and possible dehydration contributing to symptoms, with improvement post-IV fluids. Current symptoms have decreased, with prior dehydration and insufficient hydration identified as contributing factors. Patient has been having normal blood pressures and no dizziness since his initial ED visit. [facility] Medical History CAD (coronary artery disease) Obesity (BMI 30-39.9) Colon cancer screening CVA (cerebral vascular accident) Annual physical exam Laryngitis Diverticulosis of colon Medicare annual wellness visit, subsequent TSH elevation On beta cm at home Preop exam for internal medicine Encounter for screening colonoscopy Balanitis Hypertension Hypertriglyceridemia GERD (gastroesophageal reflux disease) Asthma Fatty liver Surgical History History of mandibular surgery History of colonoscopy Status post cardiac catheterization Family History Father Myocardial infarction Diabetes Mother Diabetes Skin cancer Social History Housing: Apartment Alcohol intake: current Alcohol intake frequency: holidays/special occasions only Comment: once q 2 week 2-3 drinks Patient Tobacco Use Status: Never used Tobacco Tobacco use type: Cigarette e-Cigarette/Vaping Use: Never Used Second Hand Smoke Exposure: No service: No Current occupational status: disabled Current occupational exposures/hazards: No Cognitive needs: No Hearing needs: No Vision needs: Yes (Glasses) Questionnaire PHQ-9 Over the last 2 weeks, how often have you been bothered by any of the following problems? 1. Little interest or pleasure in doing things: not at all 2. Feeling down, depressed, or hopeless: not at all 3. Trouble falling or staying asleep, or sleeping too much: not at all 4. Feeling tired or having little energy: not at all 5. Poor appetite or overeating: not at all 6. Feeling bad about yourself - or that you are a failure or have let yourself or your family down: not at all 7. Trouble concentrating on things, such as reading the newspaper or watching television: not at all 8. Moving or speaking so slowly that other people could have noticed. Or the opposite - being so fidgety or restless that you have been moving around a lot more than usual: not at all 9. Thoughts that you would be better off or of hurting yourself in some way: not at all Total score: 0 Depression Screening Interpretation: Negative Depression Screening Done: Yes Source: Developed by Drs. Haseeb Liang, Mariel Dumont, Almas Mccloud and colleagues, with an educational lora from [employer]. Thrive Questionnaire Date Thrive assessed: 09/20/24 I am a: Patient What is your living situation today?: I have a steady place to live Within the past 12 months, did the food you bought not last and you didn't have the money to get more?: Never true Within the past 12 months, did you worry whether your food would run out before you got money to buy more?: Never true Do you have trouble paying for medicines?: No Do you have trouble getting transportation to medical appointments?: No Do you have trouble paying your heating and electricity bill?: No Do you have trouble taking care of your child, family member or friend?: No Do you have trouble with day-to-day activities such as bathing, preparing meals, shopping, managing finances, etc.?: No Are you currently unemployed and looking for a job?: No Please select the resources that you would like help with: None Currently or been in a relationship where the following occur: No concerns reported THRIVE Score: 0 AUDIT C Alcohol Use Questionnaire (AUDIT-C) 1. How often do you have a drink containing alcohol?: Monthly or less 2. How many drinks containing alcohol do you have on a typical day when you are drinking?: 1 or 2 3. How often do you have six or more drinks on one occasion?: Monthly Total Score: 3 KENY-7 AMB Questionnaire KENY-7 Date KENY - 7 assessed: 09/20/24 Feeling nervous, anxious, or on edge: 0 = Not at all Not being able to stop or control worryin = Not at all Worrying too much about different things: 0 = Not at all Trouble relaxin = Not at all Being so restless that it is hard to sit still: 0 = Not at all Becoming easily annoyed or irritable: 0 = Not at all Feeling afraid as if something awful might happen: 0 = Not at all Total KENY-7 score (0-4 normal; 5-9 mild; 10-14 moderate; 15-21 severe): 0 Source: Developed by Drs. Haseeb Liang, Mariel Dumont, Almas Mccloud and colleagues, with an educational lora from [employer]. Review of Systems Const Denies fever(s) and Denies headache(s) Eyes Reports no additional complaints ENT Denies dizziness and Denies headache(s) Card Denies chest pain, Denies syncope, Denies irregular heart rhythm, Denies lightheadedness and Denies dyspnea Resp Denies dyspnea GI Reports no additional complaints, Denies nausea and Denies vomiting Reports no additional complaints Musc Reports no additional complaints and Denies abnormal gait Skin/Breast Reports system reviewed and no additional complaints, except as documented Neuro Denies abnormal gait, Denies dizziness, Denies syncope and Denies headache(s) Psych Reports no additional complaints Physical exam (Primary Care) Vital Signs: Last Vital Signs Temp 97.5 F 09/20/24 09:29 Pulse 73 09/20/24 09:29 BP 120/80 09/20/24 09:29 Pulse Ox 98 09/20/24 09:29 Oxygen Delivery Method Room Air 09/20/24 09:29 BMI result Body Mass Index 28.9 Tobacco/Smoking Status: Tobacco use Status Tobacco use date assessed 09/20/24 09/20/24 09:42 Patient Tobacco Use Status Never used Tobacco 09/20/24 09:42 Tobacco use type Cigarette 09/20/24 09:42 e-Cigarette/Vaping Use Never Used 09/20/24 09:42 PHQ-9: PHQ-9 Score PHQ-9: Total score 0 09/20/24 09:50 Depression Screening Interpretation: Negative Thrive Assessment: Date of Thrive Assessment Date Thrive assessed 09/20/24 09/20/24 09:42 Currently or been in a relationship where the following occur: No concerns reported Const General: cooperative, healthy appearing, comfortable and no acute distress Orientation/consciousness: patient oriented x3 HENMT Head: Yes normocephalic Ears: hearing grossly normal bilaterally General nose exam: Normal external nose present Eyes General: appearance normal, both eyes and all related structures Conjunctivae: conjunctivae normal Neck Neck: Yes full ROM and Yes no lymphadenopathy Resp Effort & Inspection: normal respiratory effort Auscultation: clear to auscultation bilaterally, no crackles, no rales, no rhonchi and no wheezes Cardio Rate: regular rate Rhythm: regular rhythm Skin General skin exam: no rashes or lesions noted Neuro General: patient oriented x3 Gait exam (Neuro): Normal gait present Extrem General: Yes normal to inspection, Yes full ROM and No edema Psych Affect: normal affect Attitude: cooperative Insight: Good insight present (Psych) Judgement: Good judgement present (Psych) Coding Level of Care Code Est Pt Level 3 (69528) Diagnoses Overweight (BMI 25.0-29.9) E66.3 GERD (gastroesophageal reflux disease) K21.9 Type 2 diabetes mellitus with hyperglycemia, without long-term current use of insulin E11.65 Diabetes mellitus terminal press operator insulin use: without terminal press operator use Essential hypertension I10 Hypertension type: essential hypertension Dizziness R42 Assessment & Plan Assessment & Plan (1) Overweight (BMI 25.0-29.9): Code(s): E66.3 - Overweight Category: Medical Plan: Healthy diet and regular exercise is encouraged. (2) GERD (gastroesophageal reflux disease): Code(s): K21.9 - Gastro-esophageal reflux disease without esophagitis Category: Medical Plan: Avoid trigger foods such as citrus, tomato products, soda, caffeine, spicy foods and other foods that may be irritating to your stomach. Avoid laying flat 3-4 hours after eating and elevate the head of the bed 30 degrees to prevent acid from moving into the esophagus. (3) Type 2 diabetes mellitus with hyperglycemia: Comment: [facility] 02/2023 Code(s): E11.65 - Type 2 diabetes mellitus with hyperglycemia Category: Medical Qualifiers: Diabetes mellitus alf insulin use: without terminal press operator use Qualified Code(s): E11.65 - Type 2 diabetes mellitus with hyperglycemia Plan: Decrease the amount of carbohydrates such as pasta, bread, rice, and potatoes and limit the amount of sweets. Although fruits are generally healthy they should be eaten in moderation as they are still high in sugar. (4) Hypertension: Code(s): I10 - Essential (primary) hypertension Category: Medical Qualifiers: Hypertension type: essential hypertension Qualified Code(s): I10 - Essential (primary) hypertension Plan: Continue on current blood pressure medication. Avoid salt intake and encourage healthy diet and regular exercise. (5) Dizziness: Code(s): R42 - Dizziness and giddiness Category: Medical Plan: The focus is on managing dizziness and high blood pressure due to dehydration and orthostatic changes. Hydration was emphasized, advising increased water intake and careful monitoring of salt intake. Further nephrology evaluation will be considered if symptoms persist. Regular cardiology review continues with medication adherence advised to manage symptom variability. The possible connection between metoprolol and orthostatic symptoms was discussed, recommending ongoing monitoring and follow-up as necessary. Plan This note was constructed using voice recognition software. While every effort has been made to ensure accuracy and caustic purification operator, still areas may have been included sometimes these areas may affect the content or meeting of the given symptoms. Total time spent caring for the patient today was 30 minutes. This includes time spent before the visit reviewing the chart, time spent during the visit, and time spent after the visit and documentation. Patient was informed and verbally consented to the use of an ambient scribe for clinic note documentation during this visit.
== END 2024-09-20 10:19 | disposition home or self-care (01) ==
LOC: HO.HMCH 09:21
PROVIDERS: PCP Internal Medicine
DX: E66.3 Overweight (principal); K21.9 Gastro-esophageal reflux disease without esophagitis; E11.65 Type 2 diabetes mellitus with hyperglycemia; I10 Essential (primary) hypertension; R42 Dizziness and giddiness

== ENCOUNTER → 2024-09-20 09:20 | Outpatient (BNVA) | payer MEDICARE, SELFPAY | PROVIDERS: PCP Internal Medicine | DX: E66.3 Overweight (principal); K21.9 Gastro-esophageal reflux disease without esophagitis; E11.65 Type 2 diabetes mellitus with hyperglycemia; I10 Essential (primary) hypertension; R42 Dizziness and giddiness | CPT/HCPCS: 99212 ==

== ENCOUNTER 2025-01-14 09:17 | Outpatient (AMB) | payer MEDICARE, SELFPAY ==
--- NOTE | 2025-01-14 09:20 | A.OFFPC_ITS ---
Vital Signs 01/14/25 09:22 Height 5 ft 3 in Weight 162 lb 6 oz BMI 28.8 BP 116/84 Blood Pressure Location Lt brachial Position Sitting Pulse 73 Pulse Source Pulse Oximeter Temp 97.5 F Temp Source Temporal Artery Scan Pulse Oximetry (%) 96 Oxygen Delivery Method Room Air Intake Visit Reasons: DM Allergies lisinopril Allergy (Intermediate, Verified 01/14/25 09:25) Angioedema metformin Adverse Reaction (Intermediate, Verified 01/14/25 09:25) abd pain Medication List - Last Reconciled 01/14/25 by Jai Sams MD albuterol sulfate 90 mcg/actuation 2 puffs inhalation Q6H PRN aspirin (Adult Low Dose Aspirin) 81 mg PO DAILY bisacodyl (Dulcolax (bisacodyl)) 10 mg (2 x 5 mg) PO BEDTIME 7 days blood sugar diagnostic (OneTouch Ultra Test strips) As directed check the blood sugar once a day blood sugar diagnostic (FreeStyle Lite Strips) As directed check the BS QD blood-glucose meter (FreeStyle Lite Meter kit) As directed blood-glucose meter (OneTouch Ultra2 Meter) As directed check blood sugar once a day [DEHUMIDIFIER/VAPORIZER As directed] empagliflozin 25 mg PO DAILY 30 days fluticasone furoate-vilanterol 200-25 mcg/dose (Breo Ellipta) 1 inh inhalation DAILY lancets (NanoBioTouch UltraSoft 2 Lancet) As directed check blood sugar once a day lancets (FreeStyle Lancets) As directed check BS QD metoprolol succinate ER 25 mg PO DAILY 90 days peg 3350-electrolytes 236-22.74-6.74 -5.86 gram (Golytely) 240 mL PO Q10M 1 day rosuvastatin 40 mg PO DAILY zafirlukast 20 mg PO BID Tobacco use date assessed: 01/14/25 Fall risk assessment: No Falls in past year Last assessed Fall Risk: 01/14/25 Dental Screening Dental Screen Date: 01/14/25 Did you have a dental visit in the last 12 months?: Yes Did you have a dental problem in the last 6 months where you did not have access to dental care?: No Was dental information given to patient?: Patient has dentist [facility] Medical History CAD (coronary artery disease) Obesity (BMI 30-39.9) Colon cancer screening CVA (cerebral vascular accident) Annual physical exam Laryngitis Diverticulosis of colon Medicare annual wellness visit, subsequent TSH elevation On beta cm at home Preop exam for internal medicine Encounter for screening colonoscopy Balanitis Hypertension Hypertriglyceridemia GERD (gastroesophageal reflux disease) Asthma Fatty liver Surgical History History of mandibular surgery History of colonoscopy Status post cardiac catheterization Family History Father Myocardial infarction Diabetes Mother Diabetes Skin cancer Social History Housing: Apartment Alcohol intake: current Alcohol intake frequency: holidays/special occasions only Comment: once q 2 week 2-3 drinks Patient Tobacco Use Status: Never used Tobacco Tobacco use type: Cigarette e-Cigarette/Vaping Use: Never Used Second Hand Smoke Exposure: No service: No Current occupational status: disabled Current occupational exposures/hazards: No Cognitive needs: No Hearing needs: No Vision needs: Yes (Glasses) Questionnaire PHQ-9 Over the last 2 weeks, how often have you been bothered by any of the following problems? 1. Little interest or pleasure in doing things: not at all 2. Feeling down, depressed, or hopeless: not at all 3. Trouble falling or staying asleep, or sleeping too much: not at all 4. Feeling tired or having little energy: not at all 5. Poor appetite or overeating: not at all 6. Feeling bad about yourself - or that you are a failure or have let yourself or your family down: not at all 7. Trouble concentrating on things, such as reading the newspaper or watching television: not at all 8. Moving or speaking so slowly that other people could have noticed. Or the opposite - being so fidgety or restless that you have been moving around a lot more than usual: not at all 9. Thoughts that you would be better off or of hurting yourself in some way: not at all Total score: 0 Source: Developed by Drs. Haseeb Liang, Mariel Dumont, Almas Mccloud and colleagues, with an educational lora from [employer]. Thrive Questionnaire Date Thrive assessed: 01/14/25 I am a: Patient What is your living situation today?: I have a steady place to live Within the past 12 months, did the food you bought not last and you didn't have the money to get more?: I choose not to answer this question Within the past 12 months, did you worry whether your food would run out before you got money to buy more?: I choose not to answer this question Do you have trouble paying for medicines?: No Do you have trouble getting transportation to medical appointments?: No Do you have trouble paying your heating and electricity bill?: No Do you have trouble taking care of your child, family member or friend?: No Do you have trouble with day-to-day activities such as bathing, preparing meals, shopping, managing finances, etc.?: No Are you currently unemployed and looking for a job?: I choose not to answer this question Are you interested in more education?: I choose not to answer this question Please select the resources that you would like help with: None THRIVE Score: 0 AUDIT C Alcohol Use Questionnaire (AUDIT-C) 1. How often do you have a drink containing alcohol?: Monthly or less 2. How many drinks containing alcohol do you have on a typical day when you are drinking?: 1 or 2 Total Score: 1 KENY-7 AMB Questionnaire KENY-7 Date KENY - 7 assessed: 09/20/24 Feeling nervous, anxious, or on edge: 0 = Not at all Not being able to stop or control worryin = Not at all Worrying too much about different things: 0 = Not at all Trouble relaxin = Not at all Being so restless that it is hard to sit still: 0 = Not at all Becoming easily annoyed or irritable: 0 = Not at all Feeling afraid as if something awful might happen: 0 = Not at all Total KENY-7 score (0-4 normal; 5-9 mild; 10-14 moderate; 15-21 severe): 0 Source: Developed by Drs. Haseeb Liang, Mariel Dumont, Almas Mccloud and colleagues, with an educational lora from [employer]. Physical exam (Primary Care) Vital Signs: Last Vital Signs Temp 97.5 F 01/14/25 09:22 Pulse 73 01/14/25 09:22 BP 116/84 01/14/25 09:22 Pulse Ox 96 01/14/25 09:22 Oxygen Delivery Method Room Air 01/14/25 09:22 BMI result Body Mass Index 28.8 Tobacco/Smoking Status: Tobacco use Status Tobacco use date assessed 01/14/25 01/14/25 09:26 Patient Tobacco Use Status Never used Tobacco 01/14/25 09:26 Tobacco use type Cigarette 01/14/25 09:26 e-Cigarette/Vaping Use Never Used 01/14/25 09:26 PHQ-9: PHQ-9 Score PHQ-9: Total score 0 01/14/25 09:26 Thrive Assessment: Date of Thrive Assessment Date Thrive assessed 01/14/25 01/14/25 09:26 Const General: alert; No acute distress Eyes Conjunctivae: conjunctivae normal Resp Auscultation: clear to auscultation bilaterally Cardio Rate: regular rate Rhythm: regular rhythm GI Inspection: Yes normal to inspection Extrem General: Yes normal to inspection and No edema Results AMB Hemoglobin A1c AMB Hemoglobin A1c 6.3 % Last Edit by Kat Mahajan CMA on 01/14/25 09:32 Results Reviewed Results Reviewed: Laboratory Last Values Hgb A1c (Clinic) 6.3 % (4.0-6.0) H 01/14/25 09:26 Coding Level of Care Code Est Pt Level 4 (00291) Complex EM visit Add On G2211 Diagnoses Type 2 diabetes mellitus with hyperglycemia, without long-term current use of insulin E11.65 Diabetes mellitus mcc insulin use: without mcc use Essential hypertension I10 Hypertension type: essential hypertension Hypercholesterolemia E78.00 Coronary artery disease of [place] artery of [place] heart with stable angina pectoris I25.118 Associated angina: with stable angina Coronary Disease-Associated Artery/Lesion type: [place] artery [place] vs. transplanted heart: [place] heart Overweight (BMI 25.0-29.9) E66.3 GERD (gastroesophageal reflux disease) K21.9 Mild intermittent asthma without complication J45.20 Asthma complication type: uncomplicated Asthma persistence: intermittent Asthma severity: mild Colon cancer screening Z12.11 Assessment & Plan Assessment & Plan (1) Type 2 diabetes mellitus with hyperglycemia: Comment: [facility] 02/2023 Code(s): E11.65 - Type 2 diabetes mellitus with hyperglycemia Category: Medical Qualifiers: Diabetes mellitus mcc insulin use: without mcc use Qualified Code(s): E11.65 - Type 2 diabetes mellitus with hyperglycemia Plan: Decrease the amount of carbohydrate intake, pasta, bread, rice and potatoes are all sugar and that is aside from all the sweet stuff, remember that fruits are good but they are Sweet also. Hemoglobin A1c goal of less than 6.5 patient on Jardiance 25 mg once a day (2) Hypertension: Code(s): I10 - Essential (primary) hypertension Category: Medical Qualifiers: Hypertension type: essential hypertension Qualified Code(s): I10 - Essential (primary) hypertension Plan: Continue with blood pressure medication. Decrease salt intake and exercise on metoprolol 25 mg once a day (3) Hypercholesterolemia: Code(s): E78.00 - Pure hypercholesterolemia, unspecified Category: Medical Plan: Avoid fried foods, chicken skin, eggs, butter margarine, pastries and meat. Be it pork or beef they have a lot of cholesterol was June 2024 last blood work rosuvastatin 40 mg once a day (4) CAD (coronary artery disease): Comment: Ancelmo Murcia- [id number] [facility] Code(s): I25.10 - Atherosclerotic heart disease of [place] coronary artery without angina pectoris Category: Medical Qualifiers: Associated angina: with stable angina Coronary Disease-Associated Artery/Lesion type: [place] artery [place] vs. transplanted heart: [place] heart Qualified Code(s): I25.118 - Atherosclerotic heart disease of [place] coronary artery with other forms of angina pectoris Plan: Control the cholesterol, weight, blood pressure, diabetes continue with aspirin 81 mg once a day metoprolol 25 mg once a day (5) Overweight (BMI 25.0-29.9): Code(s): E66.3 - Overweight Category: Medical Plan: Diet and exercise (6) GERD (gastroesophageal reflux disease): Code(s): K21.9 - Gastro-esophageal reflux disease without esophagitis Category: Medical Plan: Avoid the foods that causes that usually spicy foods, tomato products, juices, coffee, soda and foods that your sensitive to. After eating do not lie down, allow 3-4 hours before in lie down. And keep the head of bed above 30 degrees to avoid the acid from going up. (7) Asthma: Comment: Dr. Pendleton [facility] Code(s): J45.909 - Unspecified asthma, uncomplicated Category: Medical Qualifiers: Asthma complication type: uncomplicated Asthma persistence: intermittent Asthma severity: mild Qualified Code(s): J45.20 - Mild intermittent asthma, uncomplicated Plan: Patient on albuterol zafirlukast zafirlukast zafirlukast and Breo (8) Colon cancer screening: Comment: Dr. Cartagena 04/2022 1-2 years Code(s): Z12.11 - Encounter for screening for malignant neoplasm of colon Category: Medical Plan: Patient is reminded about colonoscopy Plan History of Present Illness The patient is a 64-year-old male presenting for a follow-up visit. The patient has a history of diabetes mellitus, which is currently controlled with a hemoglobin A1c of 6.2 as of June 2024. He is on Jardiance 25 mg once daily with a goal to maintain A1c below 6.5. Hypertension is managed with metoprolol 25 mg once daily, and the patient's blood pressure is reported to be stable. The patient has hypercholesterolemia, with an LDL level of 62 mg/dL as of June 2024, managed with rosuvastatin 40 mg once daily. The patient has a history of asthma, managed with albuterol and Breo, and is reminded to rinse his mouth after using Breo. The patient has gastroesophageal reflux disease (GERD) and coronary artery dise ase, for which he is on aspirin 81 mg once daily and metoprolol 25 mg once daily. Thrombocytopenia was noted in June 2024, but other blood parameters such as electrolytes and renal function were stable. Preventative care includes a reminder for a colonoscopy, which was last performed in 2021, with the next one scheduled around September. Health Maintenance - Vaccinations: Pneumonia, shingles, and tetanus vaccinations are up to date. - Screening: Colonoscopy reminder for September, last done in 2021. Social History Review of Systems Physical Exam - Respiratory: Auscultation performed with instruction to breathe in and out Results - Labs: Hemoglobin A1c 6.2% (June 2024), LDL 62 mg/dL (June 2024), no proteinuria, stable renal function, thrombocytopenia noted. Plan The patient's diabetes mellitus is being managed with Jardiance 25 mg once daily, aiming to keep the hemoglobin A1c below 6.5%. Hypertension is controlled with metoprolol 25 mg once daily, and the patient's blood pressure remains stable. For hypercholesterolemia, the patient is on rosuvastatin 40 mg once daily, with an LDL level of 62 mg/dL as of June 2024. Asthma management includes the use of albuterol and Breo, with a reminder to rinse the mouth after using Breo. The patient is advised to continue aspirin 81 mg once daily for coronary artery disease and to maintain a healthy lifestyle with diet and exercise. Preventative care includes a reminder for a colonoscopy, which was last performed in 2021, with the next one scheduled around September. Patient was informed and verbally consented to the use of an ambient scribe for clinic note documentation during this visit. Discussion Notes During the visit, I discussed the management of the patient's diabetes, hypertension, and hypercholesterolemia, emphasizing the importance of medication adherence and lifestyle modifications. We reviewed the need for regular follow- ups and the upcoming colonoscopy, ensuring the patient understands the schedule and preparation required. Patient Instructions - Continue taking Jardiance 25 mg daily for diabetes management. - Take metoprolol 25 mg daily for blood pressure control. - Continue rosuvastatin 40 mg daily for cholesterol management. - Use albuterol and Breo as prescribed for asthma, and rinse mouth after using Breo. - Take aspirin 81 mg daily for coronary artery disease. - Maintain a healthy lifestyle with diet and exercise. - Schedule and prepare for the upcoming colonoscopy in September. Orders: Orders AMB Hemoglobin A1c 6 Months Z13.9 - Encounter for screening, unspecified Complete Blood Count Auto Diff 6 Months E11. - Type 2 diabetes mellitus with hyperglycemia Comprehensive Met. Panel 6 Months . - Type 2 diabetes mellitus with hyperglycemia Thyroid Stimulating Hormone 6 Months E11. - Type 2 diabetes mellitus with hyperglycemia Prostate Specific Antigen Scr 6 Months E11.65 - Type 2 diabetes mellitus with hyperglycemia Microalbumin, Random (w Creat) 6 Months E11.65 - Type 2 diabetes mellitus with hyperglycemia Free T4 (Free Thyroxine) 6 Months E11.65 - Type 2 diabetes mellitus with hyperglycemia Lipid Panel 6 Months E11.65 - Type 2 diabetes mellitus with hyperglycemia, E78.00 - Pure hypercholesterolemia, unspecified Vitamin B12 and Folate 6 Months E11.65 - Type 2 diabetes mellitus with hyperglycemia Creatinine Urine 6 Months E11.65 - Type 2 diabetes mellitus with hyperglycemia Hemoglobin A1c 6 Months E11.65 - Type 2 diabetes mellitus with hyperglycemia
[2025-01-14 09:22] VITALS: BP 116/84; PULSE 73; TEMP 36.4; O2SAT 96; BMI 28.8
--- OUTSIDE RECORDS SUMMARY | 2025-01-14 09:41 | XMS_ITS | Clinical Summary ---
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 Active ticagrelor (BRILINTA) 90 mg Tab Take 90 mg by mouth 2 (two) times a day. Active aspirin 81 MG EC tablet Take 81 mg by mouth daily. Active metoprolol succinate (TOPROL-XL) 50 MG 24 hr tablet Take 50 mg by mouth daily. Active albuterol 90 mcg/actuation inhaler Inhale 2 puffs into the lungs every 4 (four) hours as needed for wheezing or shortness of breath/dyspnea . 1 Inhaler 11 1 Active BREO ELLIPTA 200-25 mcg/dose inhalerIndication s:Moderate persistent asthma without complication TAKE 1 PUFF BY MOUTH EVERY DAY 3 each 3 2 Active JARDIANCE 10 mg tablet 2 Active pioglitazone (ACTOS) 15 MG tablet 2 Active rosuvastatin (CRESTOR) 40 MG tablet Take 40 mg by mouth daily. 2 Active zafirlukast (ACCOLATE) 20 MG tablet TAKE 1 TABLET BY MOUTH TWICE A DAY 180 tablet 3 3 Active Immunizations Immunization Administration Dates Next Due Influenza Quadrivalent MDCK Preservative Free IM 04/30/2016 Influenza Quadrivalent Prese rvative Free IM 04/23/2020,03/22/2018,09/09/2017,02/11 Influenza Quadrivalent w/ Pr eservative IM 04/30/2019 Influenza Trivalent w/ Preservative IM 1 Pneumococcal polysaccharide PPSV23 03/04/2017, Tdap 04/25/2018,08/26/2010 Zoster recombinant 06/11/2020 Social History Tobacco Use Types Packs/Day Years Used Date Smoking Tobacco: Never Smokeless Tobacco: Never Education Answer Date Recorded Are you interested in more education? Not on jesus e 10/22/2022 Are you concerned about learning? Not on file 10/22/2022 No 10/22/2022 No 10/22/2022 Digital Access Answer Date Recorded No 11/20/2022 No 11/20/2022 No 11/20/2022 Reliable internet access at home? Not on file 11/20/2022 Device with a working camera? Not on file Sex and Gender Information Value Date Recorded Sex Assigned at Not on file Legal Sex Male 9:49 PM EDT Gender Identity Not on file Sexual Orientation Not on file Last Filed Vital Signs Vital Sign Reading Time Taken Comments Blood Pressure 118/70 03/30/2022 1:07 PM EDT Pulse 73 03/30/2022 1:07 PM EDT Temperature - - Respiratory Rate - - Oxygen Saturation 98% 03/30/2022 1:07 PM EDT Inhaled Oxygen Concentration - - Weight 81.2 kg (179 lb) 03/30/2022 1:07 PM EDT Height 160 cm (5' 2.99 ) 03/30/2022 1:07 PM EDT Body Mass Index 31.72 03/30/2022 1:07 PM EDT Plan of Treatment Health Maintenance Due Date Last Done Comments LIPID PANEL 1959 TSH LEVEL 1959 DEPRESSION SCREENING 1971 HEPATITIS C SCREENING 1977 HIV ONE-TIME SCREENING (18-6 5 YEARS) 1977 SCREENING FOR DIABETES 1994 COLOGUARD 2004 COLONOSCOPY 2004 COLORECTAL CANCER SCREENING 2004 FIT TEST 2004 FOBT 2004 SIGMOIDOSCOPY 2004 VIRTUAL COLONOSCOPY 2004 PNEUMOCOCCAL VACCINES (50+ years) (2 of 2 - PCV) 03/04/2018 03/04/2017, 09/09/2010 RSV VACCINE (1 - Risk 60-74 years 1-dose series) 2019 ZOSTER VACCINES (2 of 2) 08/06/2020 06/11/2020 COVID-19 VACCINE (3 - 2023-2 5 season) 2024 01/19/2021, 12/22/2020 Adult Td,Tdap Booster 04/25/2028 04/25/2018 , 08/26/2010 SMOKING STATUS SCREENING (On ce After 26 Yrs) Completed 03/30/2022 HEPATITIS A VACCINES Aged Out No long er eligible based on patient's age to complete this topic HIB VACCINES Aged Out No longer eligi ble based on patient's age to complete this topic MENINGOCOCCAL VACCINES (ACWY) Aged Out No longer eligible based on patient's age to complete this topic MENINGOCOCCAL VACCINES (B) Aged Out N o longer eligible based on patient's age to complete this topic Medical Devices Not on file Insurance MEDICARE PART A & B [facility] ONE CARE MEDICARE REPLACEMENT MEDICARE PART A & B ONE CARE MEDICARE REPLACEMENT AMILCAR MIRANDA [facility] MEDICARE PART A & B [facility] ONE CARE MEDICARE REPLACEMENT MEDICARE PART A & B CARE MEDICARE REPLACEMENT AMILCAR MIRANDA [id number] MEDICARE PART A & B ONE C[employer] MEDICARE REPLACEMENT AMILCAR MIRANDA [id number] MEDICARE PART A & B [facility] ONE CARE MEDICARE REPLACEMENT AMILCAR MIRANDA [id number] MEDICARE PART A & B [facility] ONE CARE MEDICARE REPLACEMENT MEDICARE PART A & B [facility] ONE CARE MEDICARE REPLACEMENT MEDICARE PART A & B [facility] ONE CARE MEDICARE REPLACEMENT Care Teams Farmworker Livestock Relationship Specialty Start Date End Date Jai Sams MD [address] [place] [address] [address] [place] [address] PCP - General Internal Medicine 06/03/20 Additional Source Comments The information contained in this document represents components of the legal health record. It is not the complete legal health record.[facility]
== END 2025-01-14 09:58 | disposition home or self-care (01) ==
LOC: HO.HMCH 09:18
PROVIDERS: PCP Internal Medicine; Visit Provider Internal Medicine
DX: E11.65 Type 2 diabetes mellitus with hyperglycemia (principal); I10 Essential (primary) hypertension; E78.00 Pure hypercholesterolemia, unspecified; I25.118 Atherosclerotic heart disease of native coronary artery with other forms of angina pectoris; E66.3 Overweight; K21.9 Gastro-esophageal reflux disease without esophagitis; J45.20 Mild intermittent asthma, uncomplicated; Z12.11 Encounter for screening for malignant neoplasm of colon; Z13.9 Encounter for screening, unspecified

== ENCOUNTER → 2025-01-14 09:17 | Outpatient (BNVA) | payer MEDICARE, SELFPAY | PROVIDERS: PCP Internal Medicine; Visit Provider Internal Medicine | DX: E11.65 Type 2 diabetes mellitus with hyperglycemia (principal); I10 Essential (primary) hypertension; E78.00 Pure hypercholesterolemia, unspecified; I25.118 Atherosclerotic heart disease of native coronary artery with other forms of angina pectoris; E66.3 Overweight; K21.9 Gastro-esophageal reflux disease without esophagitis; J45.20 Mild intermittent asthma, uncomplicated; Z68.28 Body mass index [BMI] 28.0-28.9, adult | CPT/HCPCS: 83036; 96127; 99212 ==

== ENCOUNTER 2025-04-26 10:41 | Outpatient (AMB) | payer MEDICARE, SELFPAY ==
--- NOTE | 2025-04-26 10:46 | AM.OFFVISMDC ---
Intake Vital Signs 04/26/25 10:47 Height 5 ft 3 in Weight 162 lb 4 oz BMI 28.7 BP 120/78 Blood Pressure Location Lt brachial Position Sitting Pulse 75 Pulse Source Pulse Oximeter Temp 97.1 F Temp Source Temporal Artery Scan Pulse Oximetry (%) 97 Oxygen Delivery Method Room Air Intake Visit Reasons: SWV G0439 Allergies lisinopril Allergy (Intermediate, Verified 04/26/25 10:51) Angioedema metformin Adverse Reaction (Intermediate, Verified 04/26/25 10:51) abd pain Medication List - Last Reconciled 04/26/25 by Jai Sams MD albuterol sulfate 90 mcg/actuation 2 puffs inhalation Q6H PRN aspirin (Adult Low Dose Aspirin) 81 mg PO DAILY bisacodyl (Dulcolax (bisacodyl)) 10 mg (2 x 5 mg) PO BEDTIME 7 days blood sugar diagnostic (OneTouch Ultra Test strips) As directed check the blood sugar once a day blood sugar diagnostic (FreeStyle Lite Strips) As directed check the BS QD blood-glucose meter (FreeStyle Lite Meter kit) As directed blood-glucose meter (OneTouch Ultra2 Meter) As directed check blood sugar once a day [DEHUMIDIFIER/VAPORIZER As directed] empagliflozin 25 mg PO DAILY 30 days fluticasone furoate-vilanterol 200-25 mcg/dose (Breo Ellipta) 1 inh inhalation DAILY lancets ([place] VodkaTouch UltraSoft 2 Lancet) As directed check blood sugar once a day lancets (FreeStyle Lancets) As directed check BS QD metoprolol succinate ER 25 mg PO DAILY 90 days peg 3350-electrolytes 236-22.74-6.74 -5.86 gram (Golytely) 240 mL PO Q10M 1 day rosuvastatin 40 mg PO DAILY zafirlukast 20 mg PO BID HPI SWV G0439 HPI Details [place] [facility] gastro[facility]iology, endocrinology Dr. Valladares [facility] Medical History Colon cancer screening CAD (coronary artery disease) Obesity (BMI 30-39.9) CVA (cerebral vascular accident) Annual physical exam Laryngitis Diverticulosis of colon Medicare annual wellness visit, subsequent TSH elevation On beta cm at home Preop exam for internal medicine Encounter for screening colonoscopy Balanitis Hypertension Hypertriglyceridemia GERD (gastroesophageal reflux disease) Asthma Fatty liver Surgical History History of mandibular surgery History of colonoscopy Status post cardiac catheterization Family History Father Myocardial infarction Diabetes Mother Diabetes Skin cancer Social History Housing: Apartment Alcohol intake: current Alcohol intake frequency: holidays/special occasions only Comment: once q 2 week 2-3 drinks Patient Tobacco Use Status: Never used Tobacco Tobacco use type: Cigarette e-Cigarette/Vaping Use: Never Used Second Hand Smoke Exposure: No service: No Current occupational status: disabled Current occupational exposures/hazards: No Cognitive needs: No Hearing needs: No Vision needs: Yes (Glasses) Questionnaire Medicare Wellness Checkup [age] What gender do you identify with?: male During the past 4 weeks, how much have you been bothered by emotional problems such as feeling anxious, depressed, irritable, sad or downhearted, and blue?: not at all During the past 4 weeks, has your physical & emotional health limited your social activities with family, friends, neighbors, or groups?: not at all During the past 4 weeks, how much bodily pain have you generally had?: no pain During the past 4 weeks, was someone available to help you if you needed & wanted help?: no, not at all During the past 4 weeks, what was the hardest physical activity you could do for at least 2 minutes?: light Can you get to places out of walking distance without help? (For eg., can you travel alone on buses, taxis or drive your car?): Yes Can you go shopping for groceries or clothes without someone's help?: Yes Can you prepare your own meals?: Yes Can you do your housework without help?: Yes Because of any health problems, do you need the help of another person with your personal care needs such as eating, bathing, dressing or getting around the house?: No Can you handle your own money without help?: Yes During the past 4 weeks, how would you rate your health in general?: excellent During the past 4 weeks how have things been going for you?: pretty well Are you having difficulties driving your car?: no Do you always fasten your seat belt when you are in a car?: yes, usually During past 4 weeks, have you been bothered by the following: never: Falling or dizzy when standing up, Sexual problems?, Trouble eating well?, Teeth or denture problems?, Problems using the telephone? and Tiredness or fatigue? Have you fallen 2 or more times in the past year?: No Are you afraid of falling?: No Are you a smoker?: no During the past 4 weeks, how many drinks of wine, beer, or other alcoholic beverages did you have?: 1 drink or less per week Do you exercise for about 20 minutes 3 or more times a week?: yes, all the time Have you been given information to help with the following?: yes: Keeping track of your medications? and no: Hazards in your house that might hurt you? How often do you have trouble taking medicines the way you have been told to take them?: I do not have to take medicine How confident are you that you can control & manage most of your health problems?: very confident What is your race?: or origin or descent PHQ-9 Over the last 2 weeks, how often have you been bothered by any of the following problems? 1. Little interest or pleasure in doing things: not at all 2. Feeling down, depressed, or hopeless: not at all 3. Trouble falling or staying asleep, or sleeping too much: not at all 4. Feeling tired or having little energy: not at all 5. Poor appetite or overeating: not at all 6. Feeling bad about yourself - or that you are a failure or have let yourself or your family down: not at all 7. Trouble concentrating on things, such as reading the newspaper or watching television: not at all 8. Moving or speaking so slowly that other people could have noticed. Or the opposite - being so fidgety or restless that you have been moving around a lot more than usual: not at all 9. Thoughts that you would be better off or of hurting yourself in some way: not at all Total score: 0 Depression Screening Interpretation: Negative Depression Screening Done: Yes 83902 - PHQ-9 Billing: Yes Source: Developed by Drs. Haseeb Liang, Mariel Dumont, Almas Mccloud and colleagues, with an educational lora from [employer]. Review of Systems Const Denies poor appetite and Denies weakness Eyes Denies no additional complaints ENT Reports Normal hearing present, Denies dizziness, Denies nasal congestion, Denies tinnitus and Denies sore throat Card Denies chest pain, Denies syncope, Denies rapid heart rate and Denies dyspnea Resp Denies cough and Denies dyspnea GI Denies change in stool character, Reports constipation, Denies diarrhea, Denies nausea and Denies vomiting Denies dysuria and Denies urinary frequency Neuro Reports Normal hearing present, Denies confusion, Denies dizziness, Denies syncope and Denies weakness Psych Denies confusion Physical Exam Vital Signs: Last Vital Signs Temp 97.1 F 04/26/25 10:47 Pulse 75 04/26/25 10:47 BP 120/78 04/26/25 10:47 Pulse Ox 97 04/26/25 10:47 Oxygen Delivery Method Room Air 04/26/25 10:47 BMI result Body Mass Index 28.7 Const General: No confusion Orientation/consciousness: No confusion HEENT Head: Yes normocephalic Ears: external ears normal and TM's normal bilaterally Face and sinus: Yes normal facial exam Mouth: moist mucous membranes Throat: Yes tonsils normal Eyes Conjunctivae: conjunctivae normal Pupils: Equal, round and reactive pupils present and Pupil accommodation reflex normal Direct Ophthalmoscopy: normal light reflex Neck Neck: No lymphadenopathy Thyroid: Thyroid normal Chest Chest palpation & inspection: normal inspection of the chest Resp Effort & Inspection: normal respiratory effort and no audible wheezes Auscultation: clear to auscultation bilaterally, no crackles, no wheezes and lung sounds not diminished Cardio Rate: regular rate Rhythm: regular rhythm Peripheral pulses: radial pulses present and dorsalis pedis present GI Other: colon test pending Palpation (GI): no masses Auscultation: normal bowel sounds and normoactive bowel sounds Rectal Exam - Male: Yes deferred Other: pedal pulse and pin prick good Male General Exam: Yes normal external exam Skin General skin exam: no rashes or lesions noted Rashes: no rashes Neuro General: No confusion Cranial nerves: Yes Equal, round and reactive pupils present and Yes Normal hearing present Cognition (Neuro): normal cognition Gait exam (Neuro): Normal gait present Motor exam (neuro): 5/5 motor strength present throughout Deep tendon reflexes (DTR's): Right brachioradialis reflex intensity grade: 2+, Left brachioradialis reflex intensity grade: 2+, Right patellar reflex intensity grade: 2+ and Left patellar reflex intensity grade: 2+ Extrem General: No edema Office Procedures Flu Questionnaire Does the patient have a severe egg allergy?: No Does the patient have severe life threatening allergies?: No Does the patient have a fever or illness today?: No Has the patient ever had Guillain-[place] Syndrome?: No Has the patient ever had any past reaction to a flu shot?: No Results AMB Hemoglobin A1c AMB Hemoglobin A1c 5.2 % Last Edit by Kat Mahajan CMA on 04/26/25 11:00 Immunizations Fluarix [id number] (PF) 45 mcg (15 mcg x 3)/0.5 mL IM syringe Performing Provider: Jai Sams MD [facility] Administered by: Kat Mahajan CMA on 04/26/25 10:58 Dose Route Admin Location Dispensed Lot Number Expiration Date NDC [place] Applier 0.5 mL IM Left Deltoid 0.5 mL [id number] 12/24/25 [id number] [employer] VIS Given Date VIS Provided VIS Publication Date 04/26/25 Single Vaccine 24 Eligibility Eligibility Date Funding Source Not [facility] Eligible 04/26/25 Private Results Reviewed Results Reviewed: Laboratory Last Values Hgb A1c (Clinic) 5.2 % (4.0-6.0) 04/26/25 10:53 Assessment & Plan Assessment & Plan (1) Medicare annual wellness visit, initial: Code(s): Z00.00 - Encounter for general adult medical examination without abnormal findings Plan: Patient is advised to eat healthy, keep well hydrated, keep active and have adequate sleep. (2) Overweight (BMI 25.0-29.9): Code(s): E66.3 - Overweight Plan: Continue with diet and exercise (3) Type 2 diabetes mellitus with hyperglycemia: Comment: [facility] 02/2023 Code(s): E11.65 - Type 2 diabetes mellitus with hyperglycemia Qualifiers: Diabetes mellitus care home insulin use: without care home use Qualified Code(s): E11.65 - Type 2 diabetes mellitus with hyperglycemia Plan: Decrease the amount of carbohydrate intake, pasta, bread, rice and potatoes are all sugar and that is aside from all the sweet stuff, remember that fruits are good but they are Sweet also. Hemoglobin A1c goal of less than 6.5. Patient takes Jardiance 25 mg once a day only (4) CAD (coronary artery disease): Comment: Ancelmo Murcia- [phone] [facility] Code(s): I25.10 - Atherosclerotic heart disease of [place] coronary artery without angina pectoris Qualifiers: Associated angina: with stable angina Coronary Disease-Associated Artery/Lesion type: [place] artery [place] vs. transplanted heart: [place] heart Qualified Code(s): I25.118 - Atherosclerotic heart disease of [place] coronary artery with other forms of angina pectoris Plan: Control the cholesterol, weight, blood pressure, diabetes continue with 81 mg of aspirin (5) Hypertension: Code(s): I10 - Essential (primary) hypertension Qualifiers: Hypertension type: essential hypertension Qualified Code(s): I10 - Essential (primary) hypertension Plan: Continue with blood pressure medication. Decrease salt intake and exercise on metoprolol 25 mg once a day (6) Hypercholesterolemia: Code(s): E78.00 - Pure hypercholesterolemia, unspecified Plan: Avoid fried foods, chicken skin, eggs, butter margarine, pastries and meat. Be it pork or beef they have a lot of cholesterol LDL goal of less than 70 and triglyceride of less than 150 patient is on rosuvastatin 40 mg once a day and blood work last was June 2024. Will request for blood work (7) GERD (gastroesophageal reflux disease): Code(s): K21.9 - Gastro-esophageal reflux disease without esophagitis Plan: Avoid the foods that causes that usually spicy foods, tomato products, juices, coffee, soda and foods that your sensitive to. After eating do not lie down, allow 3-4 hours before in lie down. And keep the head of bed above 30 degrees to avoid the acid from going up. (8) Colon cancer screening: Comment: Dr. Cartagena 04/2022 1-2 years Code(s): Z12.11 - Encounter for screening for malignant neoplasm of colon Plan: Patient is reminded about colonoscopy (9) Asthma: Comment: Dr. Pendleton [facility] Code(s): J45.909 - Unspecified asthma, uncomplicated Qualifiers: Asthma complication type: uncomplicated Asthma persistence: intermittent Asthma severity: mild Qualified Code(s): J45.20 - Mild intermittent asthma, uncomplicated Plan: Continue with is a fair low cast and has the albuterol inhaler as needed Plan History of Present Illness The patient is a 64-year-old male presenting for an annual wellness visit. His past medical history is significant for controlled type 2 diabetes mellitus, hypertension, asthma, hypercholesterolemia, gastroesophageal reflux disease, and coronary artery disease. He has known allergies to metformin and lisinopril. The patient's last colonoscopy was in 2021 and is currently due for a repeat screening. He follows with specialists in cardiology, endocrinology with Dr. Valladares, and gastroenterology. His last blood work in June 2024 showed a normal blood count with mild thrombocytopenia, normal white blood cell count, and normal electrolytes. At that time, his creatinine was 1.1 mg/dL, fasting blood glucose was 124 mg/dL, hemoglobin A1c was 5.2%, and LDL cholesterol was 62 mg/dL. His liver function tests, prostate-specific antigen, and thyroid levels were normal, and a urinalysis showed no proteinuria. His current medications include aspirin 81 mg, Jardiance 25 mg, metoprolol 25 mg, and rosuvastatin 40 mg, all taken once daily. For asthma, he uses a Breo inhaler daily, takes zafirlukast, and has an albuterol inhaler for as-needed use, which he reports not using recently. Since his last visit in December 2024, the patient reports no new diagnoses or surgeries. Health Maintenance - Colonoscopy: Last performed in 2021 and is due for repeat screening. - Vaccinations: Patient received an influenza vaccine during the visit and had a pneumonia vaccine last year. - Laboratory Monitoring: Last comprehensive labs were in June 2024. - Eye Exam: Patient has a follow-up appointment with his nougat cutter machine in May. - Lifestyle: Encouraged to continue with current diet and exercise routine. - Advance Directives: Discussed having a healthcare proxy form on file; the patient has designated his niece. Social History - Alcohol Use: Reports occasional alcohol consumption, not on a weekly basis. - Tobacco Use: Denies ever smoking. - Exercise: Uses an exercise machine at home and can climb stairs without difficulty. - Nutrition: Advised to eat a healthy diet and drink enough water during the day. - Social Support: The patient has designated his niece as his healthcare proxy. Review of Systems - Constitutional: Denies fever. - HEENT: Reports good hearing. Denies dysphagia or globus sensation. - Neurological: Denies syncope or dizziness. - Cardiovascular: Denies chest pain or heaviness. - Respiratory: Denies orthopnea or dyspnea on exertion, including when climbing stairs. - Gastrointestinal: Denies nausea, vomiting, or diarrhea. - Genitourinary: Denies urinary problems. Reports nocturia once per night. Physical Exam General: Cooperative, healthy appearing, comfortable, no acute distress and well developed Orientation: Patient oriented x3 Limitations: No limitations Head: Normal to inspection Ears: Hearing grossly normal bilaterally Nose: Normal external nose present Face and sinus: Normal facial exam Eyes: Appearance normal, both eyes and all related structures Neck: Normal visual inspection and Yes full ROM Respiratory: Normal respiratory effort and able to speak in complete sentences. Clear to auscultation bilaterally Cardiovascular: Regular rate and rhythm. Normal S1 and S2 GI: Normal to inspection. Soft to palpation and nontender Skin: No rashes or lesions noted Neuro: Patient oriented x3 Extremities: Normal to inspection Results - Labs (from June 2024): - Complete Blood Count: Normal with mild thrombocytopenia and normal white blood cell count. - Comprehensive Metabolic Panel: Electrolytes normal, creatinine 1.1 mg/dL, fasting blood sugar 124 mg/dL. - Hemoglobin A1c: 5.2%. - Liver Function Tests: Normal. - Lipid Panel: LDL 62 mg/dL. - Prostate-Specific Antigen: Normal. - Thyroid Studies: Normal. - Urinalysis: No proteinuria. Plan Patient was informed and verbally consented to the use of an ambient scribe for clinic note documentation during this visit. 1. Annual Wellness Visit The patient is following up for an annual wellness examination. He was advised to continue his current diet and exercise regimen. Repeat labs will be ordered for three months from now. A follow-up visit is scheduled for six months, or sooner if lab results are abnormal. A discussion was held regarding the importance of having a healthcare proxy on file. 2. Diabetes Mellitus, Type 2 The patient's diabetes is well-controlled with a recent hemoglobin A1c of 5.2%, meeting the goal of less than 6.5%. He will continue taking Jardiance 25 mg once daily. He will continue to follow with his music industry intern, Dr. Valladares. 3. Coronary Artery Disease The patient's coronary artery disease is stable. He will continue aspirin 81 mg daily for secondary prevention and will continue to follow with cardiology. 4. Hypertension Blood pressure is well-controlled on his current regimen. He will continue taking metoprolol 25 mg once daily. 5. Hypercholesterolemia Cholesterol levels are well-managed, with an LDL of 62 from June 2024, meeting the goal of less than 70. The plan is to continue rosuvastatin 40 mg once a day and recheck lipids with the next set of labs. 6. Asthma The patient's asthma is stable on his current maintenance medications. He will continue zafirlukast and his Breo inhaler daily, with an albuterol inhaler available for as-needed use. 7. Health Maintenance: Colon Cancer Screening The patient's last colonoscopy was in 2021 and he is due for a repeat screening. He was reminded to schedule a follow-up with his staff climate scientist for the procedure. Discussion Notes I reviewed the patient's comprehensive blood work from June 2024, noting his excellent glycemic control with an A1c of 5.2% and well-managed cholesterol with an LDL of 62 mg/dL. I emphasized that he is due for a repeat colonoscopy, as his last one was in 2021, and he should schedule this with his staff climate scientist. We discussed the plan for future monitoring, and I have placed an order for repeat blood work in approximately three months, for which he will need to be fasting. I confirmed his current medication regimen and his adherence. I advised him that his vaccinations are up to date, as he received the influenza vaccine today and the pneumonia vaccine last year. Regarding supplements, I recommended focusing on a healthy diet to obtain necessary vitamins but confirmed that taking vitamin D is acceptable. We discussed advance care planning, and I requested he provide a copy of his healthcare proxy documentation for his chart. I recommended a follow-up appointment in six months but will contact him sooner if there are any abnormalities in his upcoming lab work. Finally, I provided anticipatory guidance regarding maintaining healthy habits during the holidays and exercising caution due to the continued presence of COVID-19. Patient Instructions - Continue to take your medications as prescribed, including Jardiance, aspirin, metoprolol, and rosuvastatin. - Continue using your Breo inhaler and zafirlukast for your asthma. Keep your albuterol inhaler for emergencies. - You are due for a colonoscopy. Please schedule an appointment with your gastroenterology (stomach) doctor. - You need to get blood work done in about three months (around June or July). Do not eat or drink anything except water for 8 hours before your lab appointment. - Schedule a follow-up visit in six months. We will call you if your blood work shows any problems. - You received your flu shot today, and you are up to date on your pneumonia vaccine. - Please provide us with a copy of your healthcare proxy papers for your medical record. - Continue to eat a healthy diet and stay active. Drink plenty of water during the day. - Be careful as COVID-19 is still spreading, especially as the weather gets colder. Orders: Orders AMB Hemoglobin A1c Today Z13.9 - Encounter for screening, unspecified Influenza [id number] Immunization Today Z23 - Encounter for immunization Quality Reporting (2019) Depression/Bipolar (159/160/161/177) PHQ-9: Total score: 0 Coding Level of Care Code Medicare First (G0438) Diagnoses Medicare annual wellness visit, initial Z00.00 Overweight (BMI 25.0-29.9) E66.3 Type 2 diabetes mellitus with hyperglycemia, without long-term current use of insulin E11.65 Diabetes mellitus care home insulin use: without predatory animal exterminator use Coronary artery disease of [place] artery of [place] heart with stable angina pectoris I25.118 Associated angina: with stable angina Coronary Disease-Associated Artery/Lesion type: [place] artery [place] vs. transplanted heart: [place] heart Essential hypertension I10 Hypertension type: essential hypertension Hypercholesterolemia E78.00 GERD (gastroesophageal reflux disease) K21.9 Colon cancer screening Z12.11 Mild intermittent asthma without complication J45.20 Asthma complication type: uncomplicated Asthma persistence: intermittent Asthma severity: mild Additional Codes PHQ-9 - 52603 - PHQ-9 Billing: Yes ([id number])
[2025-04-26 10:47] VITALS: BP 120/78; PULSE 75; TEMP 36.2; O2SAT 97; BMI 28.7
--- OUTSIDE RECORDS SUMMARY | 2025-04-26 12:08 | XMS_ITS | Encounter Summary ---
Author Organization [employer] [facility] Address [address] [place] [address] [address] [place] [address] Care Team Providers Care Luggage Repairer Name Role Phone Unavailable Primary Care Provider Unavailabl e Encounter Details Date Type Department Care Team (Latest Contact Info) Description 08/18/2021 Abstract [facility] CONVERSIONS Dental, Provider, DDS Social History Tobacco Use Types Packs/Day Years Used Date Smoking Tobacco: Never Assessed Sex and Gender Information Value Date Recorded Sex Assigned at Male 04/26/2022 10:33 AM EDT Legal Sex Male 10:33 AM EDT Gender Identity Choose not to disclose 10:33 AM EDT Sexual Orientation Choose not to disclose 2021 10:33 AM EDT documented as of this encounter Plan of Treatment Not on file documented as of this encounter Visit Diagnoses Not on filedocumented in this encounter
--- OUTSIDE RECORDS SUMMARY | 2025-04-26 12:08 | XMS_ITS | Encounter Summary ---
Author Organization [facility] Address [address] [place] [address] [address] [place] [address] Care Team Providers Care Professor Of Family Medicine Name Role Phone Unavailable Primary Care Provider Unavailabl e Encounter Details Date Type Department Care Team (Latest Contact Info) Description 04/28/2020 Abstract C CONVERSIONS Dental, Provider, DDS Social History Tobacco [...]
--- OUTSIDE RECORDS SUMMARY | 2025-04-26 12:08 | XMS_ITS | Clinical Summary ---
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 Name Role Phone Unavailable Primary Care Provider Unavailabl e Social History Tobacco Use Types Packs/Day Years Used Date Smoking Tobacco: Never Assessed Sex and Gender Information Value Date Recorded Sex Assigned at Male 04/26/2022 10:33 AM EDT Legal Sex Male 10:33 AM EDT Gender Identity Choose not to disclose 10:33 AM EDT Sexual Orientation Choose not to disclose 2021 10:33 AM EDT Plan of Treatment Health Maintenance Due Date Last Done Comments CT Colonography 1959 Colonoscopy 1959 Colorectal Cancer Screening 1959 Depression Screening 1959 FIT DNA/Cologuard 1959 FIT 1959 FOBT 1959 Lipid Panel 1959 Sigmoidoscopy 1959 Alcohol/Substance Use Screening 1971 Tobacco Screening 1971 DTaP/Tdap/Td Vaccines (1 - Tdap) 1978 Pneumococcal Vaccine: 50+ Ye ars (1 of 1 - PCV) 2009 Zoster Vaccines (1 of 2) 2009 COVID-19 Vaccine ( - 2023-2 5 season) 2025 Influenza Vaccine (#1) 2025 RSV Patients and Pa tients Aged 60 years or older (1 - 1-dose 75+ series) 2034 HIB Vaccines Aged Out No longer eligi ble based on patient's age to complete this topic HPV Vaccines Aged Out No longer eligi ble based on patient's age to complete this topic Hepatitis A Vaccines Aged Out No long er eligible based on patient's age to complete this topic Hepatitis B Vaccines Aged Out No long er eligible based on patient's age to complete this topic IPV Vaccines Aged Out No longer eligi ble based on patient's age to complete this topic Meningococcal B Vaccine Aged Out No l onger eligible based on patient's age to complete this topic Meningococcal Vaccine Aged Out No roly lynsey eligible based on patient's age to complete this topic RSV under 20 months Aged Out No longe r eligible based on patient's age to complete this topic Rotavirus Vaccines Aged Out No longer eligible based on patient's age to complete this topic
--- OUTSIDE RECORDS SUMMARY | 2025-04-26 12:08 | XMS_ITS | Clinical Summary ---
Author Organization [facility] Address [address] [place] [address] Phone Care Team Providers Care Gas Jockey Name Role Phone Jai Sams MD Primary Care Provider [phone] Allergies No known active allergies Medications levothyroxine [...] Active Immunizations Immunization Administration Dates Next Due INFLUENZA, SPLIT VIRUS, TRIV ALENT W/ PRESERVATIVE IM 08/26/2010 Influenza Quadrivalent MDCK Preservative Free IM 04/30/2016 Influenza Quadrivalent Prese rvative Free IM 04/23/2020,03/22/2018,09/09/2017,02/11 Influenza Quadrivalent w/ Pr eservative IM 04/30/2019 Pneumococcal polysaccharide PPSV23 03/04/2017, Tdap 04/25/2018,08/26/2010 Zoster [...] HEPATITIS C SCREENING 1977 HIV ONE-TIME SCREENING (18-65 YEARS) 1977 COLOGUARD 2004 COLONOSCOPY 2004 COLORECTAL CANCER SCREENING 2004 FIT TEST 2004 FOBT 2004 SIGMOIDOSCOPY 2004 VIRTUAL COLONOSCOPY 2004 RSV VACCINE (1 - Risk 50-74 years 1-dose series) 2009 PNEUMOCOCCAL VACCINES (50+ years) (2 of 2 - PCV) 03/04/2018 03/04/2017, 09/09/2010 ZOSTER VACCINES (2 of 2) 08/06/2020 06/11/2020 INFLUENZA VACCINE (#1) 2025 , 04/30/2019, 03/22/2018, Additional history exists COVID-19 VACCINE (2024- season) 2025 01/19/2021, 12/22/2020 Adult Td,Tdap Booster 04/25/2028 04/25/2018, 011 SMOKING STATUS SCREENING (Once After 26 Yrs) Completed 03/30/2022 HEPATITIS A [...] file Insurance MEDICARE PART A & B [facility] ONE CARE MEDICARE REPLACEMENT MEDICARE PART A & B CARE MEDICARE REPLACEMENT MEDICARE PART A & B ONE C[employer] MEDICARE REPLACEMENT MEDICARE PART A & B [employer] [facility] [employer] CARE MEDICARE REPLACEMENT MEDICARE PART A & B [facility] ONE CARE MEDICARE REPLACEMENT MEDICARE PART A & B [facility] ONE [facility] MEDICARE REPLACEMENT MEDICARE PART A & B [facility] ONE CARE MEDICARE REPLACEMENT MEDICARE PART A & B [facility] CARE MEDICARE REPLACEMENT MEDICARE PART A & B [facility] ONE CARE MEDICARE REPLACEMENT Care Teams Gas Jockey Relationship Specialty Start Date End Date Jai Sams MD [address] [place] [address] Drive [address] [place] [address] PCP - General Internal Medicine 06/03/20 Additional Source Comments The information contained in this document represents components of the legal health record. It is not the complete legal health record.[facility]
== END 2025-04-26 11:41 | disposition home or self-care (01) ==
LOC: HO.HMCH 10:42
PROVIDERS: PCP Internal Medicine; Visit Provider Internal Medicine
DX: Z00.00 Encounter for general adult medical examination without abnormal findings (principal); E11.65 Type 2 diabetes mellitus with hyperglycemia; E66.3 Overweight; Z68.28 Body mass index [BMI] 28.0-28.9, adult; I25.118 Atherosclerotic heart disease of native coronary artery with other forms of angina pectoris; I10 Essential (primary) hypertension; E78.00 Pure hypercholesterolemia, unspecified; K21.9 Gastro-esophageal reflux disease without esophagitis; Z12.11 Encounter for screening for malignant neoplasm of colon; J45.20 Mild intermittent asthma, uncomplicated; Z23 Encounter for immunization

== ENCOUNTER → 2025-04-26 10:41 | Outpatient (BNVA) | payer MEDICARE, SELFPAY | PROVIDERS: PCP Internal Medicine; Visit Provider Internal Medicine | DX: Z00.00 Encounter for general adult medical examination without abnormal findings (principal); E66.3 Overweight; E11.65 Type 2 diabetes mellitus with hyperglycemia; I25.118 Atherosclerotic heart disease of native coronary artery with other forms of angina pectoris; I10 Essential (primary) hypertension; E78.00 Pure hypercholesterolemia, unspecified; K21.9 Gastro-esophageal reflux disease without esophagitis; J45.20 Mild intermittent asthma, uncomplicated; D64.9 Anemia, unspecified; Z23 Encounter for immunization; Z68.28 Body mass index [BMI] 28.0-28.9, adult | CPT/HCPCS: 83036; 90471; 90656; 96127 ==